=== PATIENT | male | born 1960 | race Caucasian/White ===

== ENCOUNTER 2019-02-01 13:18 | Inpatient (IN) ==
[2019-02-01] MEDS ORDERED: NS 1,000 ML ONE (13:28)
[2019-02-01] MEDS ORDERED: NS 1,000 ML IV ONE ×4 (13:33→20:04)
[2019-02-01] MEDS ORDERED: FENTANYL IV ONE ×2 (13:33→16:09)
[2019-02-01] MEDS ORDERED: ZOFRAN IV ONE (13:51)
[2019-02-01 13:55] LABS: BASO# 0.04 X1000 (0.0-0.2); BASO% 0.3 % (0.0-0.8); EOS# 0.57 X1000 (0.0-0.7); HEMATOCRIT 42.8 % (42.0-52.0); HEMOGLOBIN 14.1 g/dL (14.0-18.0); IMM GRAN% 0.7 % (0.0-0.5); LYMPH# 1.93 X1000 (1.2-3.4); LYMPH% 13.6 % (20.5-51.1); MCHC 32.9 g/dL (33-37); MCV 88.1 FL (81-99); MONO# 1.43 X1000 (0.11-0.59); MONO% 10.1 % (1.7-9.3); NEUT# 10.12 X1000 (1.4-6.5); NEUT% 71.3 % (42.2-75.2); PLT 229 X1000 (130-400); RBC 4.86 XMIL (4.7-6.1); RDW 14.6 % (11.5-14.5); WBC 14.19 X1000 (4.8-10.8)
[2019-02-01 14:19] LABS: INR 0.85; PROTIME 12.1 Seconds (11.0-16.0)
--- NOTE | 2019-02-01 14:22 | EKG Report ---
Test Performed on : 02/01/2019 1:25:23 PM Test Reason : CP Blood Pressure : / mmHG Vent. Rate : 099 BPM Atrial Rate : 099 BPM P-R Int : 140 ms QRS Dur : 134 ms QT Int : 362 ms P-R-T Axes : 029 -42 030 degrees QTc Int : 464 ms Normal sinus rhythm. Left axis deviation Right bundle branch block Abnormal ECG When compared with ECG of 23-JAN-2019 09:08, (Unconfirmed) Vent. rate has increased BY 39 BPM Right bundle branch block is now present Criteria for Inferior infarct are no longer present Unconfirmed Result
--- NOTE | 2019-02-01 14:41 | Diag Imaging Result Doc PS360 ---
EXAM: CHEST-PORTABLE HISTORY: CP TECHNIQUE: Single view of the chest was performed portably. COMPARISON: 01/23/2019 FINDINGS: There are reduced lung volumes. There is pulmonary vascular congestion with peribronchial cuffing and prominent interstitial markings and basilar alveolar infiltrates compatible with cardiogenic edema. There may be trace effusions. No focal consolidation. IMPRESSION: Bilateral infiltrates suggestive of cardiogenic edema . Electronically signed by Lola Smith 02/01/2019 2:38 PM
[2019-02-01 14:42] LABS: ALBUMIN 3.8 g/dL (3.5-5.0); CALCIUM 8.5 mg/dL (8.8-10.2); CREATININE 1.3 mg/dL (0.7-1.2); MAGNESIUM 1.6 mg/dL (1.5-2.7); POTASSIUM 4.1 mmol/L (3.5-5.1); TOTAL BILIRUBIN 2.2 mg/dL (0.20-1.00); TOTAL PROTEIN 6.7 g/dL (6.3-8.3)
[2019-02-01 15:13] LABS: OCCULT BLOOD 1 NEGATIVE (NEGATIVE)
[2019-02-01 15:54] LABS: BILIRUBIN URINE NEGATIVE (NEGATIVE); BLOOD URINE TRACE (NEGATIVE); CLARITY CLEAR (CLEAR); COLOR AMBER; GLUCOSE URINE NEGATIVE (NEGATIVE); KETONE URINE TRACE mg/dL (NEGATIVE); LEUKOCYTES URINE TRACE (NEGATIVE); NITRITE URINE NEGATIVE (NEGATIVE); PROTEIN URINE 1+(30 mg/dL) mg/dL (NEGATIVE); UROBILINOGEN URINE 1 mg/dL
[2019-02-01 15:57] LABS: URINE RBC <10 /HPF (<10)
[2019-02-01 15:58] LABS: URINE BACTERIA 1+ /HFP; URINE CAST EPITHELIAL PRESENT /LPF; URINE CRYSTAL NONE SEEN /HPF; URINE EPITHELIAL CELLS <10 /HPF (<10); URINE SOURCE CLEAN CATCH; URINE YEAST NONE SEEN /HPF
--- NOTE | 2019-02-01 16:33 | Diag Imaging Result Doc PS360 ---
EXAM: CT ANGIOGRM PULMONARY ARTERIES HISTORY: Hypotension s/p cardiac stenting TECHNIQUE: Routine with IV contrast. COMPARISON: 12/25/2014 FINDINGS: There is scattered atherosclerotic calcification within the aorta unchanged from prior. Prominent mediastinal and paraesophageal lymph nodes lymph nodes have decreased from prior study. There are calcified subcarinal change. There is no mediastinal hematoma. No pericardial effusion. No evidence for acute pulmonary embolism. No evidence for aortic aneurysm or dissection. There are bilateral reticular, peripheral infiltrates increased from the prior studies within the upper lobes and lower lobes., particularly the right lower lobe where there is a suggestion of of honeycombing. No effusion or pneumothorax. IMPRESSION: 1.No evidence for acute pulmonary embolism. 2.Increasing bilateral upper and lower peripheral interstitial infiltrates most marked within the right lower lobe where there may be honeycombing. Infectious pneumonitis is considered as is idiopathic pulmonary fibrosis. Correlate clinically. 3.Interval decrease in mediastinal lymphadenopathy. 4. This exam was performed using automated exposure control, adjustment of mA or kV according to patient size, and/or use of iterative reconstruction technique. Electronically signed by Lola Smith 02/01/2019 4:31 PM
[2019-02-01] MEDS ORDERED: ZOSYN 4.5 GM in NS 100 ML IV ONE (16:47)
[2019-02-01] MEDS ORDERED: VANCOMYCIN 1 GM/NS 1 GM/250 ML IVPB IV ONE (16:47)
--- NOTE | 2019-02-01 17:08 | Diag Imaging Result Doc PS360 ---
EXAM: CT ANGIOGRAM ABDOMEN 02/01/2019 HISTORY: uper abd pain, recent NSTEMi TECHNIQUE: This exam was performed using automated exposure control, adjustment of mA or kV according to patient size, and/or use of iterative reconstruction technique. COMMENT: There are coarse interstitial opacities in both lung bases. This is slightly worse than on the previous study of 11/20/2016. There is no evidence of bowel obstruction or abnormal fluid collections. Some of the groundglass opacity which was present previously is no longer present in the right costophrenic sulcus. 3-D MIPS were performed. There is splenomegaly. This has not changed since the previous study. The adrenal glands are not enlarged. There is apparent ostial stenosis of the celiac artery. There are atherosclerotic calcifications in the proximal superior mesenteric artery. There are noncalcified plaques in the infrarenal abdominal aorta. The right renal arteries appear to be patent. There is a small accessory lower pole artery on the right. There are also two left renal arteries. The inferior mesenteric artery is apparently patent. The maximum AP diameter of the infrarenal abdominal aorta is 2.3 cm. There is a fat-containing umbilical hernia. There are atherosclerotic calcifications in both common iliac arteries. There is bilateral spondylolysis at L5. There is vacuum disc phenomenon at L5-S1. IMPRESSION: Atherosclerotic changes as described Electronically signed by Guillermo Myles 02/01/2019 5:06 PM
--- NOTE | 2019-02-01 17:46 | PROVIDER DOCUMENTATION ---
This chart was entered by Nessa Chávez Scribe, acting as scribe for Sina Giles MD. HPI-Cardiac General - General Chief Complaint: Chest Pain Stated Complaint: CHEST PAIN / SWEATING Time Seen by Provider: 02/01/19 13:24 Source: patient, family () Allergies/Adverse Reactions: Patient Allergies Allergy/AdvReac Type Severity Reaction Status Date / Time No Known Allergies Allergy Verified 11/19/16 12:26 Home Medications: Home Medication List Medication Instructions Recorded Confirmed Last Taken Type Leflunomide [Arava] 20 mg PO DAILY 11/19/16 02/01/19 11/18/16 04:00 History RAMIpril [Altace] 10 mg PO DAILY 11/19/16 02/01/19 11/18/16 04:00 History Budesonide/Formoterol Inhaler 2 puff INH RTBID #1 inhaler 11/23/16 02/01/19 Un known Rx [Symbicort 160/4.5 Microgm Inhaler] Albuterol Sulfate Inhaler 2 puff INH Q2H PRN PRN #1 inhaler 10/30/17 02/01/19 Unknown Rx [Ventolin Hfa] Prednisone 1 tab PO TID 01/23/19 02/01/19 Unknown History Aspirin [Aspirin EC] 1 tab PO DAILY 02/01/19 02/01/19 Unknown History Atorvastatin Calcium 40 mg PO HS 02/01/19 02/01/19 Unknown History Metoprolol Tartrate 1 tab PO BID 02/01/19 02/01/19 Unknown History Pantoprazole [Protonix] 1 tab PO DAILY 02/01/19 02/01/19 Unknown History Ticagrelor [Brilinta] 90 mg PO DAILY 02/01/19 02/01/19 Unknown History - History of Present Illness-Cardiac Nature of Presenting Problem: 58 yom presents to ED c/o chest pain, sweatiness, diarrhea and SOB for last 3 days that has gotten worse today. Pt reports he had KS and stent placement [address] Taylor in [place]. Pt has hx of COPD, HTN, KS, CAD. Pt denies abdominal pain, or vomiting. Location: reports: central Quality of Pain: reports: pressure, tightness Severity in ED: severe Onset/Duration: 3 days ago Timing: still present, getting worse Modifying Factors: improves with: nothing Prior Chest Pain/Cardiac Workup: reports: heart attack (stent placed last week in [place]) Associated Symptoms: reports: diaphoresis, shortness of breath, weakness Similar Symptoms Previously?: Yes (KS 1 week ago) Recently Seen Here or By Another Healthcare Provider: Yes (Dr. Taylor) Review of Systems - Adult - REVIEW OF SYSTEMS - ADULT Constitutional: reports: see HPI, chills, fatique Eyes: reports: no symptoms reported Ears, Nose, Mouth & Throat: reports: no symptoms reported Cardiovascular: reports: see HPI, chest pain. denies: syncope Respiratory: reports: see HPI, shortness of breath. denies: cough Gastrointestinal: reports: see HPI, diarrhea, nausea. denies: abdominal pain Genitourinary: reports: no symptoms reported Musculoskeletal: reports: no symptoms reported Integumentary: reports: no symptoms reported Neurological: reports: no symptoms reported Psychiatric: reports: no symptoms reported Endocrine: reports: no symptoms reported Hematologic/Lymphatic: reports: no symptoms reported Allergic/Immunologic: reports: no symptoms reported All Other Systems: Reviewed and Negative Past History - Adult - PAST MEDICAL HISTORY-ADULT Review of Records: reports: Old Records Reviewed, Nursing Assessment Review, Medications Reviewed, Social history reviewed & non-contributory. Major Childhood Illnesses: reports: denies history Cardiovascular: reports: HTN. 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) Respiratory: reports: COPD, lung disease, sleep apnea Gastrointestinal: reports: denies history Obstetrical/Gynecological: reports: denies history Genitourinary: reports: denies history Musculoskeletal: reports: arthritis Neurological: reports: denies history Psychiatric: reports: denies history Endocrine/Immune: reports: denies history Other Conditions: reports: denies history - PRIOR SURGERIES/PROCEDURES Surgical/Procedure History: reports: cholecystectomy - IMMUNIZATION STATUS Childhood Immunizations: See Nurse Assessment Flu Vaccine: See Nurse Assessment - FAMILY HISTORY Family History: reviewed, not pertinent - SOCIAL HISTORY Smoking: cigarettes, greater than 1 pack/day Provider spent 3-5 mins advising pt. on dangers of tobacco.: Discussed manners to quit use, and f/u contacts for add'l counseling. Physical Exam-General - PHYSICAL EXAM-ADULT Initial Vital Signs Reviewed: Yes - CONSTITUTIONAL General Appearance: severe distress, cachetic, lethargic. negative: appears well, combative - HEAD, EARS, NOSE, MOUTH & THROAT HENMT: moist mucous membranes, normal ENT inspection. negative: angioedema - NECK Neck: non-tender, full range of motion, supple, normal inspection. negative: Brudzinski's sign, carotid bruit - RESPIRATORY Respiratory: wheezing (inspiratory and expiratory bilaterally) - GASTROINTESTINAL (ABDOMEN) Abdominal Exam: normal bowel sounds, non tender, soft. negative: rigid, rebound, tenderness - LYMPHATIC Lymphatic: no adenopathy. negative: striations - MUSCULOSKELETAL Extremity: normal inspection. negative: swelling - SKIN Integumentary: diaphoresis. negative: jaundice, laceration(s) - HEART Score HEART Score: History: Moderately Suspicious HEART Score: ECG: Non-Specific Repolarization Disturbance/LBBB/PM HEART Score: Age: 45-65 Years HEART Score: Risk Factors for Atherosclerotic Disease: > or = 3 Risk Factors or History of Atherosclerotic Disease HEART Score: Troponin: 1-3x Normal Limit Total HEART Score:: 6 Progress - PLAN OF CARE/RESULTS Progress/Plan/Lab Results: Vital Signs - 8 hr 02/01/19 13:23 02/01/19 13:28 02/01/19 14:30 Temperature 98 F Pulse Rate 94 H 82 Respiratory Rate 25 H 16 Blood Pressure 98/53 117/64 O2 Sat by Pulse Oximetry 95 97 02/01/19 15:47 02/01/19 16:24 Temperature Pulse Rate 89 97 H Respiratory Rate 16 20 Blood Pressure 131/83 136/82 O2 Sat by Pulse Oximetry 98 97 Laboratory Results - last 24 hr 02/01/19 02/01/19 02/01/19 13:26 13:26 13:26 WBC 14.19 H RBC 4.86 Hgb 14.1 Hct 42.8 MCV 88.1 MCH 29.0 MCHC 32.9 L RDW Std Deviation 14.6 H Plt Count 229 MPV 10.0 Immature Gran % (Auto) 0.7 H Neut % (Auto) 71.3 Lymph % (Auto) 13.6 L Logan % (Auto) 10.1 H Eos % (Auto) 4.0 Baso % (Auto) 0.3 Immature Gran # (Auto) 0.10 H Neut # (Auto) 10.12 H Lymph # (Auto) 1.93 Logan # (Auto) 1.43 H Eos # (Auto) 0.57 Baso # (Auto) 0.04 PT INR PTT (Actin FS) Sodium 133 L Potassium 4.1 Chloride 96 L Carbon Dioxide 22 L Anion Gap 15 BUN 23 H Creatinine 1.3 H Estimated GFR/1.73 m2 57 BUN/Creatinine Ratio 18 Glucose 114 H Calculated Osmolality 271 Calcium 8.5 L Magnesium 1.6 Total Bilirubin 2.20 H AST 38 H ALT 42 Alkaline Phosphatase 138 H Creatine Kinase 112 Troponin T Shn-Q-Hkbkryijfmt Pept 141 Total Protein 6.7 Albumin 3.8 Globulin 3.0 Albumin/Globulin Ratio 1.0 Plasma Lactate Urine Source Urine Color Urine Clarity Urine pH Ur Specific [place] Urine Protein Urine Ketones Urine Blood Urine Nitrite Urine Bilirubin Urine Urobilinogen Urine Microscopic RBC Urine WBC Urine Microscopic WBC Ur Epithelial Cells Urine Crystals Urine Bacteria Urine Casts Urine Yeast Urine Glucose Stool Occult Blood Blood Type Antibody Screen 02/01/19 02/01/19 02/01/19 13:26 13:26 13:50 WBC RBC Hgb Hct MCV MCH MCHC RDW Std Deviation Plt Count MPV Immature Gran % (Auto) Neut % (Auto) Lymph % (Auto) Logan % (Auto) Eos % (Auto) Baso % (Auto) Immature Gran # (Auto) Neut # (Auto) Lymph # (Auto) Logan # (Auto) Eos # (Auto) Baso # (Auto) PT 12.1 INR 0.85 PTT (Actin FS) 30.0 Sodium Potassium Chloride Carbon Dioxide Anion Gap BUN Creatinine Estimated GFR/1.73 m2 BUN/Creatinine Ratio Glucose Calculated Osmolality Calcium Magnesium Total Bilirubin AST ALT Alkaline Phosphatase Creatine Kinase Troponin T 0.035 Duq-L-Prhexleeykr Pept Total Protein Albumin Globulin Albumin/Globulin Ratio Plasma Lactate Urine Source Urine Color Urine Clarity Urine pH Ur Specific [place] Urine Protein Urine Ketones Urine Blood Urine Nitrite Urine Bilirubin Urine Urobilinogen Urine Microscopic RBC Urine WBC Urine Microscopic WBC Ur Epithelial Cells Urine Crystals Urine Bacteria Urine Casts Urine Yeast Urine Glucose Stool Occult Blood NEGATIVE Blood Type Antibody Screen 02/01/19 02/01/19 02/01/19 13:55 13:56 15:40 WBC RBC Hgb Hct MCV MCH MCHC RDW Std Deviation Plt Count MPV Immature Gran % (Auto) Neut % (Auto) Lymph % (Auto) Logan % (Auto) Eos % (Auto) Baso % (Auto) Immature Gran # (Auto) Neut # (Auto) Lymph # (Auto) Logan # (Auto) Eos # (Auto) Baso # (Auto) PT INR PTT (Actin FS) Sodium Potassium Chloride Carbon Dioxide Anion Gap BUN Creatinine Estimated GFR/1.73 m2 BUN/Creatinine Ratio Glucose Calculated Osmolality Calcium Magnesium Total Bilirubin AST ALT Alkaline Phosphatase Creatine Kinase Troponin T Wae-S-Zefmalbjljm Pept Total Protein Albumin Globulin Albumin/Globulin Ratio Plasma Lactate 2.2 Urine Source CLEAN CATCH Urine Color BONNIE Urine Clarity CLEAR Urine pH 5.0 Ur Specific [place] 1.010 Urine Protein 1+(30 mg/dL) A Urine Ketones TRACE Urine Blood TRACE Urine Nitrite NEGATIVE Urine Bilirubin NEGATIVE Urine Urobilinogen 1 Urine Microscopic RBC <10 Urine WBC TRACE A Urine Microscopic WBC 10-20 A Ur Epithelial Cells <10 Urine Crystals NONE SEEN Urine Bacteria 1+ Urine Casts EPITHELIAL PRESENT Urine Yeast NONE SEEN Urine Glucose NEGATIVE Stool Occult Blood Blood Type O POSITIVE Antibody Screen NEGATIVE 02/01/19 16:25 WBC RBC Hgb Hct MCV MCH MCHC RDW Std Deviation Plt Count MPV Immature Gran % (Auto) Neut % (Auto) Lymph % (Auto) Logan % (Auto) Eos % (Auto) Baso % (Auto) Immature Gran # (Auto) Neut # (Auto) Lymph # (Auto) Logan # (Auto) Eos # (Auto) Baso # (Auto) PT INR PTT (Actin FS) Sodium Potassium Chloride Carbon Dioxide Anion Gap BUN Creatinine Estimated GFR/1.73 m2 BUN/Creatinine Ratio Glucose Calculated Osmolality Calcium Magnesium Total Bilirubin AST ALT Alkaline Phosphatase Creatine Kinase Troponin T 0.038 Oly-V-Bqvogdaikbn Pept Total Protein Albumin Globulin Albumin/Globulin Ratio Plasma Lactate Urine Source Urine Color Urine Clarity Urine pH Ur Specific [place] Urine Protein Urine Ketones Urine Blood Urine Nitrite Urine Bilirubin Urine Urobilinogen Urine Microscopic RBC Urine WBC Urine Microscopic WBC Ur Epithelial Cells Urine Crystals Urine Bacteria Urine Casts Urine Yeast Urine Glucose Stool Occult Blood Blood Type Antibody Screen Orders Category Date Time Status Cardiac Monitoring DIRECTED Care 02/01/19 13:31 Active Notify MD of + Sepsis Screen NOW Care 02/01/19 17:05 Active Notify Physician As Ordered Care 02/01/19 17:05 Active Saline Loc NOW Care 02/01/19 13:31 Active NPO Diet 02/01/19 13:31 Active CHEST-PORTABLE [RAD] Stat Exams 02/01/19 13:33 Completed CTA [CT ANGIOGRAM ABDOMEN] [CT] Stat Exams 02/01/19 14:44 Completed CTA [CT ANGIOGRM PULMONARY ARTERIES] [CT] Stat Exams 02/01/19 13:49 Completed BLOOD CULTURE [BLDCUL] Stat Lab 02/01/19 13:45 Ordered CBC WITH ELECTRONIC DIFF [HEME] Stat Lab 02/01/19 13:26 Completed CK PROFILE [SP CHEM] Stat Lab 02/01/19 13:26 Completed COMPREHENSIVE METABOLIC PANEL [CHEM] Stat Lab 02/01/19 13:26 Completed LACTATE, PLASMA [CHEM] Lab 02/01/19 17:35 Received LACTATE, PLASMA [CHEM] Lab 02/01/19 20:15 Uncollected LACTATE, PLASMA [CHEM] Stat Lab 02/01/19 13:56 Completed MAGNESIUM [CHEM] Stat Lab 02/01/19 13:26 Completed OCCULT BLOOD SCREEN STOOL PL Stat Lab 02/01/19 13:50 Completed PRO B-NATRIURETIC PEPTIDE Stat Lab 02/01/19 13:26 Completed PROTIME WITH INR [COAG] Stat Lab 02/01/19 13:26 Completed PTT [COAG] Stat Lab 02/01/19 13:26 Completed TROPONIN T Stat Lab 02/01/19 13:26 Completed TROPONIN T Stat Lab 02/01/19 16:25 Completed TYPE & SCREEN [BBK] Stat Lab 02/01/19 13:[address] W/POSS RFLX CULT [URINALYSIS] Stat Lab 02/01/19 15:40 Completed URINE CULTURE [RM] Routine Lab 02/01/19 15:58 Ordered 0.9% Sodium Chloride Inj [Ns] 1,000 ml Med 02/01/19 13:28 Discontinued .ROUTE As directed 0.9% Sodium Chloride Inj [Ns] 1,000 ml Med 02/01/19 13:33 Discontinued IV 999 mls/hr 0.9% Sodium Chloride Inj [Ns] 1,000 ml Med 02/01/19 13:38 Discontinued IV 999 mls/hr Fentanyl Med 02/01/19 13:33 Discontinued 25 microgm IV NOW ONE Fentanyl Med 02/01/19 16:09 Discontinued 50 microgm IV NOW ONE Ondansetron [Zofran] Med 02/01/19 13:51 Discontinued 4 mg IV NOW ONE Piperacillin/Tazobactam [Zosyn] 4.5 gm Med 02/01/19 16:47 Active 0.9% Sodium Chloride Inj [Ns] 100 ml IV NOW Vancomycin 1 gm/Ns Med 04/08/19 16:47 Active 1 gm in 250 ml IV NOW EKG [EKG] Stat Ther 02/01/19 13:31 Draft EKG [EKG] Stat Ther 02/01/19 16:14 Ordered Result Diagrams: 02/01/19 13:26 02/01/19 13:26 - REASSESSMENT Reassessment #1 Time Reassessed: 14:11 Status: improving Reassessment Comment: was given IV fluids and fentanyl and he is feeling better - EKG 1 Time of EKG reading by physician:: 13:30 EKG Read and Signed by:: Sina Giles EKG Interpretation (*Must complete 3 of following elements*): Abnormal Rate: 99 Rhythm: normal sinus [place]: right QRS: RBB Prior EKG Comparison: changes noted (01/23/19) 2 Time of EKG reading by physician:: 16:27 EKG Read and Signed by:: Sina Giles EKG Interpretation (*Must complete 3 of following elements*): Abnormal Rate: 94 Rhythm: nsr [place]: normal QRS: other (bifascicular bloc) PA Interval: normal ST Wave: non-specific ST changes Prior EKG Comparison: unchanged from prior - XRAY 1 XRAY: Bilateral XRAY Study: Chest Impression: See EMR Report (IMPRESSION: Bilateral infiltrates suggestive of cardiogenic edema . Electronically signed by Lola Smith 02/01/2019 2:38 PM) - CT/MRI 1 CT Study: Angiogram Impression: Abnormal, See EMR Report (EXAM: CT ANGIOGRM PULMONARY ARTERIES HISTORY: Hypotension s/p cardiac stenting TECHNIQUE: Routine with IV contrast. COMPARISON: 12/25/2014 FINDINGS: There is scattered atherosclerotic calcification within the aorta unchanged from prior. Prominent mediastinal and paraesophageal lymph nodes lymph nodes have decreased from prior study. There are calcified subcarinal change. There is no mediastinal hematoma. No pericardial effusion. No evidence for acute pulmonary embolism. No evidence for aortic aneurysm or dissection. There are bilateral reticular, peripheral infiltrates increased from the prior studies within the upper lobes and lower lobes., particularly the right lower lobe where there is a suggestion of of honeycombing. No effusion or pneumothorax. IMPRESSION: 1.No evidence for acute pulmonary embolism. 2.Increasing bilateral upper and lower peripheral interstitial infiltrates most marked within the right lower lobe where there may be honeycombing. Infectious pneumonitis is considered as is idiopathic pulmonary fibrosis. Correlate clinically. 3.Interval decrease in mediastinal lymphadenopathy. 4. This exam was performed using automated exposure control, adjustment of mA or kV according to patient size, and/or use of iterative reconstruction technique. Electronically signed by Lola Smith 02/01/2019 4:31 PM 02/01/19 1631 Interpreting Physician: Lola Smith MD Dictated Date/Time: 02/01/19 1618 cc: Sina Giles MD; Ish Collazo MD) 2 MRI Study: Abdomen Impression: Abnormal, See EMR Report ( EXAM: CT ANGIOGRAM ABDOMEN 02/01/2019 HISTORY: uper abd pain, recent NSTEMi TECHNIQUE: This exam was performed using automated exposure control, adjustment of mA or kV according to patient size, and/or use of iterative reconstruction technique. COMMENT: There are coarse interstitial opacities in both lung bases. This is slightly worse than on the previous study of 11/20/2016. There is no evidence of bowel obstruction or abnormal fluid collections. Some of the groundglass opacity which was present pr eviously is no longer present in the right costophrenic sulcus. 3-D MIPS were performed. There is splenomegaly. This has not changed since the previous study. The adrenal glands are not enlarged. There is apparent ostial stenosis of the celiac artery. There are atherosclerotic calcifications in the proximal superior mesenteric artery. There are noncalcified plaques in the infrarenal abdominal aorta. The right renal arteries appear to be patent. There is a small accessory lower pole artery on the right. There are also two left renal arteries. The inferior mesenteric artery is apparently patent. The maximum AP diameter of the infrarenal abdominal aorta is 2.3 cm. There is a fat-containing umbilical hernia. There are atherosclerotic calcifications in both common iliac arteries. There is bilateral spondylolysis at L5. There is vacuum disc phenomenon at L5- S1. IMPRESSION: Atherosclerotic changes as described Electronically signed by Guillermo Myles 02/01/2019 5:06 PM 02/01/19 1706 Interpreting Physician: Guillermo Myles MD Dictated Date/Time: 02/01/19 1657 cc: Sina Giles MD; Ish Collazo MD) - CONSULTS/PCP/HOSPITALIST Notification #1 *Consult/PCP/Hospitalist*: Huy at [facility] in [place] Time Discussed: 13:38 Consult Disposition: other (faxed EKG to him and he will discuss with collegues and call back) #2 Consult: H[facility] at [facility] in [place] Time Discussed: 13:47 Consult Disposition: other (Huy says EKG is unchanged and to keep pt here) #3 Consult: Verenice paged at 1730 Time Discussed: 17:46 Consult Disposition: Admit (Will admit to ICU, he will put in orders.) Departure - Departure Date of Disposition Decision: 02/01/19 Time of Disposition Decision: 17:30 DIAGNOSIS: Acute hypotension, Tobacco use disorder, Recent non-ST elevation myocardial infarction (NSTEMI) Bilateral pneumonia Qualifiers: Pneumonia type: due to unspecified organism Lung location: unspecified part of lung Qualified Code(s): J18.9 - Pneumonia, unspecified organism Disposition: ADMITTED INPATIENT 09 Certified Medical Emergency: Emergent Condition: Fair Referrals and Follow-Ups: Ish Collazo MD [Primary Care Provider] - - Critical Care Note This patient required my direct & personal management of CC.: Yes Total Time (mins): 45 Critical Care Statement: This patient required my direct personal management to treat or rule out processes, the absence of which, could potentiallly result in sudden, clinically significant life or limb threatening deterioration. Attestation - Physician/ XAVIER Attestation Patient care was provided by Advanced Practice Provider:: No The physician spent face to face time with patient:: Yes Advanced Practice Provider documentation review:: Supervising physician onsite and consulted in the evaluation and care of this patient. The physician did have a face to face encounter with the patient. This chart was documented by the indicated scribe, (Nessa Chávez Scribe) and accurately reflects the services I performed and decisions made by me, Sina Giles MD, as attested by the provider's signature.
[2019-02-01] MEDS ORDERED: ZOFRAN ODT PO PRN (18:17)
[2019-02-01] MEDS ORDERED: MORPHINE IV PRN (18:17)
[2019-02-01] MEDS ORDERED: LEVAQUIN 750 MG/D5W 750 MG/150 ML IVPB IV SCH (18:30)
[2019-02-01] MEDS ORDERED: VANCOMYCIN IV PER PHARMACY MISC SCH (18:30)
[2019-02-01] MEDS: TYLENOL PO PRN (18:40)
[2019-02-01] MEDS: DUONEB (A & A) INH SCH ×2 (18:50→22:49)
[2019-02-01] MEDS ORDERED: VANCOMYCIN 1,500 MG in NS 250 ML IV ONE (19:00)
[2019-02-01] MEDS ORDERED: ZOFRAN IV PRN (19:49)
[2019-02-01] MEDS ORDERED: SOLU-CORTEF IV ONE (19:51)
[2019-02-01] MEDS ORDERED: ZYVOX 600 MG/D5W 600 MG/300 ML IVPB IV SCH (20:00)
[2019-02-01] MEDS: NEO-SYNEPHRINE 50 MG in NS 250 ML IV SCH (20:20)
[2019-02-01 20:36] LABS: UR AMPHETAMINES QUAL NONE DETECTED (NONE DETECT); UR BARBITUATES QUAL NONE DETECTED (NONE DETECT); UR BENZODIAZEPIN QUAL NONE DETECTED (NONE DETECT); UR CANNABINOIDS QUAL NONE DETECTED (NONE DETECT); UR COCAINE QUAL NONE DETECTED (NONE DETECT); UR METHADONE QUAL NONE DETECTED (NONE DETECT); UR METHAMPHETAMINE QUAL NONE DETECTED (NONE DETECT); UR OPIATES QUAL PRESUMPTIVE POSITIVE (NONE DETECT); UR OXYCODONE QUAL NONE DETECTED (NONE DETECT); UR PCP QUAL NONE DETECTED (NONE DETECT); UR PROPOXYPHENE QUAL NONE DETECTED (NONE DETECT); UR TCA QUAL NONE DETECTED (NONE DETECT)
--- NOTE | 2019-02-01 20:46 | HISTORY AND PHYSICAL ---
CHIEF COMPLAINT: Patient came in with just not feeling well. HISTORY OF PRESENT ILLNESS: This is a 58-year-old gentleman with a recent stent. He came in for evaluation today. He was having chest pain and he did not tell me that, but he has also had diarrhea for the last 24 hours, 48 hours, shortness of breath. He had an DC and stent placement about a week ago per Dr. Taylor. He has a history I think of rheumatoid arthritis for which he takes prednisone 30 mg a day and leflunomide as well. In any case, he is on Brilinta and aspirin. When he came in he was hypotensive. Blood pressure was in the low 170s, was reported to me, although not recorded although his triage vitals, I do not see a triage blood pressure though, but it was reported as low as in the 70s. In any case, he was given fluids and then he was admitted for treatment. He had a pulmonary arteriogram which showed no PE and some infectious pneumonitis. Abdominal arteriogram which showed no significant pathology. But in any case, his blood pressure is now stabilized. He does have a temperature of a 100.7. His white count is 14,000 and I am suspicious he has got pneumonia, possible institutional acquired pneumonia. His EKG did not show any ischemic changes. He had a right bundle, but it was not new nor is that technically criteria for ischemia, at least a new right bundle. In any case, his initial troponins have been negative. Dr. Giles called [place] for evaluation for transfer, which they felt that this was not cardiac as he had two sets of cardiac enzymes and his EKG was negative, and that this was possible sepsis. Now, he told me, the patient reports to me though he stopped his prednisone about 3 days ago because he has run out, so this also could be adrenal crisis. The patient admitted for multiple issues. PAST MEDICAL HISTORY: 1. CAD status post PCI, I do not have that data at this point. 2. COPD. 3. Rheumatoid arthritis. 4. Dyslipidemia. 5. Denies diabetes. PAST SURGICAL HISTORY: He has had a cholecystectomy. SOCIAL HISTORY: He smokes a pack a day. He has done that for probably 40 years. He drinks about a case every 2 days, but he stopped drinking he reports about two weeks ago. ALLERGIES: No known drug allergies. MEDICATIONS: He takes Altace 10 daily, Arava 20 daily, aspirin 81 daily, atorvastatin 40 daily, Brilinta 90 daily, metoprolol 25 b.i.d., prednisone 10 t.i.d., Protonix 40 daily, Symbicort 2 b.i.d. and albuterol. REVIEW OF SYSTEMS: Otherwise, negative x a 10-point review of systems. PHYSICAL EXAMINATION: VITAL SIGNS: His current blood pressure I think was 83 systolic, heart rate 99, respiratory rate 16, temp 100.7. 100% on 2 L. GENERAL: A well-developed male in mild distress associated with problems. He is mildly lethargic. HEENT: Eyes are injected. Pupils equal, round, reactive to light. Ears, nose, and throat exam he had moist mucous membranes. Teeth exam is stable. NECK: Supple. CARDIOVASCULAR: Was tachy, but regular. No murmurs, gallops or rubs. PULMONARY: Rales at the bases. No wheezing. GASTROINTESTINAL: GI was soft, nontender, nondistended. Bowel sounds are positive. NEUROLOGIC: Nonfocal. MUSCULOSKELETAL: Strength was 4/5 in all 4 extremities. LABORATORY DATA: Creatinine 1.3. White count 14, hemoglobin and hematocrit 14 and 42, platelets 229,000. D-dimer was elevated. Urine was clear. Heme negative. UDS was not obtained. EKG showed a right bundle which is not new per [facility]'s EKG data. CT scan showed interstitial airspace disease, which could be pneumonia or pulmonary fibrosis. Not a clear lobar consolidation. ASSESSMENT: This is a 58-year-old gentleman who came in with shock, essentially hypotension, persistent hypotension with a complete evaluation in the ER which showed some interstitial air space disease. Concern is shock associated with sepsis. Cardiogenic shock is possible. He does have some interstitial infiltrates, but he has a white count, recent hospitalization and fever and reports cough and is at risk because of chronic immunosuppression for pneumonia. We will try broad-spectrum antibiotics. He has been placed on vancomycin, which I guess we will continue that, and I am going to add cefepime for gram-negative coverage for gram- negative type pneumonia. Problem List: 1. Atypical pneumonia with possible shock. We will continue empiric antibiotics. He has been placed on Levaquin, cefepime and vancomycin. At this point I am just going to leave him on the vancomycin and cefepime. Avoid Levaquin. We have gotten cultures. We will continue supportive care. 2. Shock. We will evaluate his EF with an echo to make sure there is not cardiac shock. We will try to get records from there as well and follow clinically. We will continue fluid resuscitation and monitor closely. His lactate was not consistent with that, but he will need vasopressors, will start Maurilio-Synephrine. 3. Recent non-STEMI with PCI. We will do serial enzymes. We will try to avoid vasopressors if we can, but we need to make sure that he does not have any major issues there. I am going to try to get records from [facility] just to see what is going on. We will continue his aspirin and Brilinta and attempt to get a Cardiology evaluation. 4. Rheumatoid arthritis. Aware of diagnosis. I am concerned about adrenal crisis. We will get a Cortrosyn stim test. I have ordered hydrocortisone and we will follow. DISPOSITION: Pending his clinical status. TIME SPENT: 35 minute critical care time for shock and vasopressors. cc: MD Dr. Brandon Lew MD [facility]
[2019-02-01] MEDS ORDERED: LOPRESSOR PO SCH (21:00)
[2019-02-01] MEDS: LIPITOR PO SCH (21:05)
[2019-02-01] MEDS: MAXIPIME 2 GM in NS 100 ML IV SCH (21:14)
[2019-02-01 21:26] LABS: BILIRUBIN URINE NEGATIVE (NEGATIVE); BLOOD URINE 2+ (NEGATIVE); COLOR AMBER; GLUCOSE URINE NEGATIVE (NEGATIVE); KETONE URINE NEGATIVE (NEGATIVE); LEUKOCYTES URINE TRACE (NEGATIVE); NITRITE URINE POSITIVE (NEGATIVE); PROTEIN URINE 2+(100 mg/dL) mg/dL (NEGATIVE); URINE SOURCE CATH; UROBILINOGEN URINE NORMAL
[2019-02-01 21:27] LABS: CLARITY CLOUDY (CLEAR)
[2019-02-01] MEDS: MORPHINE IV PRN (21:31)
[2019-02-01 21:44] LABS: URINE BACTERIA 2+ /HFP; URINE EPITHELIAL CELLS <10 /HPF (<10); URINE WBC <10 /HPF (<10)
[2019-02-01 22:01] LABS: CK INDEX 0.9 (0.0-2.5); CK-MB 5.8 ng/mL (0.0-5.0)
[2019-02-01] MEDS ORDERED: ZOSYN 3.375 GM in NS 50 ML IV SCH (23:00)
[2019-02-02 01:53] LABS: CK-MB 6.68 ng/mL (0.0-5.0)
[2019-02-02] MEDS: DUONEB (A & A) INH SCH ×2 (03:40→08:00)
[2019-02-02] MEDS ORDERED: SOLU-CORTEF IV SCH (04:00)
[2019-02-02] MEDS: LOVENOX SUBQ SCH (05:48)
[2019-02-02] MEDS: TYLENOL PO PRN ×2 (05:48→10:56)
[2019-02-02] MEDS: MAXIPIME 2 GM in NS 100 ML IV SCH ×2 (07:35→21:05)
[2019-02-02 07:43] LABS: BASO# 0.01 X1000 (0.0-0.2); BASO% 0.1 % (0.0-0.8); EOS# 0.21 X1000 (0.0-0.7); EOS% 1.5 % (0.0-10.0); HEMOGLOBIN 12.9 g/dL (14.0-18.0); IMM GRAN# 0.05 X1000 (0.0-0.04); IMM GRAN% 0.4 % (0.0-0.5); LYMPH# 0.48 X1000 (1.2-3.4); LYMPH% 3.4 % (20.5-51.1); MCH 29.3 PG (27-31); MCHC 33.1 g/dL (33-37); MCV 88.4 FL (81-99); MONO# 0.47 X1000 (0.11-0.59); MONO% 3.4 % (1.7-9.3); MPV 10.4 FL (7.4-10.4); NEUT# 12.75 X1000 (1.4-6.5); NEUT% 91.2 % (42.2-75.2); PLT 176 X1000 (130-400); RBC 4.41 XMIL (4.7-6.1); RDW 14.7 % (11.5-14.5); WBC 13.97 X1000 (4.8-10.8)
--- NOTE | 2019-02-02 07:54 | EKG Report ---
Test Performed on : 02/01/2019 4:25:08 PM Test Reason : repeat for chest pain Blood Pressure : / mmHG Vent. Rate : 094 BPM Atrial Rate : 094 BPM P-R Int : 142 ms QRS Dur : 138 ms QT Int : 378 ms P-R-T Axes : 043 -68 046 degrees QTc Int : 472 ms Normal sinus rhythm. Right bundle branch block Left anterior fascicular block Bifascicular block Abnormal ECG When compared with ECG of 01-FEB-2019 13:25, (Unconfirmed) No significant change was found Unconfirmed Result
[2019-02-02] MEDS: ASPIRIN EC PO SCH (08:27)
[2019-02-02] MEDS ORDERED: BRILINTA PO SCH (09:00)
[2019-02-02] MEDS ORDERED: ARAVA PO SCH (09:00)
[2019-02-02] MEDS: MORPHINE IV PRN (10:12)
[2019-02-02] MEDS: NEO-SYNEPHRINE 50 MG in NS 250 ML IV SCH ×2 (10:17→20:09)
[2019-02-02] MEDS ORDERED: ATIVAN IV PRN ×3 (10:52→14:31)
[2019-02-02] MEDS ORDERED: OFIRMEV 1000 MG/ISOTONIC SOLN 1,000 MG/100 ML BOTTLE IV PRN (10:55)
[2019-02-02] MEDS ORDERED: CORTROSYN IV ONE (10:58)
--- NOTE | 2019-02-02 11:02 | EKG Report ---
Test Performed on : 02/02/2019 09:14:12 AM Test Reason : cp Blood Pressure : / mmHG Vent. Rate : 131 BPM Atrial Rate : 131 BPM P-R Int : 128 ms QRS Dur : 122 ms QT Int : 322 ms P-R-T Axes : 054 -54 038 degrees QTc Int : 475 ms Sinus tachycardia. with occasional premature ventricular complexes. Right bundle branch block Left anterior fascicular block Bifascicular block Cannot rule out Inferior infarct (masked by fascicular block?) , age undetermined Abnormal ECG When compared with ECG of 01-FEB-2019 16:25, (Unconfirmed) premature ventricular complexes. are now present Confirmed by Mars Downs MD ([id number]) on 02/07/2019 11:14:46 AM
[2019-02-02] MEDS: NICODERM PATCH TD SCH (11:10)
[2019-02-02] MEDS ORDERED: HALDOL IV PRN (11:16)
[2019-02-02 11:56] LABS: BANDS 1 % (0-1); LYMPHS 3 % (21-51); MONO 2 % (1-9); SEGS 94 % (42-75)
[2019-02-02] MEDS: SYMBICORT 160/4.5 MICROGM INHALER INH SCH ×2 (12:10→22:07)
[2019-02-02] MEDS ORDERED: ATIVAN IV ONE (13:13)
[2019-02-02] MEDS ORDERED: MOTRIN PO PRN (13:13)
[2019-02-02] MEDS ORDERED: HALDOL IV ONE (13:15)
[2019-02-02] MEDS ORDERED: VANCOMYCIN 2,100 MG in NS 500 ML IV SCH (14:00)
--- NOTE | 2019-02-02 15:01 | CARDIOLOGY CONSULTATION ---
DATE: 02/02/2019 CHIEF COMPLAINT ON PRESENTATION: Was apparently shortness breath, weakness. HISTORY OF PRESENT ILLNESS: Mr. Rick is a 58-year-old gentleman who apparently had a recent circumflex stent over at [facility]. I do not have access to these records acutely. He apparently has been more short of breath recently. During my history he is quite confused and somewhat somnolent. He was able to be awoken with sternal rub and was briefly appropriate with questioning but quickly goes back to sleep. He initially said his primary community health advocate was Dr. Blum but then on questioning again he reported that he recently saw Dr. Taylor and I believe this may have been on his recent inpatient hospitalization over there. He was apparently here and somewhat hypotensive. He has been out of his prednisone recently. On initial presentation he was febrile and has continued to be so. PAST MEDICAL HISTORY: 1. Significant for coronary disease with previous PCI. We are currently awaiting his data. 2. COPD. 3. Rheumatoid arthritis with a longstanding history of steroid usage. 4. Hyperlipidemia. 5. Hypertension. SOCIAL HISTORY: Patient apparently has a tobacco use history of around 1 pack per day. He drinks a case of beer roughly every 2 days but apparently had a recent cessation of this in the last 1 to 2 weeks. FAMILY HISTORY: Is unable to be obtained is review of systems secondary to the patient's somnolence and confusion. PHYSICAL: He had a temperature on presentation of 100.7 and most recently at 12 today it was 101.9. His heart rate is 119 more recently and per telemetry is in sinus tach, his blood pressure is 82/52.General: He is a somnolent, somewhat restless white male. He is in no acute distress. He is not able to answer questions appropriately on a consistent basis. HEENT: Oropharynx is moist. He has poor dentition. His eye examination shows pink conjunctivae, white sclerae. Neck: Shows no obvious thyromegaly or thyroid tenderness. Cardiovascular: He sounds to be in a regular rhythm. He has a tachycardic rate. He has no murmurs. He has no lower extremity edema. Chest: Sounds clear bilaterally. He has no increased work of breathing. He was not cooperative with the examination. It was a difficult exam. Abdomen: Is soft, nontender. He has no obvious organomegaly. Skin: Warm and dry throughout without any rashes. Neurological: He seems to be moving all extremities well. He does not seem to have any lateralizing deficits but he is not cooperative with the examination. PERTINENT DATA: EKG on the at 1325 shows sinus rhythm 99 beats per minute. He has a right bundle branch block and suggestion of a possible old inferior infarct but Q-waves are somewhat narrow. His subsequent EKG on the at 1625 again shows sinus rhythm with a right bundle branch block, no acute findings noted and his final EKG on the at 9:14 shows sinus tach 131 beats per minute, right bundle branch block. No acute ischemic signs or sign of injury. Laboratory data. White count of 13.9, his hematocrit is 39, his platelet count is 176,000. He has a left shift with a small bandemia. His sodium yesterday was 133, potassium 4.1, BUN 23, creatinine 1.3. His T bilirubin was 2.2. His CK 616, MB 5.8. Cardiac enzymes are negative. His UA was reviewed and shows nitrite positive, blood positive, protein positive, trace WBCs, positive opiates screen on his UDS. 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 His chest x-ray showed bilateral infiltrates suggestive of possible edema. His pulmonary arteriogram shows possible infectious pneumonitis versus idiopathic pulmonary fibrosis. ASSESSMENT: Mr. Rick is a 58-year-old gentleman who presented with shortness of breath and has progressed to confusion. He has been hypotensive. PLAN: He had an echocardiogram performed during this hospitalization that demonstrated a normal ejection fraction with no obvious abnormalities. I would recommend continuation of his dual anti- platelet therapy as currently it seems he has had a PCI but we do not have all of his records available. He is on aspirin and I have increased his Brilinta up to b.i.d. He is on high- intensity statin therapy as well. He is somewhat hypotensive so use of his metoprolol and ramipril is being held. His symptoms seem most consistent with possible infection plus or minus adrenal crisis secondary to acute withdrawal the steroids. I discussed this with Dr. Caldera and we restarted hydrocortisone at 50 IV q.8. At this point, I do not have any acute recommendations. cc: Migue Segura MD
[2019-02-02] MEDS: SOLU-CORTEF IV SCH ×2 (15:37→22:51)
[2019-02-02] MEDS: ATIVAN 20 MG in NS 190 ML IV SCH (15:37)
[2019-02-02] MEDS ORDERED: NS 500 ML IV ONE (15:43)
[2019-02-02] MEDS: XOPENEX NEB INH SCH ×2 (16:08→22:08)
--- NOTE | 2019-02-02 16:16 | PROGRESS NOTE ---
DATE: 02/02/2019 SUBJECTIVE: The patient has no major complaints. OBJECTIVE: Blood pressure is 82/52, heart rate 119, respiratory rate 28, temp is 101.9. Cardiovascular: Tachy. Pulmonary: Occasional wheezes. Gastrointestinal: Soft, nontender, nondistended. Bowel sounds are positive. LABORATORY DATA: White count is 13, hemoglobin and hematocrit 12 and 39, platelets 176,000. CPK is 687. Troponins have been negative. PROBLEM LIST: 1. Pneumonia with sepsis and shock. He is on broad-spectrum antibiotics, which includes cefepime and vancomycin. We will continue to follow closely. Sputum culture is pending. 2. Shock. At this point, I think it is a combination of sepsis, mostly and possibly adrenal shock. He has been off of steroids. We have ordered a Cortrosyn stim test which has been completed and we will initiate stress dose steroids and follow. I have discussed the case with Dr. Segura briefly. His echo looks intact, so I do not think this is an acute cardiac issue. 3. Acute encephalopathy, unclear what is causing confusion. He has a strong alcohol history, which I think may be causing his current predicament. He states he did not have any alcohol 2 weeks prior, but I am not sure if that is accurate, and he may be going through some sort of withdrawal. We started Ativan. I will get an ammonia level and a head CT and follow closely. 4. Pneumonia. We will continue empiric antibiotics. Again, he is on vancomycin and Zosyn. He is febrile. Will continue to monitor. TIME SPENT: Critical care time was at least 30 minutes for septic shock requiring resuscitation. We will continue to follow. cc: Duran Caldera MD
[2019-02-02] MEDS ORDERED: POTASSIUM CHLORIDE 20 MEQ, MAGNESIUM SULFATE 2 GM, THIAMINE 100 MG, FOLIC ACID 1 MG, M.... IV SCH ×6 (17:00)
[2019-02-02] MEDS ORDERED: LASIX IV PRN (18:00)
[2019-02-02 20:11] LABS: INFLUENZA A NEGATIVE (NEGATIVE); INFLUENZA B NEGATIVE (NEGATIVE)
[2019-02-02] MEDS: BRILINTA PO SCH (22:48)
[2019-02-02] MEDS: LIPITOR PO SCH (22:49)
[2019-02-03] MEDS: ATIVAN 20 MG in NS 190 ML IV SCH ×2 (00:57→20:31)
[2019-02-03] MEDS: NEO-SYNEPHRINE 50 MG in NS 250 ML IV SCH ×2 (01:41→13:40)
[2019-02-03] MEDS: LOVENOX SUBQ SCH (05:42)
[2019-02-03] MEDS: SOLU-CORTEF IV SCH ×3 (05:42→22:49)
--- NOTE | 2019-02-03 06:07 | Diag Imaging Result Doc PS360 ---
EXAM: CHEST-PORTABLE HISTORY: dyspnea TECHNIQUE: Portable chest single view COMPARISON: 02/01/2019 FINDINGS: Poor inspiratory effort. There are bilateral infiltrates. These are most dense in the mid left lung and right base. The heart is enlarged. Questionable small right pleural effusion. IMPRESSION: Development of dense bilateral infiltrates Electronically signed by Jules Lucas 02/03/2019 6:04 AM
[2019-02-03 07:47] LABS: CALCIUM 6.8 mg/dL (8.8-10.2); CREATININE 3.9 mg/dL (0.7-1.2); MAGNESIUM 2.2 mg/dL (1.5-2.7); PHOSPHORUS 6.1 mg/dL (2.7-4.5); POTASSIUM 4.5 mmol/L (3.5-5.1)
[2019-02-03 07:56] LABS: BASO# 0.01 X1000 (0.0-0.2); BASO% 0.1 % (0.0-0.8); EOS# 0.11 X1000 (0.0-0.7); EOS% 0.9 % (0.0-10.0); HEMATOCRIT 35.7 % (42.0-52.0); HEMOGLOBIN 11.9 g/dL (14.0-18.0); IMM GRAN# 0.09 X1000 (0.0-0.04); IMM GRAN% 0.8 % (0.0-0.5); LYMPH# 0.18 X1000 (1.2-3.4); LYMPH% 1.5 % (20.5-51.1); MCH 29.5 PG (27-31); MCHC 33.3 g/dL (33-37); MCV 88.4 FL (81-99); MONO# 0.59 X1000 (0.11-0.59); MPV 10.5 FL (7.4-10.4); NEUT# 10.78 X1000 (1.4-6.5); NEUT% 91.7 % (42.2-75.2); PLT 171 X1000 (130-400); RBC 4.04 XMIL (4.7-6.1); RDW 14.9 % (11.5-14.5); WBC 11.76 X1000 (4.8-10.8)
[2019-02-03 07:57] LABS: PTT 41.7 Seconds (22.3-41.8)
[2019-02-03 08:02] LABS: INR 1.24; PROTIME 16.2 Seconds (11.0-16.0)
[2019-02-03] MEDS ORDERED: CALCIUM GLUCONATE 1 GM in NS 50 ML IV ONE (09:00)
[2019-02-03 09:06] LABS: BANDS 2 % (0-1); LYMPHS 1 % (21-51); MONO 4 % (1-9); SEGS 93 % (42-75)
[2019-02-03] MEDS: ASPIRIN EC PO SCH (09:19)
[2019-02-03] MEDS: BRILINTA PO SCH ×2 (09:20→22:47)
[2019-02-03] MEDS: XOPENEX NEB INH SCH ×3 (09:27→22:40)
[2019-02-03] MEDS: SYMBICORT 160/4.5 MICROGM INHALER INH SCH ×2 (09:27→22:40)
[2019-02-03] MEDS: NICODERM PATCH TD SCH (09:42)
[2019-02-03 10:26] LABS: BE -9.9 mmoll (-3.0-3.0); BLOOD TYPE ARTERIAL; HCO3-(ACT) 17.1 mmoll (20.0-26.0); METHB 0.4 % (0.0-1.5); O2(CT) 15.7 mL/dL (15.0-23.0); O2HB 94.2 % (95.0-99.0); PCO2(98.6) 29 mmHg (35-45); PO2(98.6) 76 mmHg (60-100); SAMPLE BLOOD; SAO2 95.7 % (95.0-100.0); THB 11.8 g/dL (11.5-17.4); pH(98.6) 7.32 (7.35-7.45)
[2019-02-03 10:29] LABS: ALLEN TEST YES; MODALITY CANNULA
[2019-02-03] MEDS ORDERED: NS 1,000 ML IV SCH (12:00)
--- NOTE | 2019-02-03 12:38 | PROGRESS NOTE ---
DATE: 02/03/2019 SUBJECTIVE: He is still altered. OBJECTIVE: Vital signs: Blood pressure is 93/63, heart rate 64, respiratory rate 20, temperature 97.8 degrees 99% on 2 L. Cardiovascular: Regular rate and rhythm. Pulmonary: Bilateral breath sounds. Clear to auscultation. He has some rales, some wheezing. GI: Soft, nontender, nondistended. Bowel sounds are positive. LABORATORY DATA: White count is down to 11, hemoglobin and hematocrit 11 and 35, platelets 171,000. INR is up to 1.2. pH 7.32, pCO2 29, PaO2 76, bicarb is down to 15. No gap. BUN and creatinine is 47 and 3.8, calcium is 6.8. His cortisol response was consistent with adrenal insufficiency. His random level was 12, but he only had about a 2 bump after cosyntropin, which it did go up a bit but I think he is still adrenally insufficient. PROBLEM LIST: 1. Chest x-ray shows bilateral infiltrates, now more dense than previously. This is pneumonia, bilateral multilobar gram-negative type pneumonia with sepsis and shock. He is on broad spectrum antibiotics. We placed him on cefepime which will now have to renally adjust. I have stopped his vancomycin because he has got renal failure although I do not think that is the mechanism of it, and we will follow as he is at high risk for worsening deterioration. I think I am going to transfer him to the main hospital for pulmonary evaluation. 2. Shock. He is on vasopressors and apparently is doing a little bit better or at least stabilizing. Will continue hydrocortisone at this time until he is off pressors. We can work on weaning and subsequently but he is still on Maurilio-Synephrine. 3. Encephalopathy. I think this is likely related to alcohol withdrawal, could be just delirium associated with sepsis as well. He reports no alcohol for 2 weeks prior to admission, but I am not entirely sure completely positive there, but ammonia level was normal. Head CT has still not been completed. 4. Acute kidney injury. He likely has acute tubular necrosis from hypotension and sepsis. I have pursued renal consult, checking urine electrolytes. We will continue IV fluids and follow. Stopped anything nephrotoxic. He did get ibuprofen yesterday for fever. He got Lasix for positive fluid balance. That has also since been discontinued. We will continue fluids and follow. I am concerned he may have progression of his acute tubular necrosis. 5. Coronary artery disease status post percutaneous coronary intervention. We will continue his aspirin and Brilinta. We really have no choice from that standpoint at this point. Cardiology is following. At this point, there does not appear to be any evidence of myocardial infarction or cardiogenic shock. We will get a pulmonary consult and consider ID consult as well when he gets transferred. 6. Rheumatoid arthritis and history of chronic steroid use. He is usually on 30 mg of prednisone daily, 10 mg t.i.d. I do think he has adrenal crisis and is currently on hydrocortisone. TIME SPENT: 35 minute critical care time. cc: Duran Caldera MD
[2019-02-03] MEDS: MAXIPIME 1 GM in NS 50 ML IV SCH (13:24)
--- NOTE | 2019-02-03 14:36 | Diag Imaging Result Doc PS360 ---
EXAM: CT HEAD W/O CONTRAST HISTORY: encephalopathy TECHNIQUE: Images were obtained from the skull base to vertex without IV contrast as per standard protocol. COMPARISON: None. FINDINGS: There is diffuse cerebral atrophy. There is a 9 mm hypodensity in the left basal ganglia consistent with lacunar infarct. No evidence for hemorrhage. No extra-axial collections. No midline shift. No hydrocephalus. Paranasal sinuses show mild mucosal thickening. Mastoid air cells are clear. There are cerebrovascular calcifications. IMPRESSION: 1.Suspect 9 mm left lacunar infarct of undetermined age. 2.Atrophy and microvascular disease. This exam was performed using automated exposure control, adjustment of mA or kV according to patient size, and/or use of iterative reconstruction technique. Electronically signed by Lola Smith 02/03/2019 2:33 PM
[2019-02-03 14:42] LABS: ALBUMIN 2.7 g/dL (3.5-5.0); DIRECT BILIRUBIN 0.2 mg/dL (0.00-0.20); TOTAL BILIRUBIN 0.5 mg/dL (0.20-1.00); TOTAL PROTEIN 5.2 g/dL (6.3-8.3)
--- NOTE | 2019-02-03 15:12 | NEPHROLOGY CONSULTATION ---
DATE: 02/03/2019 REASON FOR CONSULTATION: Acute kidney injury. HISTORY OF PRESENT ILLNESS: Mr. Rick is a 58-year-old white male with history of coronary disease and recent PCI in [place]. He also has COPD, history of rheumatoid arthritis, and alcoholism. At the time of my exam, he is sedated with an Ativan drip because of incipient DTs. He presented to the hospital with worsening shortness of breath as well as abdominal pain. He underwent CT angiography which showed no pulmonary embolus, but there was apparently evidence of pneumonitis, bilateral upper and lower peripheral interstitial infiltrates. Based on this, he was admitted to the hospital and treated with empiric broad-spectrum antibiotics. He also underwent CT angiography of the abdomen because of his abdominal pain and recent intervention. He had atherosclerotic disease, but no obvious ischemia or occlusion. His creatinine on presentation was 1.3. He was oliguric over the next 2 days, but he was in positive fluid balance such that he is net positive 3 L since admission. Urine output was 900 mL on day 1 and 1300 mL on day 2, but now his urine output is dropping. In that context, his creatinine was 3.9 today. We were asked to assist with his management. PAST MEDICAL HISTORY: As above. CURRENT MEDICATIONS: Include IV Ativan, acetaminophen, aspirin, atorvastatin, haloperidol, hydrocortisone, cefepime, phenylephrine, nicotine, ticagrelor, linezolid, ondansetron. ALLERGIES: None. SOCIAL HISTORY: As above. He is , but his is not present currently. FAMILY HISTORY: Otherwise noncontributory. REVIEW OF SYSTEMS: Otherwise noncontributory. PHYSICAL EXAMINATION: Blood pressure 93/63, heart rate 62, respirations 22, afebrile. Generally, no acute distress. Skin is warm and dry, somewhat plethoric. Pupils are equal and constricted, and gaze is dysconjugate. Conjunctivae are pink. Oropharynx is dry. Neck is supple. Trachea is midline. No jugular venous distention. PMI is difficult to palpate. Regular rate and rhythm with a gallop. Lungs have equal breath sounds, shallow, a few scattered crackles worse on the right. Abdomen is soft, nontender. Bowel sounds present. No organomegaly or masses or bruits. Extremities have 1+ edema. No clubbing or cyanosis. Neurologic exam is obscured by Ativan. IMPRESSION: Acute kidney injury. Most likely, this is secondary to acute tubular necrosis from hypotension and IV contrast. He had adequate imaging, and so I will not order an ultrasound. Urine electrolytes, urine eosinophils, and urine protein are pending. I have reviewed his medications. No changes are required at this time, except that I did stop his IV fluids. cc: Jeff Mcgrath MD [facility]ITALMounika
[2019-02-03] MEDS ORDERED: NS 250 ML ONE (15:25)
[2019-02-03] MEDS: ZYVOX 600 MG/D5W 600 MG/300 ML IVPB IV SCH (15:37)
[2019-02-03 17:23] LABS: URINE SOURCE CATH
[2019-02-03 17:32] LABS: BILIRUBIN URINE NEGATIVE (NEGATIVE); BLOOD URINE 3+ (NEGATIVE); CLARITY SL. CLOUDY (CLEAR); COLOR YELLOW; GLUCOSE URINE NEGATIVE (NEGATIVE); KETONE URINE TRACE mg/dL (NEGATIVE); LEUKOCYTES URINE NEGATIVE (NEGATIVE); NITRITE URINE NEGATIVE (NEGATIVE); PROTEIN URINE 1+(30 mg/dL) mg/dL (NEGATIVE); UROBILINOGEN URINE NORMAL
[2019-02-03 17:46] LABS: UR CREAT RANDOM 129.2 mg/dL (14-26); UR PROT RANDOM 55.3 mg/dL
[2019-02-03] MEDS: HEPARIN SUBQ SCH (18:37)
[2019-02-03 18:40] LABS: URINE BACTERIA 1+ /HFP; URINE EPITHELIAL CELLS <10 /HPF (<10); URINE WBC <10 /HPF (<10); URINE YEAST NONE SEEN /HPF
[2019-02-03 18:41] LABS: URINE CAST GRANULAR PRESENT /LPF; URINE CRYSTAL NONE SEEN /HPF
[2019-02-03] MEDS: LIPITOR PO SCH (22:49)
[2019-02-04] MEDS: MAXIPIME 1 GM in NS 50 ML IV SCH ×2 (01:29→12:21)
[2019-02-04] MEDS: ZYVOX 600 MG/D5W 600 MG/300 ML IVPB IV SCH ×2 (01:30→14:54)
[2019-02-04] MEDS: HEPARIN SUBQ SCH ×4 (03:38→18:38)
[2019-02-04] MEDS: SOLU-CORTEF IV SCH ×3 (05:57→22:36)
[2019-02-04] MEDS: TYLENOL PO PRN ×2 (06:19→15:02)
[2019-02-04] MEDS ORDERED: HALDOL IV PRN (06:34)
[2019-02-04] MEDS ORDERED: ZOFRAN IV PRN (06:44)
[2019-02-04] MEDS ORDERED: ATIVAN 20 MG in NS 190 ML IV SCH (07:00)
[2019-02-04] MEDS ORDERED: NEO-SYNEPHRINE 50 MG in NS 250 ML IV SCH (07:00)
[2019-02-04 07:18] LABS: BASO# 0.01 X1000 (0.0-0.2); BASO% 0.1 % (0.0-0.8); EOS# 0.58 X1000 (0.0-0.7); EOS% 5.5 % (0.0-10.0); HEMATOCRIT 32.8 % (42.0-52.0); IMM GRAN# 0.04 X1000 (0.0-0.04); IMM GRAN% 0.4 % (0.0-0.5); LYMPH# 0.27 X1000 (1.2-3.4); LYMPH% 2.6 % (20.5-51.1); MCH 29.6 PG (27-31); MCHC 33.5 g/dL (33-37); MCV 88.4 FL (81-99); MONO# 0.42 X1000 (0.11-0.59); MPV 10.1 FL (7.4-10.4); NEUT# 9.16 X1000 (1.4-6.5); NEUT% 87.4 % (42.2-75.2); PLT 195 X1000 (130-400); RBC 3.71 XMIL (4.7-6.1); RDW 14.9 % (11.5-14.5); WBC 10.48 X1000 (4.8-10.8)
--- NOTE | 2019-02-04 07:39 | Diag Imaging Result Doc PS360 ---
EXAM: CHEST-PORTABLE 02/04/2019 HISTORY: pneumonia TECHNIQUE: AP portable at 0725 COMMENT: There is increased interstitial markings particularly on the left. This is definitely worse than on the previous study of 02/01/2019. There is a PICC line on the left with its tip in the superior vena cava. IMPRESSION: Worsened pulmonary edema and/or pneumonia. Electronically signed by Guillermo Myles 02/04/2019 7:37 AM
[2019-02-04 08:09] LABS: ALBUMIN 2.7 g/dL (3.5-5.0); CALCIUM 7.3 mg/dL (8.8-10.2); CREATININE 1.9 mg/dL (0.7-1.2); PHOSPHORUS 3.1 mg/dL (2.7-4.5); POTASSIUM 4.3 mmol/L (3.5-5.1); POTASSIUM 4.4 mmol/L (3.5-5.1)
[2019-02-04] MEDS: NICODERM PATCH TD SCH (08:14)
[2019-02-04] MEDS: ASPIRIN EC PO SCH (08:14)
[2019-02-04 08:15] LABS: CALCIUM 6.9 mg/dL (8.8-10.2)
[2019-02-04] MEDS: BRILINTA PO SCH ×2 (08:17→20:10)
[2019-02-04 09:32] LABS: SEGS 89 % (42-75)
[2019-02-04 09:33] LABS: EOS 1 % (1-10); LYMPHS 5 % (21-51); MONO 5 % (1-9)
[2019-02-04] MEDS: XOPENEX NEB INH SCH ×3 (09:42→22:13)
[2019-02-04] MEDS: SYMBICORT 160/4.5 MICROGM INHALER INH SCH ×2 (09:42→22:11)
[2019-02-04] MEDS: OFIRMEV 1000 MG/ISOTONIC SOLN 1,000 MG/100 ML BOTTLE IV PRN ×2 (12:00→22:43)
--- NOTE | 2019-02-04 12:01 | INFECTIOUS DISEASE CONSULT REP ---
DATE: 02/04/2019 CONCLUSION: The patient has bilateral pulmonary infiltrates which I think are most likely due to a pneumonia. There may be a component of pulmonary venous congestion involved as well. The patient also has a diffuse rash, the etiology of which is unknown by me. It is been there for a month, so I doubt it is related to any medications that the patient has received since coming to the hospital here. Patient told me that in the past day he has been having diarrhea. I think it is possible he has Clostridium difficile diarrhea. RECOMMENDATIONS: I agree with treating the patient with Zyvox and cefepime. The cefepime dose at has been modified because the patient has renal failure. I have ordered a procalcitonin level also. Since the patient said he has had diarrhea in the last day, I have also ordered a stool for C difficile. When the patient is feeling better, I am going to request surgery to get a skin biopsy and send it for pathology as well as culture. DISCUSSION: The patient tells me that he, approximately 10 days ago, started having fever and cough. He became more short of breath. He produced a sputum which was yellow in color. LABORATORY STUDIES: [place] [address], hemoglobin 11, platelet count 195,000. Creatinine is 1.9. GFR is 37. Liver function studies are normal. Streptococcal pneumoniae urine antigen was negative. Swab for influenza was negative. Blood and urine cultures thus far negative. Sputum culture grew normal rosy. PAST MEDICAL HISTORY/REVIEW OF SYSTEMS: Integument: Patient has had a red rash for the past month, the etiology of which is uncertain. I plan to get a skin biopsy from the patient when he is feeling better. Eyes and ears: He denies any trouble hearing or seeing. Neck: No stiffness. Respiratory: See present illness. Cardiac: The patient apparently recently had a myocardial infarction. Currently, he is not complaining of chest pain or palpitations. Genitourinary: No dysuria or flank pain. Gastrointestinal: The patient in the past day started having diarrhea. The patient has not been vomiting. Neurologic: Patient does not have seizures, he has not recently lost motor or sensory function. PREVIOUS HOSPITALIZATIONS AND OPERATIONS: Recently the patient was hospitalized at [facility] for a myocardial infarction and coronary artery stent placement. The patient has had a cholecystectomy. He has had admissions for facial and knee trauma. MEDICAL DISEASES: Positive for morbid obesity, COPD, coronary artery disease, myocardial infarction, rheumatoid arthritis and hyperlipidemia. INFECTIOUS DISEASE HISTORY: Positive for pneumonia and UTI. FAMILY HISTORY: Positive for diabetes mellitus, hypertension, myocardial infarction, and cancer. SOCIAL HISTORY: [place] He has a dog as a pet. 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 He smokes cigarettes and drinks alcoholic beverages. He denies drug abuse. ALLERGIES: The patient's chart lists no known drug allergies. HOME MEDICATIONS: 1. Albuterol inhaler. 2. Aspirin. 3. Atorvastatin. 4. Arava. 5. Symbicort. 6. Metoprolol. 7. Pantoprazole. 8. Prednisone. 9. Altace. Brilinta. PHYSICAL EXAMINATION: Vital Signs: Temperature is 101 degrees, pulse 103, respirations 24, blood pressure 132/72. Patient weighs 270 pounds. General: This is a morbidly obese, middle-aged male. He seems to be short of breath even at rest. Head/eyes/ears/nose/throat: He can hear my spoken words and see near objects. He does not have any white coating on his tongue. Sinuses are not tender. Neck: No pain with movement. Thorax: Patient has an increased AP diameter of the chest. Lungs: Patient has bilateral wheezing. Abdomen: Soft and not tender. Integumentary: Patient has the patient has a diffuse erythematous blotchy type of rash Neurologic: The patient is awake. He can move his extremities. There is no tremor. His sensation was intact to touch. His memory as regarding his medical history was decreased. Thank you for the consult. cc: Wallace Betancourt MD
[2019-02-04] MEDS ORDERED: SODIUM CHLORIDE 0.9% INJ SCH (12:30)
--- NOTE | 2019-02-04 13:52 | CONSULTATION ---
DATE OF CONSULTATION: 02/04/2019 Mr. Rick is 58 years old and he has a history reported to me of feeling short of breath with chest pain. He felt a little bit weak all over. Vision was a little bit blurred and he saw some spots in his vision. There was never any focal loss of visual field, blindness, or diplopia. He did not notice weakness on one side of his body more than the other. He did not lose consciousness. There was no memory gap. He presented and was found to have low blood pressure and fever. He has been afebrile today. Heart rate has ranged 60s to 110s. Systolic blood pressure has ranged 80s to 150s. Echocardiogram showed no source of embolus. Noncontrast CT showed a possible old lacunar area in the left hemisphere. I do not find a prior scan for comparison. Lab included WBC 14,000, down to 10,000 today. He has anemia. Calcium was 6.8 yesterday. BUN has climbed into the 40s. Past history is reported to include ischemic heart disease, coronary stenting, hypertension, dyslipidemia, COPD. He smokes cigarettes. He reports using ethanol regularly, usually 12 beers a day. He thinks he stopped that a week or week and a half prior to admission. reports he drinks several beers daily when off work and then stops drinking beer a day or so before return to work. She reports no history of DTs. Medicines include aspirin and Brilinta, a statin, blood pressure medicines. His urine drug screen was positive for opiates, but I do not see an opiate on his home medicine list. On exam now, Mr. Rick is awake, alert, attentive. He is oriented. Speech is not dysarthric. Language function is intact on bedside testing. I did not test his cognitive function thoroughly. Head and neck are unremarkable. There is no meningismus. Visual hickman are full tested grossly by confrontational finger counting. Extraocular movements are full. Pupils react to bright light. Facial motility is symmetric. Facial sensation is intact. Gag is intact. Tongue is midline. Strength is symmetric in the arms and legs. He has good power throughout. He did well on [id number] testing bilaterally. He reports diminished pinprick appreciation in a stocking pattern bilaterally. Proprioception is good at the great toe MTP joint bilaterally. Reflexes are 1+ at the wrists and absent at the ankles bilaterally. I did not test his gait. IMPRESSION: No definite neurologic diagnosis. The CT finding is noted and may be old and unrelated to his current presentation. He has risk factors for cerebrovascular ischemic problems. 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 There could be a component of alcohol withdrawal to whatever mental status changes were noted earlier, but he seems to be doing well mentally now. The urine drug screen report is noted and other substance use could also be contributing. Blood pressure is better now, but earlier hypotension could also have contributed to any altered mentation. I do not have any urgent suggestion from a neurologic standpoint. 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 When he is settled medically, we need to recommend aggressive management of his cerebrovascular risk factors. Thanks for asking neurology to see Mr. Rick. cc: MD EITAN Castillo III
[2019-02-04] MEDS: PROTONIX IV SCH (15:02)
[2019-02-04] MEDS: ATIVAN IV PRN ×2 (15:10→21:48)
--- NOTE | 2019-02-04 16:30 | PROGRESS NOTE ---
DATE: 02/04/2019 INTERVAL HISTORY: Patient's mental status much improved. Now awake, alert, and following commands well. Off of pressors with reasonable blood pressure. Still requiring a fair amount of oxygen. Still with tremor but tremor is more of a coarse pill-rolling tremor than a fine tremor that I would associated with alcohol withdrawal. No other acute events overnight. No new complaints. Patient had one low-grade fever overnight to 100.3 but then in the early afternoon had another significant fever of 102.8. REVIEW OF SYSTEMS: Twelve point review of systems negative except as per interval history. LABS: WBC 10.4, hemoglobin 11.0, hematocrit 32.8, platelets 195,000. Sodium 131, potassium 4.3, BUN 44, creatinine 1.9, glucose 125. Vital signs: T-max 102.8, pulse 109, respiratory rate 23, blood pressure 138/77, O2 saturation 97% on 3 L nasal cannula. PHYSICAL EXAMINATION: General: No acute distress. Vital signs: As above. HEENT: Normocephalic, atraumatic. Moist mucous membranes. No cervical adenopathy. No jaundice. Cardiovascular: Minimally tachycardic but regular. No murmurs noted. Pulmonary: Few scattered rales and moderate expiratory wheeze but good air entry. No increased work of breathing. Abdomen: Soft, nontender, nondistended. Bowel sounds positive. Extremities: Peripheral pulses intact. No clubbing or cyanosis. Neurologic: Cranial nerves grossly intact. No focal deficits identified. Low-frequency pill-rolling type tremor noted. Psychiatric: Normal mood and affect. Awake, alert, and oriented x3, although he does display some mild confusion intermittently. Skin: No new rashes or lesions identified. ASSESSMENT AND PLAN: 1. Acute hypoxic respiratory failure, pneumonia, septic shock. Patient on broad-spectrum antibiotics with cefepime and Zyvox. ID following and assisting with management. Required pressors initially, but off since last night. Still requiring a fair amount of oxygen, although this is somewhat improved. Continue supportive care and antibiotics as above. 2. Acute hypoxic respiratory failure, multifactorial with pneumonia and likely COPD. Patient with wheezing on exam. Continue nebs, Symbicort. If wheezing worsens then we will consider adding IV steroids. 3. Metabolic encephalopathy. Likely delirium is related to acute infection and sepsis. May have had some aspect of alcohol withdrawal, although patient and family reported no alcohol consumption for approximately 2 weeks prior to admission. Much improved now. Continue to monitor. 4. Acute kidney injury, likely acute tubular necrosis from hypotension and sepsis. Nephrology following. Creatinine significantly improved today. Continue to monitor. 5. Lacunar stroke. Patient with CT showing subacute to chronic lacunar infarct. Does not appear to be acute. No focal deficits identified. Already on dual antiplatelet therapy and high- intensity statin. May need MRI at some point, but no need for further workup until other medical issues are stabilized. 6. Coronary artery disease with recent stent. Continue aspirin and Brilinta. Cardiology following. 7. Rheumatoid arthritis and chronic steroid use. Continue hydrocortisone as it is unclear if possible adrenal insufficiency may have been contributing to his shock.
--- NOTE | 2019-02-04 19:36 | NEPHROLOGY PROGRESS NOTE ---
DATE: 02/04/2019 SUBJECTIVE: He is awake and alert. He is somewhat somnolent but able to answer questions. Moaning continuously. Staff states that he recently had a dose of Ativan, and his mental status has been lower since then. OBJECTIVE: Vital Signs: Blood pressure 138/77, heart rate 109, respirations 33, T-max 102.8 degrees. General: No acute distress. Skin: Warm and dry. Conjunctivae are pink. Neck: Veins are distended. Trachea is midline. Heart: Regular and tachycardic. Lungs: Tachypneic with few scattered rales. Abdomen: Soft, nontender. Bowel sounds present. Extremities: 1+ edema. No clubbing or cyanosis. IMPRESSION: 1. Acute kidney injury. BUN and creatinine are improved today, and urine output is improved. He still has a moderate mixed metabolic acidosis. He is able to take p.o. fluids so we will continue oral hydration today and observe his response over the next 24 hours. cc: Jeff Mcgrath MD
[2019-02-04] MEDS: LIPITOR PO SCH (20:10)
--- NOTE | 2019-02-04 23:00 | CONSULTATION ---
DATE OF CONSULTATION: 02/04/2019 REQUESTING PROVIDER: Jose C Caldera MD. REASON FOR CONSULTATION: Respiratory failure, pneumonia, shock. HISTORY OF PRESENT ILLNESS: This is a 58-year-old male who has medical history of coronary artery disease, COPD, rheumatoid arthritis, hypertension, and hyperlipidemia. He had a recent circumflex stent at [facility]. He presented to the [place] ER on 02/01/2019 with chest pain, sweatiness, diarrhea, and shortness of breath for 3 days. Initial workup in the ER revealed atypical pneumonia with possible shock, sepsis, and altered mental status. He has been admitted to the ICU for further evaluation and management. At the time of my examination, the patient is lying in bed with mild respiratory distress. He reports left lower quadrant abdominal pain. He is diaphoretic, with mild tremor noted. He said he had diarrhea since last time when he was in [facility]. The nurse and the PARTY HOST help him get to the bedside commode. Green, dark, loose stool is noted on the patient's gown and bed. He reports shortness of breath, chest pain, fever, nausea, general weakness, and chronic arthritic knee pain. He has no cough, wheezing or unintentional weight change. PAST MEDICAL HISTORY: 1. Coronary artery disease with previous PCI. 2. COPD. 3. Rheumatoid arthritis, on steroids for a long time. 4. Hyperlipidemia. 5. Hypertension. 6. Cholecystectomy. SOCIAL HISTORY: The patient smokes 1-1/2 packs a day for about 40 years. He drinks every 2 days. He reports no history of illicit drug use. FAMILY HISTORY: Positive for coronary artery disease, heart attack, and cancer. ALLERGIES: No known drug allergies. REVIEW OF SYSTEMS: A 10-point review of systems was conducted, and the pertinent is listed within the HPI. Otherwise noncontributory. PHYSICAL EXAMINATION: Vital Signs: Temperature 100.3, blood pressure 150/68, pulse 101, respiratory rate 29, oxygen saturation 97% on nasal cannula at 2 L. General: Morbidly obese, in mild respiratory distress. Appears diaphoretic and anxious, with mild extremity tremor noted. HEENT: Atraumatic. Trachea midline. Mucosa pink and moist. Respiratory: Tachypnea. Symmetrical excursion. Auscultation revealed early inspiratory crackles bilaterally. Cardiovascular: Regular rate and rhythm. Gastrointestinal: Bowel sounds normoactive in all 4 quadrants. Soft, distended. Tenderness on left lower quadrant. Extremities: No pedal edema. No cyanosis. No clubbing. Dorsalis pedis 1+ bilaterally. Neurologic: Alert and oriented x3. Generalized weakness. Speech fluent. Follows commands. LABORATORY DATA: White blood cells 10.48, hemoglobin 11.0, hematocrit 32.8, platelet 195,000. Sodium 132, potassium 4.4, chloride 102, carbon dioxide 15, BUN 44, creatinine 1.9, glucose 123. IMAGING DATA: Chest x-ray revealed worsening pulmonary edema and/or pneumonia. ASSESSMENT: This is a 58-year-old male with a medical history of coronary artery disease, chronic obstructive pulmonary disease, rheumatoid arthritis, hyperlipidemia, and hypertension. He has been admitted to the ICU since 02/01/2019 with atypical pneumonia, septic shock, and acute encephalopathy. 1. Acute hypoxemic respiratory failure. 2. Septic shock. 3. Pneumonia. 4. Delirium tremens. PLAN: 1. Continue supplemental oxygen. 2. Start BiPAP at bedtime and as needed. 3. Continue antibiotics, steroids, and bronchodilators. 4. Follow up with ABG, CBC, BMP, and chest x-ray. 5. Follow up with blood culture. 6. Continue GI and DVT prophylaxis. 7. Further recommendation pending hospital course. Thank you for the courtesy of this consult. Dictated by EMMANUELLE Quintanilla for Edinson Berg MD cc: EMMANUELLE Quintanilla MD [facility]
[2019-02-05] MEDS: MAXIPIME 1 GM in NS 50 ML IV SCH (01:03)
[2019-02-05] MEDS: ATIVAN IV PRN (01:04)
[2019-02-05] MEDS: ZYVOX 600 MG/D5W 600 MG/300 ML IVPB IV SCH ×2 (02:24→16:26)
[2019-02-05] MEDS: HEPARIN SUBQ SCH ×3 (02:33→21:38)
[2019-02-05 05:33] LABS: BASO# 0.02 X1000 (0.0-0.2); BASO% 0.2 % (0.0-0.8); EOS# 0.56 X1000 (0.0-0.7); EOS% 6.4 % (0.0-10.0); HEMATOCRIT 31.3 % (42.0-52.0); HEMOGLOBIN 10.4 g/dL (14.0-18.0); IMM GRAN# 0.06 X1000 (0.0-0.04); IMM GRAN% 0.7 % (0.0-0.5); LYMPH# 0.34 X1000 (1.2-3.4); LYMPH% 3.9 % (20.5-51.1); MCH 29.3 PG (27-31); MCHC 33.2 g/dL (33-37); MCV 88.2 FL (81-99); MONO% 4.6 % (1.7-9.3); MPV 9.7 FL (7.4-10.4); NEUT# 7.34 X1000 (1.4-6.5); NEUT% 84.2 % (42.2-75.2); PLT 192 X1000 (130-400); RBC 3.55 XMIL (4.7-6.1); RDW 14.6 % (11.5-14.5); WBC 8.72 X1000 (4.8-10.8)
[2019-02-05] MEDS: OFIRMEV 1000 MG/ISOTONIC SOLN 1,000 MG/100 ML BOTTLE IV PRN (05:55)
[2019-02-05] MEDS: SOLU-CORTEF IV SCH ×3 (06:01→21:37)
[2019-02-05 06:03] LABS: AGAP 9; ALBUMIN 2.4 g/dL (3.5-5.0); BUN 28 mg/dL (8-22); CALCIUM 7.8 mg/dL (8.8-10.2); CHLORIDE 104 mmol/L (98-107); COSMO 272; CREATININE 1.2 mg/dL (0.7-1.2); ESTIMATED GFR > 60; GLUCOSE 101 mg/dL (70-104); PHOSPHORUS 2.8 mg/dL (2.7-4.5); POTASSIUM 4.1 mmol/L (3.5-5.1); SODIUM 133 mmol/L (136-145); TCO2 20 mmol/L (25-35)
[2019-02-05] MEDS: BRILINTA PO SCH ×2 (08:42→21:37)
[2019-02-05] MEDS: NICODERM PATCH TD SCH (08:42)
[2019-02-05] MEDS: ASPIRIN EC PO SCH (08:42)
[2019-02-05] MEDS ORDERED: DUONEB (A & A) INH PRN (09:13)
--- NOTE | 2019-02-05 09:15 | PROGRESS NOTE ---
DATE: 02/05/2019 Mr. Rick is more calm today, less tremulous, continues alert and attentive. Voice is strong and speech is not dysarthric. Language function is intact. Limb power is symmetric. Neck is supple without meningismus. I discussed the imaging finding of old left subcortical lacune. He reports no history of clinical stroke and no episode of focal neurologic problem. I do not have any new suggestion from neurology standpoint today. Thanks for asking us to see Mr. Rick. cc: MD EITAN Castillo III
[2019-02-05] MEDS ORDERED: CATHFLO IV ONE (09:16)
[2019-02-05] MEDS ORDERED: STERILE WATER INJ. INJ ONE (09:16)
[2019-02-05] MEDS: XOPENEX NEB INH SCH ×3 (09:25→21:30)
[2019-02-05] MEDS: SYMBICORT 160/4.5 MICROGM INHALER INH SCH (09:26)
[2019-02-05 09:28] LABS: ALLEN TEST YES; BLOOD TYPE ARTERIAL; HCO3-(ACT) 22.6 mmoll (20.0-26.0); METHB 0.9 % (0.0-1.5); MODALITY CANNULA; O2(CT) 13.8 mL/dL (15.0-23.0); O2HB 95.3 % (95.0-99.0); PCO2(98.6) 27 mmHg (35-45); PO2(98.6) 76 mmHg (60-100); SAMPLE BLOOD; SAO2 96.8 % (95.0-100.0); THB 10.2 g/dL (11.5-17.4); pH(98.6) 7.47 (7.35-7.45)
--- NOTE | 2019-02-05 10:04 | Diag Imaging Result Doc PS360 ---
EXAM: CHEST-1 VIEW 02/05/2019 HISTORY: SOB TECHNIQUE: AP portable at 0817 COMMENT: There are reticulonodular opacities throughout both lungs. This is slightly more diffuse in appearance than on 02/04/2019. Still there is somewhat worse opacity in the left upper lobe than elsewhere. There is a PICC line on the left with its tip in the superior vena cava. IMPRESSION: Pulmonary edema and/or pneumonia. Electronically signed by Guillermo Myles 02/05/2019 10:02 AM
[2019-02-05] MEDS: SOLU-MEDROL IV SCH ×2 (12:44→23:22)
[2019-02-05] MEDS: PROTONIX IV SCH (12:44)
[2019-02-05] MEDS ORDERED: BENADRYL IV SCH (14:00)
--- NOTE | 2019-02-05 16:16 | INFECTIOUS DISEASE PROGRESS NO ---
DATE: 02/05/2019 HISTORY OF PRESENT ILLNESS: The patient has bilateral pulmonary infiltrates which I think most likely are due to pneumonia, although there could be a component of pulmonary venous congestion. As regarding the patient's rash, I have discussed with the patient his and it seems that initially the patient had a rash in both axillae and in both groin areas, and since the patient has come in the hospital he has developed a diffuse erythematous rash. Since the diffuse erythematous rash only developed after the patient was in the hospital, I think that it is a better chance that the rash is secondary to one of the medications. I am treating the patient with Zyvox and cefepime, and I think cefepime would be the most likely organism of the 2 antibiotics to cause a rash. MEDICATIONS: The patient currently is getting Zyvox and cefepime, but as mentioned above I think the diffuse rash would be more likely to be secondary to cefepime than Zyvox. Because of that I am going to discontinue cefepime and put the patient on aztreonam. I have already ordered a procalcitonin level so that we can determine if the patient has a bacterial pneumonia or not. PHYSICAL EXAMINATION: Vital Signs: Temperature is 98.1 degrees, pulse 97, respirations 24, blood pressure 163/78. General: This is a ill-appearing middle-aged male. He is in no acute distress however. Head/eyes/ears/nose/throat: He can hear my spoken words and see near objects. Neck: No pain when he turns his head. Lungs: Clear to auscultation. Cardiovascular: Heart rate is regular. Abdomen: Soft and nontender. INTEGUMENT: The patient has a diffuse erythematous rash involving the thorax, arms and legs. He does not seem to have much of a rash left in both axillae and groin areas. LABORATORIES AND RADIOLOGY: Chest x-ray shows reticular nodular opacities bilaterally. Urine Legionella antigen is negative. CBC shows a white count of 8720, hemoglobin 10.4, and platelet count 192,000. Blood gases show a pH of 7.47, a PO2 of 76, and a pCO2 of 27. Creatinine is 1.2. GFR is greater than 60. Blood cultures are pending. Stool for Clostridium difficile antigen and toxin are negative. ASSESSMENT AND PLAN: The patient appears to have pneumonia, although there could be a component of pulmonary venous congestion as well. He also appears to have a diffuse rash secondary to a drug allergy, which in this case I think would be cefepime since the diffuse since the diffuse rash only started when the patient came in the hospital and was started on cefepime. I think Zyvox which is the other antibiotic the patient is on would be much less likely to cause a rash. My plan is to stop cefepime and place the patient on aztreonam 2 g IV every 8 hours. We will continue with Zyvox. COMORBIDITIES: The patient has COPD and rheumatoid arthritis for which he uses immunosuppressive medication. cc: Wallace Betancourt MD MTDD
[2019-02-05] MEDS: AZACTAM 2 GM in NS 100 ML IV SCH ×2 (16:26→23:22)
[2019-02-05] MEDS: BENADRYL IV SCH ×2 (16:27→21:38)
[2019-02-05] MEDS: TYLENOL PO PRN ×2 (16:27→23:22)
--- NOTE | 2019-02-05 17:30 | NEPHROLOGY PROGRESS NOTE ---
DATE: 02/05/2019 SUBJECTIVE: He is doing better overall. Awake and alert. OBJECTIVE: Vital Signs: Blood pressure 163/78, heart rate 97, respirations 24, afebrile. General: No acute distress. Skin: Warm and dry. Conjunctivae are pink. Neck: Neck veins are not distended. Heart: Regular, tachycardic. Lungs: Equal with increased respiratory rate and work of breathing. Abdomen: Benign. Extremities: Trace edema. No clubbing or cyanosis. IMPRESSION: 1. Acute kidney injury. Resolved. 2. Acidosis improved. I will sign off. If I can be of further assistance, please do not hesitate to call. cc: Jeff Mcgrath MD
--- NOTE | 2019-02-05 18:18 | PROGRESS NOTE ---
DATE: 02/05/2019 INTERVAL HISTORY: The patient's encephalopathy remains improved. He transferred to . This morning he developed diffuse hives some superficial peeling, but no blistering. Suspect drug rash related to cefepime. Still requiring some oxygen, but improving slowly. Still some intermittent tachycardia but has been regular and mild. No other acute events overnight. No other new complaints. REVIEW OF SYSTEMS: Twelve-point review of systems negative except as per interval history. LABORATORY DATA: WBC 8.7, hemoglobin 10.4, hematocrit 31.3, platelets 192,000. ABG with pH 7.47, pCO2 is 27, pO2 is 76, O2 saturation 96.8% on 4 L by nasal cannula. Sodium 133, potassium 4.1, bicarbonate 20, BUN 28, creatinine 1.2, calcium 7.8, albumin 2.4. Procalcitonin 21. DIAGNOSTIC DATA: Chest x-ray with pulmonary edema and/or pneumonia. OBJECTIVE: General: No acute distress. Vital signs as above. HEENT: Normocephalic, atraumatic. Moist mucous membranes. No cervical adenopathy. Cardiovascular: Slightly tachycardic but regular. No murmurs noted. Pulmonary: Continued scattered rales and moderate expiratory wheeze but good air entry. No increased work of breathing. Abdomen soft, nontender, nondistended. Bowel sounds positive. Extremities: Peripheral pulses intact. No clubbing or cyanosis. Neurologic: Cranial nerves grossly intact. No focal deficits identified. Tremor stable. Psychiatric: Normal mood and affect. Awake, alert and oriented x3. Skin: Diffuse pink flat rash across arms, chest and abdomen, less on the legs. Some superficial peeling on the arms, but no blistering. ASSESSMENT AND PLAN: 1. Acute hypoxic respiratory failure, pneumonia, septic shock. Patient on broad-spectrum antibiotics with cefepime and Zyvox. Drug rash today, so cefepime being changed to aztreonam. Infectious Disease following and assisting with management. Required pressors initially, but off for almost 48 hours. Still requiring a fair amount of oxygen, although this has improved from admission. Procalcitonin 21, which strongly supports pneumonia rather than pneumonia instead of or in addition to volume overload. BNP also not significantly elevated, again supporting pneumonia over volume overload. Continue supportive care and antibiotics as above. 2. Chronic obstructive pulmonary disease with possible exacerbation. No hypercapnia, but has had wheezing which is not significantly improved over the last couple of days. We will add some additional steroids. Continue DuoNeb and monitor. May be contributing to respiratory status above. 3. Rash most consistent with hives. Suspect drug rash. The most likely culprit is cefepime, so this is being changed to aztreonam. Monitor. 4. Metabolic encephalopathy, likely delirium related to acute infection, sepsis. May have had some aspect of alcohol withdrawal, but likely outside the range for that. Much improved now. Continue to monitor. Discontinue Ativan drip. 5. Acute kidney injury, likely ATN for hypotension and sepsis. Nephrology following. Creatinine markedly improved, likely approaching baseline at this point. Monitor. 6. Lacunar stroke. Patient with CT showing subacute chronic lacunar infarct. Does not appear to be acute. No focal deficits identified. Already on dual antiplatelet therapy and high- intensity statin. May need MRI at some point but no need for further workup at this time. 7. Coronary artery disease with recent stent. Continue aspirin and Brilinta. Cardiology following. 8. Rheumatoid arthritis and chronic steroid use. Continue hydrocortisone, as it is unclear if possible adrenal insufficiency may have been contributing to shock. Remains stable. We will likely begin weaning stress-dose hydrocortisone tomorrow. 9. Hyponatremia, mild, asymptomatic. Monitor. 10. Metabolic acidosis, likely related to kidney failure and improving. Monitor.
[2019-02-05] MEDS: LIPITOR PO SCH (21:37)
[2019-02-06] MEDS: ZYVOX 600 MG/D5W 600 MG/300 ML IVPB IV SCH ×2 (02:48→13:44)
[2019-02-06] MEDS: HEPARIN SUBQ SCH ×4 (02:48→20:27)
[2019-02-06] MEDS: SYMBICORT 160/4.5 MICROGM INHALER INH SCH ×2 (02:58→20:14)
[2019-02-06 03:56] LABS: ALLEN TEST YES; BE -0.2 mmoll (-3.0-3.0); BLOOD TYPE ARTERIAL; HCO3-(ACT) 24.8 mmoll (20.0-26.0); METHB 0.5 % (0.0-1.5); O2(CT) 13.4 mL/dL (15.0-23.0); PCO2(98.6) 36 mmHg (35-45); PO2(98.6) 89 mmHg (60-100); SAMPLE BLOOD; SAO2 97.6 % (95.0-100.0); THB 9.8 g/dL (11.5-17.4); pH(98.6) 7.43 (7.35-7.45)
[2019-02-06 03:57] LABS: MODALITY CANNULA
[2019-02-06] MEDS: BENADRYL IV SCH ×4 (05:23→23:44)
[2019-02-06] MEDS: SOLU-CORTEF IV SCH ×2 (05:23→13:44)
[2019-02-06 05:36] LABS: HEMATOCRIT 29.4 % (42.0-52.0); HEMOGLOBIN 9.5 g/dL (14.0-18.0); MCH 29.6 PG (27-31); MCHC 32.3 g/dL (33-37); MCV 91.6 FL (81-99); MPV 9.5 FL (7.4-10.4); RBC 3.21 XMIL (4.7-6.1); RDW 14.3 % (11.5-14.5); WBC 7.42 X1000 (4.8-10.8)
[2019-02-06 06:09] LABS: AGAP 9; ALBUMIN 2.8 g/dL (3.5-5.0); BUN 23 mg/dL (8-22); CALCIUM 7.8 mg/dL (8.8-10.2); CHLORIDE 108 mmol/L (98-107); COSMO 284; CREATININE 0.8 mg/dL (0.7-1.2); ESTIMATED GFR > 60; GLUCOSE 156 mg/dL (70-104); PHOSPHORUS 2.8 mg/dL (2.7-4.5); POTASSIUM 4.3 mmol/L (3.5-5.1); SODIUM 139 mmol/L (136-145); TCO2 22 mmol/L (25-35)
--- NOTE | 2019-02-06 07:07 | Diag Imaging Result Doc PS360 ---
EXAM: CHEST-1 VIEW 02/06/2019 HISTORY: SOB TECHNIQUE: AP portable at 0612 COMMENT: There is generally worsened alveolar opacity bilaterally consistent with ARDS. There is a PICC line on the left with its tip in the superior vena cava. Heart size remains enlarged. IMPRESSION: Worsening pulmonary edema/ARDS. Electronically signed by Guillermo Myles 02/06/2019 7:05 AM
[2019-02-06] MEDS: TYLENOL PO PRN ×2 (08:21→20:33)
[2019-02-06] MEDS: ASPIRIN EC PO SCH (08:21)
[2019-02-06] MEDS: AZACTAM 2 GM in NS 100 ML IV SCH ×3 (08:21→23:45)
[2019-02-06] MEDS: NICODERM PATCH TD SCH (08:21)
[2019-02-06] MEDS: BRILINTA PO SCH ×2 (08:22→20:27)
[2019-02-06] MEDS ORDERED: LASIX IV ONE (08:23)
[2019-02-06] MEDS: XOPENEX NEB INH SCH ×3 (09:25→20:15)
[2019-02-06] MEDS: SOLU-MEDROL IV SCH ×2 (11:56→23:45)
[2019-02-06] MEDS: PROTONIX IV SCH (11:56)
--- NOTE | 2019-02-06 15:26 | PROGRESS NOTE ---
DATE: 02/06/2019 INTERVAL HISTORY: Rash/hives, much improved. Still requiring a fair amount of oxygen. No other acute events overnight. No new complaints. REVIEW OF SYSTEMS: Twelve point review of systems negative, except as per interval history. LABS: WBC 7.4, hemoglobin 9.5, hematocrit 29.4, platelets 205. ABG with pH 7.43, PCO2 36, PO2 89, O2 saturation 97 on 4 L by nasal cannula. Sodium 139, potassium 4.3, bicarbonate 22. BUN 23, creatinine 0.8, glucose 156, calcium 7.8, albumin 2.8, BNP 1367. IMAGING: Chest x-ray: Slightly worsened pulmonary edema versus ARDS. VITALS: T-max 99.4 degrees, pulse 94, respirations 20, blood pressure 183/86. O2 saturation 92 percent on 4 L by nasal cannula. PHYSICAL EXAMINATION: General: No acute distress. Vitals: As above. HEENT: Normocephalic, atraumatic. Moist mucous membranes. Neck: No cervical adenopathy. Cardiovascular: Regular rate and rhythm. No murmurs noted. Pulmonary: Continued diffuse rhonchi, but wheezing somewhat improved. Good air entry. Abdomen: Soft, nontender, nondistended. Bowel sounds positive. Extremities: Peripheral pulses intact. No clubbing or cyanosis. Neurologic: Cranial nerves grossly intact. No focal deficits identified. Tremor stable. Psychiatric: Normal mood and affect. Awake, alert, oriented x3. Skin: Diffuse hives, largely resolved. ASSESSMENT AND PLAN: 1. Acute hypoxic respiratory failure, pneumonia, septic shock, possible acute respiratory distress syndrome. Patient on broad-spectrum antibiotics with aztreonam and Zyvox. Had drug rash thought to be related to cefepime yesterday, so this was changed to aztreonam. Required pressors initially, but off for greater than 48 hours at this point. Still with increased oxygen requirements, although this has improved from admission. Procalcitonin elevated. Initial BNP negative. Repeat BNP somewhat elevated, but discussed results of echocardiogram with staff, and it was essentially normal. This was performed at [place] and the report is not crossing over for some reason. All of this suggests pneumonia rather than volume overload. Although patient appears clinically somewhat improved, his chest x-ray has been slowly worsening with concern for acute respiratory distress syndrome. We will give a dose of Lasix, and continue antibiotics and monitor. 2. Chronic obstructive pulmonary disease with possible exacerbation. No hypercapnia, but has had some wheezing. Steroids increased yesterday and appears to be improving today. Continue steroids, nebulizers, and monitor. 3. Adrenal insufficiency. Patient with long-term chronic steroid use, and adrenal insufficiency was thought to possibly be contributing to his shock on admission. He has been on stress dose steroids. Blood pressure now markedly improved, so will began decreasing mineral corticoid. 4. Drug rash, improving since changing cefepime to aztreonam. Monitor. 5. Metabolic encephalopathy, likely delirium related to acute infection and sepsis. May have had some aspect of alcohol withdrawal, but likely that is out of the range for that as patient and family both reported no alcohol for at least 4 days prior to admission. Monitor. 6. Acute kidney injury, likely acute tubular necrosis, essentially resolved at this point. Nephrology was following, but now signed off. Monitor. 7. Stroke. Patient with CT showing likely subacute to chronic lacunar infarct. Does not appear to be acute. No focal deficits identified. Already on dual antiplatelet therapy and high- intensity statin. May need MRI at some point, but no need for additional workup at this time. 8. Coronary artery disease with recent stent. Continue aspirin and Brilinta. Cardiology following. 9. Rheumatoid arthritis on chronic steroid use. We will begin decreasing stress dose hydrocortisone. Stable at this time. 10. Hyponatremia, mild, asymptomatic, essentially resolved at this point. 11. Metabolic acidosis, likely related to kidney dysfunction. It appears to be essentially resolved at this point.
[2019-02-06] MEDS: LIPITOR PO SCH (20:27)
[2019-02-07] MEDS ORDERED: CALMOSEPTINE OINTMENT TOP PRN (01:36)
[2019-02-07] MEDS: BENADRYL IV SCH ×2 (04:09→09:56)
[2019-02-07] MEDS: HEPARIN SUBQ SCH ×2 (04:10→15:14)
[2019-02-07] MEDS: ZYVOX 600 MG/D5W 600 MG/300 ML IVPB IV SCH ×2 (04:10→13:39)
[2019-02-07 04:55] LABS: ALLEN TEST YES; BE 1.5 mmoll (-3.0-3.0); BLOOD TYPE ARTERIAL; HCO3-(ACT) 25.9 mmoll (20.0-26.0); METHB 0.9 % (0.0-1.5); O2(CT) 18.9 mL/dL (15.0-23.0); O2HB 92.3 % (95.0-99.0); PCO2(98.6) 34 mmHg (35-45); PO2(98.6) 67 mmHg (60-100); SAMPLE BLOOD; SAO2 93.9 % (95.0-100.0); THB 14.6 g/dL (11.5-17.4); pH(98.6) 7.47 (7.35-7.45)
[2019-02-07 04:56] LABS: MODALITY CANNULA
[2019-02-07 05:30] LABS: HEMATOCRIT 30.2 % (42.0-52.0); HEMOGLOBIN 9.8 g/dL (14.0-18.0); MCH 29.3 PG (27-31); MCHC 32.5 g/dL (33-37); MCV 90.1 FL (81-99); MPV 9.1 FL (7.4-10.4); RBC 3.35 XMIL (4.7-6.1); WBC 8.56 X1000 (4.8-10.8)
[2019-02-07 05:46] LABS: AGAP 13; BUN 25 mg/dL (8-22); CALCIUM 8.6 mg/dL (8.8-10.2); CHLORIDE 105 mmol/L (98-107); COSMO 290; CREATININE 0.8 mg/dL (0.7-1.2); ESTIMATED GFR > 60; GLUCOSE 152 mg/dL (70-104); PHOSPHORUS 2.4 mg/dL (2.7-4.5); SODIUM 142 mmol/L (136-145); TCO2 24 mmol/L (25-35)
[2019-02-07] MEDS: SYMBICORT 160/4.5 MICROGM INHALER INH SCH ×2 (07:23→20:11)
[2019-02-07] MEDS: XOPENEX NEB INH SCH ×4 (07:23→20:12)
--- NOTE | 2019-02-07 07:28 | Diag Imaging Result Doc PS360 ---
EXAM: CHEST-1 VIEW 02/07/2019 HISTORY: SOB TECHNIQUE: AP portable at 0536 COMMENT: There is a PICC line on the left with its tip in the superior vena cava. There is interstitial and alveolar pulmonary edema. This has worsened slightly particularly on the right since the previous study of 02/06/2019. It is definitely worse than on 02/05/2019. IMPRESSION: ARDS. Electronically signed by Guillermo Myles 02/07/2019 7:26 AM
[2019-02-07] MEDS: ASPIRIN EC PO SCH (08:11)
[2019-02-07] MEDS: NICODERM PATCH TD SCH (08:11)
[2019-02-07] MEDS: BRILINTA PO SCH ×2 (08:11→20:15)
[2019-02-07] MEDS: TYLENOL PO PRN ×2 (08:11→20:15)
[2019-02-07] MEDS: CORTEF PO SCH (08:11)
[2019-02-07] MEDS: AZACTAM 2 GM in NS 100 ML IV SCH ×2 (08:11→15:22)
[2019-02-07] MEDS ORDERED: LASIX IV ONE (09:13)
[2019-02-07] MEDS: PROTONIX IV SCH (13:40)
[2019-02-07] MEDS: SOLU-MEDROL IV SCH (13:40)
[2019-02-07] MEDS: LIPITOR PO SCH (20:15)
[2019-02-08] MEDS: AZACTAM 2 GM in NS 100 ML IV SCH ×3 (01:08→17:14)
[2019-02-08] MEDS: ZYVOX 600 MG/D5W 600 MG/300 ML IVPB IV SCH ×2 (01:08→13:37)
[2019-02-08] MEDS: SOLU-MEDROL IV SCH ×3 (01:08→20:21)
[2019-02-08 05:14] LABS: ALLEN TEST YES; BE 3.9 mmoll (-3.0-3.0); BLOOD TYPE ARTERIAL; HCO3-(ACT) 27.9 mmoll (20.0-26.0); METHB 0.7 % (0.0-1.5); O2(CT) 14.6 mL/dL (15.0-23.0); O2HB 95.7 % (95.0-99.0); PCO2(98.6) 42 mmHg (35-45); PO2(98.6) 89 mmHg (60-100); SAMPLE BLOOD; SAO2 97.1 % (95.0-100.0); THB 10.8 g/dL (11.5-17.4); pH(98.6) 7.44 (7.35-7.45)
[2019-02-08 05:15] LABS: MODALITY CANNULA
[2019-02-08 05:25] LABS: HEMATOCRIT 31.1 % (42.0-52.0); MCH 29.2 PG (27-31); MCHC 32.2 g/dL (33-37); MCV 90.7 FL (81-99); MPV 8.9 FL (7.4-10.4); RBC 3.43 XMIL (4.7-6.1); RDW 13.8 % (11.5-14.5); WBC 6.79 X1000 (4.8-10.8)
[2019-02-08 05:50] LABS: AGAP 11; BUN 25 mg/dL (8-22); CALCIUM 8.2 mg/dL (8.8-10.2); CHLORIDE 104 mmol/L (98-107); COSMO 289; CREATININE 0.8 mg/dL (0.7-1.2); ESTIMATED GFR > 60; GLUCOSE 162 mg/dL (70-104); PHOSPHORUS 2.5 mg/dL (2.7-4.5); POTASSIUM 4.2 mmol/L (3.5-5.1); SODIUM 141 mmol/L (136-145); TCO2 26 mmol/L (25-35)
[2019-02-08] MEDS: SYMBICORT 160/4.5 MICROGM INHALER INH SCH ×3 (06:10→19:28)
--- NOTE | 2019-02-08 07:06 | Diag Imaging Result Doc PS360 ---
EXAM: CHEST-1 VIEW HISTORY: SOB TECHNIQUE: Portable chest single view COMPARISON: 02/07/2019 FINDINGS: The lungs are well expanded. Heart is mildly enlarged. There are bilateral diffuse infiltrates/pulmonary edema. These are slightly less dense on the current study. No pleural effusions identified. No change in the left-sided PICC line. IMPRESSION: Slight interval improvement. Electronically signed by Jules Lucas 02/08/2019 7:04 AM
[2019-02-08] MEDS: XOPENEX NEB INH SCH (07:41)
[2019-02-08] MEDS: BRILINTA PO SCH ×2 (08:22→20:20)
[2019-02-08] MEDS: NICODERM PATCH TD SCH (08:22)
[2019-02-08] MEDS: CORTEF PO SCH (08:22)
[2019-02-08] MEDS: ASPIRIN EC PO SCH (08:22)
--- NOTE | 2019-02-08 09:16 | PROGRESS NOTE ---
DATE: 02/08/2019 SUBJECTIVE: The patient reports still having dyspnea with minimal exertion. He reported after he use the bedside commode and goes back to his bed, he is still short of breath and that sensation lasts for at least 5 minutes. The rash he reports is much improved. He is requiring 4 L of oxygen by nasal cannula. OBJECTIVE: Vitals: Temperature 97.2 degrees, heart rate 70 respiratory rate 20, blood pressure 153/76. O2 saturation 99% on 4 L nasal cannula. General: This is a chronically ill appearing 58-year-old male lying in bed in no acute distress. HEENT: Head normocephalic and atraumatic. Neck: No JVD noted. No carotid bruit noted. No lymphadenopathy. No thyromegaly. Cardiovascular: S1 and S2 heard. No murmurs. No gallops or rub. Regular rate and rhythm. Respiratory: Rhonchi is noted in both pulmonary bases. There is still minimal wheezing noted in both pulmonary bases as well. The patient is not using any accessory muscles or having work of breathing. Abdomen: Soft, nontender to palpation. Bowel sounds present. No organomegaly. Extremities: No clubbing, cyanosis, or edema. Peripheral pulses present in both legs. Neurological: The patient is alert and oriented x3. Moves all 4 extremities. LABORATORY DATA: White cell count 6.79, hemoglobin 10.0, hematocrit 31.1 and platelets 277,000. ABG shows pH 7.44 with pCO2 42, PO2 of 89 with normal BMP. ASSESSMENT AND PLAN: 1. Acute hypoxemic respiratory failure secondary to pneumonia. Patient is on aztreonam and Zyvox. White cell count is back to normal. He is requiring still 4 L of oxygen by nasal cannula. We will continue with the same management. The x-ray from today shows slight interval improvement. We will continue with the same medications. 2. COPD with possible exacerbation. Patient is receiving DuoNeb's in this case every 2 hours p.r.n. I think we can do every 4 hours as scheduled and see if that helps. 3. Adrenal insufficiency. Patient has been started on Solu-Medrol 60 mg IV q.12 hours on top of his usual Medrol 20 mg. I think considering this patient has been on 2 steroids, I prefer to decrease the doses of Solu-Medrol to 40 mg IV q.12 hours. We will continue with same management. 4. Drug rash improved. 5. Metabolic encephalopathy resolved. 6. Acute kidney injury resolved. 7. Coronary artery disease with recent stenting. Patient is on Brilinta and aspirin. We will continue with same medication. 8. Rheumatoid arthritis with chronic steroid use. Aware. 9. Physical deconditioning. The patient prefers to go to rehab because he is feeling very weak. We will consult physical therapy, occupational therapy, and social work nurse evaluation. cc: Mihir Cox MD MTDD
--- NOTE | 2019-02-08 09:19 | INFECTIOUS DISEASE PROGRESS NO ---
DATE: 02/08/2019 PRESENT ILLNESS: The patient has a bilateral pneumonia. He developed a severe allergic reaction to cefepime, manifested by hives. MEDICATIONS: The patient has been on Zyvox now for 4 days and aztreonam which was substituted for the cefepime for 3 days. The patient also is receiving steroids. PHYSICAL EXAMINATION: Vital Signs: Temperature is 98.1 degrees, pulse 78, respirations 18, blood pressure 167/94. General: This is a somewhat ill-appearing, middle-aged male. He is in no acute distress. Head, eyes, ears, nose, and throat: He can hear my spoken words and see near objects. He does not have any white patches on his tongue. Lungs: Clear to auscultation. Cardiovascular: Heart rate is regular. Abdomen: Soft and nontender. Neurologic: The patient is awake. He can move his extremities. There is no tremor. Integument: The erythema that was fairly diffuse over the patient's whole body is clearing well. LAB AND X-RAY: CBC shows a white count of 6790, hemoglobin 10, platelet count 277,000. Arterial blood gases show a pH of 7.44, pO2 of 89, and a pCO2 of 42. Creatinine is 0.8. GFR is greater than 60. Procalcitonin is 21, which means that it is very likely he has pneumonia. Blood cultures are sterile. Stool for Clostridium difficile toxins and antigen are positive. Sputum culture grew normal rosy. Urine cultures negative. Chest x-ray shows improvement in the patient's bilateral infiltrates. ASSESSMENT AND PLAN: The patient has pneumonia and he is allergic to cefepime. My plan is to continue with Zyvox and aztreonam. COMORBIDITIES: Include the following: He has COPD and he has rheumatoid arthritis for which he receives treatment with immunosuppressive medication. cc: Wallace Betancourt MD
[2019-02-08] MEDS: DUONEB (A & A) INH SCH ×4 (11:18→22:50)
[2019-02-08] MEDS: PROTONIX IV SCH (13:37)
[2019-02-08] MEDS: TYLENOL PO PRN (14:07)
[2019-02-08] MEDS: LIPITOR PO SCH (20:21)
[2019-02-09] MEDS: AZACTAM 2 GM in NS 100 ML IV SCH ×3 (00:58→17:29)
[2019-02-09] MEDS: ZYVOX 600 MG/D5W 600 MG/300 ML IVPB IV SCH (01:00)
[2019-02-09] MEDS: DUONEB (A & A) INH SCH ×6 (03:30→22:05)
[2019-02-09 05:53] LABS: BASO# 0.01 X1000 (0.0-0.2); BASO% 0.2 % (0.0-0.8); EOS# 0.08 X1000 (0.0-0.7); EOS% 1.3 % (0.0-10.0); HEMATOCRIT 31.1 % (42.0-52.0); HEMOGLOBIN 9.8 g/dL (14.0-18.0); IMM GRAN# 0.24 X1000 (0.0-0.04); IMM GRAN% 3.8 % (0.0-0.5); LYMPH# 0.79 X1000 (1.2-3.4); LYMPH% 12.6 % (20.5-51.1); MCH 28.9 PG (27-31); MCHC 31.5 g/dL (33-37); MCV 91.7 FL (81-99); MONO% 6.4 % (1.7-9.3); MPV 8.9 FL (7.4-10.4); NEUT# 4.76 X1000 (1.4-6.5); NEUT% 75.7 % (42.2-75.2); PLT 320 X1000 (130-400); RBC 3.39 XMIL (4.7-6.1); RDW 13.8 % (11.5-14.5); WBC 6.28 X1000 (4.8-10.8)
[2019-02-09 06:22] LABS: AGAP 9; BUN 22 mg/dL (8-22); CALCIUM 8.2 mg/dL (8.8-10.2); CHLORIDE 106 mmol/L (98-107); COSMO 286; CREATININE 0.6 mg/dL (0.7-1.2); ESTIMATED GFR > 60; GLUCOSE 123 mg/dL (70-104); SODIUM 141 mmol/L (136-145); TCO2 26 mmol/L (25-35)
[2019-02-09] MEDS: SYMBICORT 160/4.5 MICROGM INHALER INH SCH ×2 (07:13→19:20)
--- NOTE | 2019-02-09 07:30 | INFECTIOUS DISEASE PROGRESS NO ---
DATE: 02/09/2019 PRESENT ILLNESS: The patient has bilateral pneumonia associated with pulmonary venous congestion. He had a severe allergic reaction to cefepime manifested by hives. MEDICATIONS: The patient is on day 5 now for Zyvox. The patient has been on aztreonam and, before that, cefepime for also 5 days total. PHYSICAL EXAMINATION: Vital Signs: Temperature is 98.5 degrees, pulse 77, respirations 18, blood pressure 150/73. General: This is an ill-appearing, middle-aged male. He is in no acute distress. He told me that his exercise tolerance is getting better. Head, Eyes, Ears, Nose, and Throat: He can hear my spoken words and see near objects. He does not have any white coating of his tongue. Lungs: Clear to auscultation. Cardiovascular: Heart rate is regular. Abdomen: Soft and nontender. Neurologic: The patient is alert. He can ambulate and his exercise tolerance is improving. Integument: The patient's erythematous rash which was caused by a drug allergy to cefepime is almost completely faded. LAB AND X-RAY: Chest x-ray shows improvement in the bilateral infiltrates. The creatinine is 0.6. GFR is greater than 60. CBC shows a white count of 6280, hemoglobin 9.8, and platelet count 320,000. ASSESSMENT AND PLAN: The patient has bilateral pneumonia. My plan is to continue Zyvox and aztreonam. I have changed Zyvox from being given intravenously to being taken orally. COMORBIDITIES: On this patient include the following: COPD, rheumatoid arthritis for which the patient receives treatment with immunosuppressive medication. cc: Wallace Betancourt MD
--- NOTE | 2019-02-09 07:36 | Diag Imaging Result Doc PS360 ---
CHEST-1 VIEW - 02/09/2019 INDICATION: SOB COMPARISON: 02/08/2019 FINDINGS: Stable left PICC line. Stable cardiomegaly and pulmonary vascular congestion. Stable diffuse bilateral interstitial infiltrates/edema. No significant pleural effusion. IMPRESSION: No change from prior. Electronically signed by Niles Sheth 02/09/2019 7:34 AM
[2019-02-09] MEDS: NICODERM PATCH TD SCH (08:40)
--- NOTE | 2019-02-09 08:40 | PROGRESS NOTE ---
DATE: 02/09/2019 SUBJECTIVE: Patient reports that dyspnea with minimal exertion is getting much better. Also, he is requiring less oxygen supplementation. OBJECTIVE: Vital Signs: Temperature 97.5 degrees, heart rate 76, respiratory rate 18, blood pressure 136/66, O2 saturation 99% on 2 L nasal cannula. General Examination: This is a chronically ill-appearing, 58-year-old, male, lying in bed, in no acute distress. HEENT: Head is normocephalic and atraumatic. Mucous membranes moist. Neck: No JVD noted. No carotid bruits. No lymphadenopathy. No thyromegaly. Cardiovascular Examination: S1 and S2 heard. No murmurs, gallops, or rubs. Regular rate and rhythm. Respiratory Examination: Rhonchi is noted in both pulmonary bases. Minimal wheezing noted in both pulmonary bases as well. Patient is not using any accessory muscles or having work of breathing. Abdomen: Soft. Nontender to palpation. Bowel sounds present. No organomegaly. Extremities: No clubbing, cyanosis, or edema. Peripheral pulses present in both legs. Neurological Examination: The patient is alert and oriented x3. Moves 4 extremities. Laboratory Data: White cell count 6.28, hemoglobin 9.8, hematocrit 31.1, platelets 320,000. BMP unremarkable. ASSESSMENT AND PLAN: 1. Acute hypoxemic respiratory failure secondary to pneumonia. The patient continues to be on Zyvox and aztreonam. White cell count is normal. Patient required less and less oxygen supplementation. I think this patient is getting better. X-ray from yesterday shows slight interval improvement. At this point, we will continue with the same management. Dr. Betancourt from infectious disease is directing antibiotics. 2. Chronic obstructive pulmonary disease exacerbation secondary to pneumonia. As we mentioned above, the patient is receiving DuoNeb every 4 hours scheduled. 3. Adrenal insufficiency. Patient has been started on Solu-Medrol intravenous and also on Cortef by mouth 20 mg. I think at this point, we can stop intravenous Solu-Medrol and continue with Cortef. 4. Metabolic encephalopathy, resolved. 5. Acute kidney injury, resolved. 6. Coronary artery disease with recent stenting. The patient continues to be on Brilinta and aspirin. 7. Rheumatoid arthritis with chronic steroid use. Aware. 8. Physical deconditioning. As we mentioned before, patient prefers to go to a rehab facility. Physical therapy working with this patient. group social worker has been consulted. 9. Disposition. I think this patient is much more stable. She can be sent to a regular floor today. cc: Mihir Cox MD
[2019-02-09] MEDS: BRILINTA PO SCH ×2 (08:41→22:26)
[2019-02-09] MEDS: CORTEF PO SCH (08:41)
[2019-02-09] MEDS: ASPIRIN EC PO SCH (08:41)
[2019-02-09] MEDS ORDERED: BENADRYL IV ONE (11:22)
[2019-02-09] MEDS: PROTONIX IV SCH (11:49)
[2019-02-09] MEDS: SOLU-MEDROL IV SCH ×2 (11:49→22:24)
[2019-02-09] MEDS: ZYVOX PO SCH ×2 (12:36→22:25)
--- NOTE | 2019-02-09 13:44 | PROGRESS NOTE ---
DATE: 02/09/2019 Mr. Rick has recovered mentally. His encephalopathy seems completely resolved. He is awake, alert, attentive, appropriate now. Speech is not dysarthric. Language function is intact on brief bedside testing. Remote memory is good. He is completely oriented to all parameters. He was able to discuss recent news with accurate details. I do not have anything to add from Neurology standpoint now. I will sign off and be glad to see Mr. Rick again if things change. Thanks for asking us to see him. cc: Adrienne Albert III, MD
--- NOTE | 2019-02-09 15:34 | ECHO REPORT ---
ECHOCARDIOGRAPHIC MEASUREMENTS: 1. Interventricular septum 1.4 2. Left ventricular posterior wall 1.2. 3. Diastolic diameter 4.4 4. Left atrium 2.4. 5. Aorta 3.7. SUMMARY: 1. Technically suboptimal study. 2. Aortic valve leaflets were trileaflet, opening normally. Pulmonic valve was normal. Mitral valve was normal. Tricuspid valve was normal. 3. There was mild mitral regurgitation. 4. Peak velocity across the aortic valve less than 2 m/sec. There is no aortic stenosis or regurgitation. 5. Tachycardia was noted heart rate of 111 beats per minute. Normal left ventricular cavity size. Estimated ejection fraction of 60%. 6. There is mild tricuspid regurgitation. Peak velocity across the tricuspid valve was 2.3 m/sec. 7. Anterior echo-free space history of pericardial fat pad was noted. 8. There is no pericardial effusion or obvious intracardiac mass or thrombus seen. cc: MD Duran Denton MD
[2019-02-09] MEDS ORDERED: ZYVOX PO SCH (18:00)
[2019-02-09] MEDS: LIPITOR PO SCH (22:25)
[2019-02-09] MEDS: TYLENOL PO PRN (22:29)
[2019-02-10] MEDS: SOLU-MEDROL IV SCH ×2 (00:01→11:40)
[2019-02-10] MEDS: AZACTAM 2 GM in NS 100 ML IV SCH ×2 (01:09→09:04)
[2019-02-10] MEDS: TYLENOL PO PRN (01:57)
[2019-02-10] MEDS: DUONEB (A & A) INH SCH ×3 (03:05→10:48)
[2019-02-10 06:49] LABS: AGAP 8; BASO# 0.01 X1000 (0.0-0.2); BASO% 0.1 % (0.0-0.8); BUN 21 mg/dL (8-22); CALCIUM 8.3 mg/dL (8.8-10.2); CHLORIDE 102 mmol/L (98-107); COSMO 282; CREATININE 0.6 mg/dL (0.7-1.2); EOS# 0.04 X1000 (0.0-0.7); EOS% 0.6 % (0.0-10.0); ESTIMATED GFR > 60; GLUCOSE 153 mg/dL (70-104); HEMOGLOBIN 10.6 g/dL (14.0-18.0); IMM GRAN% 4.4 % (0.0-0.5); LYMPH# 0.47 X1000 (1.2-3.4); LYMPH% 6.9 % (20.5-51.1); MCHC 31.2 g/dL (33-37); MCV 93.2 FL (81-99); MONO# 0.23 X1000 (0.11-0.59); MONO% 3.4 % (1.7-9.3); MPV 8.7 FL (7.4-10.4); NEUT% 84.6 % (42.2-75.2); PLT 348 X1000 (130-400); POTASSIUM 4.7 mmol/L (3.5-5.1); RBC 3.65 XMIL (4.7-6.1); RDW 14.2 % (11.5-14.5); SODIUM 138 mmol/L (136-145); TCO2 28 mmol/L (25-35); WBC 6.85 X1000 (4.8-10.8)
--- NOTE | 2019-02-10 07:20 | Diag Imaging Result Doc PS360 ---
EXAM: CHEST-1 VIEW 02/10/2019 HISTORY: SOB TECHNIQUE: AP portable at 0608 COMMENT: There is a PICC line on the left with its tip in the superior vena cava. There is reticulonodular interstitial opacity throughout both lungs. This is improved slightly since the previous study of 02/09/2019. There is cardiomegaly. IMPRESSION: Slightly improved pulmonary edema. Electronically signed by Guillermo Myles 02/10/2019 7:18 AM
[2019-02-10] MEDS: SYMBICORT 160/4.5 MICROGM INHALER INH SCH (07:31)
[2019-02-10] MEDS: NICODERM PATCH TD SCH (09:02)
[2019-02-10] MEDS: BRILINTA PO SCH (09:02)
[2019-02-10] MEDS: ZYVOX PO SCH (09:02)
[2019-02-10] MEDS: ASPIRIN EC PO SCH (09:02)
[2019-02-10 11:36] VITALS: BP 155/73
--- NOTE | 2019-02-10 15:34 | INFECTIOUS DISEASE PROGRESS NO ---
DATE: 02/10/2019 PRESENT ILLNESS: Patient has bilateral pneumonia, and also there is a component of pulmonary venous congestion. He had was on cefepime, but he developed urticaria while he was on it. MEDICATIONS: This is the 6th day of treatment with Zyvox, and the patient was on cefepime, but now is on aztreonam. PHYSICAL EXAMINATION: Vital Signs: Temperature is 97.5 degrees, pulse 100 respirations 20, blood pressure is 155/73. General: This is somewhat of an ill-appearing middle-aged male. He actually looks better now that the rash has almost completely cleared that was all over him. Head, Eyes, Ears, Nose, and Throat: He can hear my spoken words and see near objects. He does not have any white patches on his tongue. Lungs: Clear to auscultation. Cardiovascular: Heart rate is regular. Abdomen: Soft and nontender. Integument: The patient's rash has almost completely cleared. Neurologic: The patient is alert. He is able to ambulate. He does not have a tremor. DIAGNOSTIC STUDIES: Chest x-ray shows improvement in both-sided infiltrates. CBC shows a white count of 6850, hemoglobin 10.6, and platelet count 348,000. Creatinine is 0.6, GFR is greater than 60. ASSESSMENT AND PLAN: The patient has bilateral pneumonia. There may be a component of pulmonary venous congestion as well. My plan is to switch the patient from his current antibiotics, and he will be sent home today on Levaquin 750 mg p.o. daily. Both Dr. Fernández and I agree with discharging the patient on oral antibiotic, and in this situation, it is going to be Levaquin 750 mg daily. I am giving the patient an appointment to come to the office in 1 week. I told him if he gets any worse, to call us right away. COMORBIDITIES: Include the followin. Chronic obstructive pulmonary disease. 2. Rheumatoid arthritis for which the patient receives treatment with immunosuppressive medication. cc: Wallace Betancourt MD
[2019-02-10] MEDS: PROTONIX IV SCH (15:47)
--- NOTE | 2019-02-10 17:40 | DISCHARGE SUMMARY ---
ADMISSION DATE: 02/01/2019 DISCHARGE DATE: 02/10/2019 ADMISSION DIAGNOSES: 1. Atypical pneumonia with shock. 2. Recent qyz-DV-[id number] myocardial infarction with percutaneous coronary intervention. 3. Rheumatoid arthritis. DISCHARGE DIAGNOSES: 1. Bilateral pneumonia. 2. Acute hypoxemic respiratory failure. 3. Chronic obstructive pulmonary disease exacerbation. 4. Adrenal insufficiency. 5. Metabolic encephalopathy, resolved. 6. Acute kidney injury, resolved. 7. Coronary artery disease with recent stenting. 8. Rheumatoid arthritis. 9. Physical deconditioning. CONSULTATIONS: 1. Dr. Berg with Pulmonary Critical Care. 2. Dr. Segura with Cardiology. 3. Dr. Mcgrath with Nephrology. 4. Dr. Betancourt with Infectious Disease. DIAGNOSTIC PROCEDURES AND FINDINGS: 1. Chest x-ray, 02/01/2019: Bilateral infiltrates suggestive of cardiogenic edema. 2. Pulmonary arteriogram, 02/01/2019: No evidence for acute PE. Increasing bilateral upper and lower peripheral interstitial infiltrates most marked within the right lower lobe where there may be honeycombing. Infectious pneumonitis is considered as is idiopathic pulmonary fibrosis. Correlate clinically. Interval decrease in mediastinal lymphadenopathy. 3. Abdomen arteriogram, 02/01/2019: Atherosclerotic changes. 4. Echocardiogram, 02/02/2019: EF 60%. Trivial valvular disease. No acute abnormalities. 5. Head CT, 02/02/2019: Suspect 9 mm left lacunar infarct of undetermined age, atrophy, or microvascular disease. 6. Chest x-ray, 02/03/2019: Development of dense bilateral infiltrates. 7. Final chest x-ray, 02/10/2019: Slight improvement pulmonary edema. HOSPITAL COURSE: Mr. Rick is a 58-year-old male who had recent coronary stent who came in with 24 hours of diarrhea, shortness of breath. He had an [place] and stent placed about a week prior to admission and he takes high dose of prednisone for rheumatoid arthritis. He is on dual- antiplatelet therapy. When he came in, he was hypotensive, and in the ER a CTA was done which showed questionable infectious pneumonitis. He did have a low-grade fever with leukocytosis, so he was admitted for sepsis with shock. Initial troponins were negative. It is also important to note that he stopped his prednisone around 3 days prior to admission,as he was slowly starting to run out of the prednisone and he did not want to completely stop it. Hydrocortisone was ordered immediately on arrival. He was admitted. Cardiology was consulted and an echocardiogram was done which did not show any obvious abnormalities. Dual-antiplatelet therapy was recommended to be continued by our health workers. However, his antihypertensives were held secondary to shock state. Over the next 3 days, his urine output started to drop, and his creatinine reached as high as 3.9, and Nephrology was asked to evaluate. They felt this was ATN secondary to hypotension and IV contrast. His IV fluids were stopped for a time. We also asked Dr. Betancourt with Infectious Disease to evaluate for his infiltrates, and he felt this was secondary to pneumonia, and antibiotics were continued. He did have a reaction to the cefepime, so aztreonam was started instead. We also consulted Dr. Berg for respiratory failure, placed the patient on BiPAP, and he agreed with management and follow daily. For his encephalopathy and abnormal head CT, we did consult Dr. Albert who felt that this acute encephalopathy was secondary to his hypotension and shock state. His neurologic status did improve significantly over time. So, essentially, with IV fluids, antibiotics, and oxygen administration as well as aggressive pulmonary toilet, the patient's symptoms slowly improved. All of the cultures that were drawn have been negative, and that includes C. diff toxin and antigen. He has 2 sets of blood cultures, 2 sets of urine cultures with no growth. His creatinine has improved to a normal level at 0.6. His vital signs are stable and he is now stable for discharge home with Home Health. DISCHARGE MEDICATIONS: 1. Ramipril 10 mg daily. 2. Arava 20 mg daily. 3. Symbicort 160/4.5 inhaled b.i.d. 4. Ventolin HFA two puffs inhaled q.2 h. as needed. 5. Prednisone 10 mg p.o. t.i.d. 6. Metoprolol tartrate 25 mg p.o. b.i.d. 7. Protonix 40 mg daily. 8. Brilinta 90 mg daily. 9. Aspirin 81 mg daily. 10. Atorvastatin 40 mg at bedtime. 11. Nicotine patch 21 mg transdermal patch daily. 12. Levaquin 750 mg p.o. daily. 13. Albuterol/ipratropium 3 mL q.4 h. as needed. DISCHARGE DIET: Heart healthy. DISCHARGE ACTIVITY: Resume activity as tolerated. DISCHARGE LABORATORY DATA: WBC 6.85, hemoglobin 10.6, hematocrit 34, platelet count 348. Sodium 138, potassium 4.7, chloride 102, CO2 of 28, anion gap 8, BUN 21, creatinine 0.6, glucose 153, calcium 8.3. DISPOSITION AND OTHER DISCHARGE INSTRUCTIONS: The patient is discharged home with Home Health. He is to follow up with Dr. Albert, Dr. Betancourt, Dr. Berg, Colton Yanez, and his PCP as directed. He is to continue all medications as directed, and return to the ER or call 911 for any worsening complaints or concerns. All questions were answered. DISCHARGE TIME: Greater than 35 minutes. Dictated by EMMANUELLE Elizabeth for Mihir Cox MD cc: EMMANUELLE Elizabeth MD Mamoun I. Najjar, MD Peter Johnson, MD Reginald D. Gladish, MD Leroy F. Harris, MD David Francis, MD
[2019-02-11] MEDS ORDERED: PROTONIX PO SCH (07:00)
== END 2019-02-10 17:09 | disposition home health service (06) | DRG 871 ==
LOC: P.ED 13:18 → SUATTDRO 13:19 → P.ICU 13:19 → ICU 02-04 06:29 → 3S 02-05 11:03 → 4N 02-09 13:57
PROVIDERS: ATTEND Internal Medicine
CPT/HCPCS: 36415; 36569; 70450; 71010; 71045; 71275; 74175; 80048; 80053; 80069; 80076; 80104; 80202; 80301; 80305; 81001; 82140; 82270; 82533; 82550; 82553; 82565; 82570; 82805; 83605; 83735; 83880; 84100; 84145; 84156; 84300; 84443; 84484; 84540; 85025; 85027; 85610; 85730; 86850; 86900; 86901; 87040; 87070; 87088; 87205; 87275; 87276; 87324; 87449; 87804; 87899; 93005; 93010; 93306; 94640; 94760; 94761; 96361; 96365; 96368; 96375; 96376; 97116; 97162; 97165; 97530; 97535; 99285; A9270; C8929; C9113; G0431; G0434; G0477; J0131; J0610; J0692; J0834; J1200; J1630; J1644; J1650; J1720; J1940; J2020; J2060; J2270; J2370; J2405; J2543; J2930; J2997; J3010; J3370; J3411; J3475; J3480; J7030; J7040; J7050; Q9957; Q9967; S0073; S0164

== ENCOUNTER 2019-10-07 23:07 | Inpatient (IN) ==
[2019-10-08] MEDS ORDERED: DUONEB (A & A) INH ONE (01:17)
[2019-10-08] MEDS ORDERED: SOLU-MEDROL IV ONE ×2 (01:19→10:57)
[2019-10-08] MEDS ORDERED: LASIX IV ONE (01:20)
[2019-10-08] MEDS ORDERED: MORPHINE IV ONE (01:20)
[2019-10-08] MEDS ORDERED: ZOFRAN IV ONE (01:20)
[2019-10-08 01:55] LABS: ALLEN TEST YES; BE -3.8 mmoll (-3.0-3.0); BLOOD TYPE ARTERIAL; HCO3-(ACT) 21.9 mmoll (20.0-26.0); O2(CT) 10.5 mL/dL (15.0-23.0); O2HB 92.8 % (95.0-99.0); PCO2(98.6) 32 mmHg (35-45); PO2(98.6) 68 mmHg (60-100); SAMPLE BLOOD; SAO2 93.5 % (95.0-100.0); pH(98.6) 7.41 (7.35-7.45)
[2019-10-08 01:57] LABS: MODALITY CANNULA
[2019-10-08 02:01] LABS: BASO# 0.01 X1000 (0.0-0.2); BASO% 0.1 % (0.0-0.8); EOS# 0.15 X1000 (0.0-0.7); HEMOGLOBIN 7.4 g/dL (14.0-18.0); IMM GRAN# 0.13 X1000 (0.0-0.04); IMM GRAN% 0.8 % (0.0-0.5); LYMPH# 0.66 X1000 (1.2-3.4); LYMPH% 4.3 % (20.5-51.1); MCH 20.6 PG (27-31); MCHC 29.6 g/dL (33-37); MCV 69.6 FL (81-99); MONO# 0.74 X1000 (0.11-0.59); MONO% 4.8 % (1.7-9.3); NEUT# 13.66 X1000 (1.4-6.5); PLT 338 X1000 (130-400); RBC 3.59 XMIL (4.7-6.1); RDW 17.9 % (11.5-14.5); WBC 15.35 X1000 (4.8-10.8)
[2019-10-08 02:34] LABS: ALB/GLOB RATIO 1.4; CALCIUM 7.8 mg/dL (8.8-10.2); POTASSIUM 4.6 mmol/L (3.5-5.1); TOTAL BILIRUBIN 0.86 mg/dL (0.20-1.00); TOTAL PROTEIN 5.2 g/dL (6.3-8.3)
[2019-10-08 02:51] LABS: CK INDEX 2.8 (0.0-2.5); CK-MB 12.45 ng/mL (0.0-5.0)
--- NOTE | 2019-10-08 02:57 | PROVIDER DOCUMENTATION ---
HPI-Respiratory General - General Chief Complaint: Shortness of Breath Stated Complaint: wheezing, back pain, sob Time Seen by Provider: 10/08/19 01:06 Source: patient Allergies/Adverse Reactions: Patient Allergies Allergy/AdvReac Type Severity Reaction Status Date / Time cefepime AdvReac HIVES Verified 10/07/19 23:24 Home Medications: Home Medication List Medication Instructions Recorded Confirmed Last Taken Type Leflunomide [Arava] 20 mg PO DAILY 11/19/16 10/07/19 11/18/16 04:00 History Atorvastatin Calcium 40 mg PO HS 02/01/19 10/07/19 Unknown History Albuterol 2.5MG/Ipratrop 0.5MG 3 ml INH Q4H PRN PRN #30 neb 02/10/19 10/07/19 Unknown Rx [Duoneb (A & A)] Terbinafine [Lamisil] 250 mg PO DAILY 06/08/19 10/07/19 Unknown History Dronedarone HCl [Multaq] 400 mg PO BID 07/23/19 10/07/19 Unknown History Albuterol Sulfate Inhaler 2 puff INH Q4H PRN PRN 08/16/19 10/07/19 Unknown History [Ventolin Hfa] Albuterol Sulfate [Ventolin Hfa] 2 puff INH Q2H PRN PRN 08/16/19 10/07/19 Unknown History Budesonide/Formoterol Fumarate 2 puff INH BID PRN 08/16/19 10/07/19 Unknown History [Symbicort 160-4.5 Mcg Inhaler] Prednisone 1 tab PO TID 08/16/19 10/07/19 Unknown History Ramipril [Altace] 10 mg PO DAILY 08/16/19 10/07/19 Unknown History Apixaban [Eliquis] 1 tab PO BID 10/06/19 10/07/19 Unknown History Hydrocodone/APAP 7.5 mg/325 mg 1 ea PO Q6H PRN PRN #14 tab 10/06/19 10/07/19 Unknown Rx [[place]-7.5] Metoprolol Tartrate 1 tab PO BID 10/06/19 10/07/19 Unknown History Pantoprazole [Protonix] 1 tab PO DAILY 10/06/19 10/07/19 Unknown History Sulfamethoxazole/Trimethoprim 1 ea PO BID #14 tab 10/06/19 10/07/19 Unknown Rx [Bactrim Ds Tablet] Ticagrelor [Brilinta] 1 tab PO BID 10/06/19 10/07/19 Unknown History - History of Present Illness-Resp Nature of Presenting Problem: <Entered By Robina Betancourt - 10/08/19 01:28 > Pt is a 59 yom who presents to the ED w/ a CC of SOB. Pt states that he has intermittent SOB for the past yr but symptoms worsen today. Pt denies any nausea, fever, or chest pain. Pt reports COPD and CHF. Pt reports a hx of heart attack. Pt reports that he was seen in ED yesterday for Left forearm abscesses. Pt states that the abscesses were lanced. Review of Systems - Adult - REVIEW OF SYSTEMS - ADULT Constitutional: reports: no symptoms reported Eyes: reports: no symptoms reported Ears, Nose, Mouth & Throat: reports: no symptoms reported Cardiovascular: reports: no symptoms reported Respiratory: reports: see HPI Gastrointestinal: reports: no symptoms reported Genitourinary: reports: no symptoms reported Musculoskeletal: reports: back pain Integumentary: reports: no symptoms reported Neurological: reports: no symptoms reported Psychiatric: reports: no symptoms reported Endocrine: reports: no symptoms reported Hematologic/Lymphatic: reports: no symptoms reported Allergic/Immunologic: reports: no symptoms reported All Other Systems: Reviewed and Negative Past History - Adult - PAST MEDICAL HISTORY-ADULT Review of Records: reports: Nursing Assessment Review, Medications Reviewed, Social history reviewed & non-contributory. Major Childhood Illnesses: reports: denies history Cardiovascular: reports: HTN. 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) Respiratory: reports: COPD, lung disease, sleep apnea Gastrointestinal: reports: denies history Genitourinary: reports: denies history Musculoskeletal: reports: arthritis Neurological: reports: denies history Psychiatric: reports: denies history Endocrine/Immune: reports: denies history Other Conditions: reports: denies history - PRIOR SURGERIES/PROCEDURES Surgical/Procedure History: reports: cholecystectomy - IMMUNIZATION STATUS Childhood Immunizations: See Nurse Assessment Flu Vaccine: See Nurse Assessment - FAMILY HISTORY Family History: reviewed, not pertinent - SOCIAL HISTORY Smoking: quit greater than 1 year Substance Use: none/never Alcohol Use Frequency: never Physical Exam-General - PHYSICAL EXAM-ADULT Initial Vital Signs Reviewed: Yes - CONSTITUTIONAL General Appearance: alert, mild distress - EYES Eyes: PERRL/EOMI - HEAD, EARS, NOSE, MOUTH & THROAT HENMT: normocephalic/atraumatic, moist mucous membranes - RESPIRATORY Respiratory: chest non-tender, respiratory distress, decreased breath sounds, rales, wheezing - CARDIOVASCULAR Cardiovascular: regular rate, rhythm, no edema - GASTROINTESTINAL (ABDOMEN) Abdominal Exam: non tender, soft - MUSCULOSKELETAL Back Exam: other (tenderness, lower back) - SKIN Integumentary: normal color, other (dry blood noted over left arm wound dressing) - NEUROLOGIC Neurologic: no motor/sensory deficits - PSYCHIATRIC Psych/Mental Status: oriented x 3 Progress - PLAN OF CARE/RESULTS Progress/Plan/Lab Results: Vital Signs - 8 hr 10/07/19 23:17 10/07/19 23:18 10/07/19 23:19 Temperature Pulse Rate 73 79 73 Respiratory Rate 24 24 Blood Pressure 97/56 O2 Sat by Pulse Oximetry 95 92 L 10/07/19 23:20 10/07/19 23:21 10/07/19 23:31 Temperature 98.5 F Pulse Rate 74 71 70 Respiratory Rate 23 21 20 Blood Pressure 112/54 112/54 O2 Sat by Pulse Oximetry 95 95 94 L 10/07/19 23:46 10/08/19 00:01 10/08/19 00:16 Temperature Pulse Rate 69 83 72 Respiratory Rate 15 23 Blood Pressure O2 Sat by Pulse Oximetry 95 90 L 10/08/19 00:31 10/08/19 00:45 10/08/19 00:46 Temperature Pulse Rate 63 70 66 Respiratory Rate 16 31 H 25 H Blood Pressure O2 Sat by Pulse Oximetry 98 93 L 10/08/19 01:01 10/08/19 01:16 10/08/19 01:31 Temperature Pulse Rate 63 Respiratory Rate 21 12 Blood Pressure O2 Sat by Pulse Oximetry 98 96 10/08/19 01:46 10/08/19 01:52 10/08/19 02:01 Temperature Pulse Rate 73 75 72 Respiratory Rate 18 12 Blood Pressure 103/53 O2 Sat by Pulse Oximetry 100 98 10/08/19 02:03 10/08/19 02:09 Temperature Pulse Rate 71 75 Respiratory Rate 15 23 Blood Pressure O2 Sat by Pulse Oximetry Laboratory Results - last 24 hr 12/13/19 12/13/19 12/13/19 01:41 01:41 01:41 WBC 15.35 H RBC 3.59 L Hgb 7.4 L Hct 25.0 L MCV 69.6 L MCH 20.6 L MCHC 29.6 L RDW Std Deviation 17.9 H Plt Count 338 MPV 9.0 Immature Gran % (Auto) 0.8 H Neut % (Auto) 89.0 H Lymph % (Auto) 4.3 L [place] % (Auto) 4.8 Eos % (Auto) 1.0 Baso % (Auto) 0.1 Immature Gran # (Auto) 0.13 H Neut # (Auto) 13.66 H Lymph # (Auto) 0.66 L [place] # (Auto) 0.74 H Eos # (Auto) 0.15 Baso # (Auto) 0.01 Specimen Type Sample Site pH pCO2 pO2 HCO3 Base Excess Oxyhemoglobin ABG O2 Sat (Calculated) ABG O2 Saturation ABG Carboxyhemoglobin ABG Methemoglobin Bill Test A-a O2 Difference Total Hemoglobin Lactate Liter Flow Blood Gas Modality FiO2 % Sodium 123 L Potassium 4.6 Chloride 86 L Carbon Dioxide 20 L Anion Gap 17 BUN 31 H D Creatinine 3.0 H Estimated GFR/1.73 m2 22 BUN/Creatinine Ratio 10 Glucose 116 H Calculated Osmolality 255 Calcium 7.8 L Total Bilirubin 0.86 AST 36 H ALT 27 Alkaline Phosphatase 133 H Creatine Kinase 451 H Creatine Kinase Index 2.8 H CK-MB (CK-2) 12.45 H Troponin T < 0.010 Wsm-A-Ckngwmeuznb Pept Total Protein 5.2 L Albumin 3.0 L Globulin 2.2 Albumin/Globulin Ratio 1.4 10/08/19 10/08/19 01:41 01:46 WBC RBC Hgb Hct MCV MCH MCHC RDW Std Deviation Plt Count MPV Immature Gran % (Auto) Neut % (Auto) Lymph % (Auto) [place] % (Auto) Eos % (Auto) Baso % (Auto) Immature Gran # (Auto) Neut # (Auto) Lymph # (Auto) [place] # (Auto) Eos # (Auto) Baso # (Auto) Specimen Type ARTERIAL Sample Site R RADIAL pH 7.41 pCO2 32 L pO2 68 HCO3 21.9 Base Excess -3.8 L Oxyhemoglobin 92.8 L ABG O2 Sat (Calculated) 10.5 L ABG O2 Saturation 93.5 L ABG Carboxyhemoglobin 0.80 ABG Methemoglobin 0.0 Bill Test YES A-a O2 Difference 149.0 Total Hemoglobin 8.0 L Lactate 2.50 H Liter Flow 4.0 Blood Gas Modality CANNULA FiO2 % 36.0 Sodium Potassium Chloride Carbon Dioxide Anion Gap BUN Creatinine Estimated GFR/1.73 m2 BUN/Creatinine Ratio Glucose Calculated Osmolality Calcium Total Bilirubin AST ALT Alkaline Phosphatase Creatine Kinase Creatine Kinase Index CK-MB (CK-2) Troponin T Thv-A-Kapoxlksptj Pept 446 H Total Protein Albumin Globulin Albumin/Globulin Ratio Orders Category Date Time Status Nursing- Obtain EKG ONCE Care 10/08/19 00:47 Active Saline Loc NOW Care 10/08/19 01:17 Active CHEST-1 VIEW [RAD] Stat Exams 10/08/19 01:17 Taken ABG [RESP] Routine Lab 10/08/19 01:46 Completed BNP [PRO B-NATRIURETIC PEPTIDE] Stat Lab 10/08/19 01:41 Completed CBC WITH DIFF [HEME] Stat Lab 10/08/19 01:41 Completed CK PROFILE [SP CHEM] Stat Lab 10/08/19 01:41 Completed COMPREHENSIVE METABOLIC PANEL [CHEM] Stat Lab 10/08/19 01:41 Completed TROPONIN T Stat Lab 10/08/19 01:41 Completed WOUND CULTURE INC GRAM STAIN [RM] Stat Lab 10/08/19 02:55 Uncollected Albuterol 2.5MG/Ipratrop 0.5MG [Duoneb (A & A)] Med 10/08/19 01:17 Disc ontinued 3 ml INH NOW ONE Furosemide [Lasix] Med 10/08/19 01:20 Discontinued 40 mg IV NOW ONE Methylprednisolone Sod Succ [Solu-Medrol] Med 10/08/19 01:19 Discontinued 125 mg IV NOW ONE Morphine Med 10/08/19 01:20 Discontinued 4 mg IV NOW ONE Ns 1000 ml IV Bolus X1 Med 10/08/19 03:08 Ordered 0.9% Sodium Chloride Inj [Ns] 1,000 ml IV 999 mls/hr Ondansetron [Zofran] Med 10/08/19 01:20 Discontinued 4 mg IV NOW ONE Aerosol Treatments Routine Oth 10/08/19 01:19 Completed Aerosol Treatments Stat Oth 10/08/19 01:19 Completed Pulse Oximetry Stat Oth 10/08/19 01:17 Active Result Diagrams: 10/08/19 01:41 12/13/19 01:41 - CONSULTS/PCP/HOSPITALIST Notification #1 *Consult/PCP/Hospitalist*: Dr. Chavez Time Discussed: 03:10 Consult Disposition: Admit (accepts admission) Departure - Departure Date of Disposition Decision: 10/08/19 Time of Disposition Decision: 03:09 DIAGNOSIS: COPD exacerbation, Hyponatremia, Renal insufficiency Disposition: ADMITTED INPATIENT 09 Certified Medical Emergency: Emergent Condition: Fair Referrals and Follow-Ups: Josiah Underwood MD [Primary Care Provider] - - Critical Care Note This patient required my direct & personal management of CC.: No Attestation - Physician/ XAVIER Attestation Patient care was provided by Advanced Practice Provider:: No The physician spent face to face time with patient:: Yes Advanced Practice Provider documentation review:: Supervising physician onsite and consulted in the evaluation and care of this patient. The physician did have a face to face encounter with the patient.
[2019-10-08] MEDS ORDERED: NS 1,000 ML IV ONE (03:08)
--- NOTE | 2019-10-08 06:17 | Diag Imaging Result Doc PS360 ---
EXAM: CHEST-1 VIEW HISTORY: sob TECHNIQUE: Single view COMPARISON: 02/17/2019 FINDINGS: The lungs are well expanded. The heart is enlarged. There are increased interstitial markings throughout both lungs. No consolidation. No pleural effusions identified. IMPRESSION: Cardiomegaly with recurrent pulmonary edema or fibrosis Electronically signed by Jules Lucas 10/08/2019 6:14 AM
[2019-10-08 06:58] LABS: URINE SOURCE CLEAN CATCH
[2019-10-08 07:06] LABS: BILIRUBIN URINE NEGATIVE (NEGATIVE); BLOOD URINE NEGATIVE (NEGATIVE); COLOR STRAW; GLUCOSE URINE NEGATIVE (NEGATIVE); KETONE URINE NEGATIVE (NEGATIVE); LEUKOCYTES URINE NEGATIVE (NEGATIVE); NITRITE URINE NEGATIVE (NEGATIVE); PROTEIN URINE NEGATIVE (NEGATIVE); SP GRAVITY URINE 1.006; TURBIDITY URINE CLEAR (CLEAR); UROBILINOGEN URINE NORMAL (NORMAL)
[2019-10-08 07:07] LABS: UR EPITHELIAL CELLS <10 /HPF (<10); URINE BACTERIA NEGATIVE /HPF; URINE RBC <10 /HPF (<10); URINE WBC <10 /HPF (<10)
--- NOTE | 2019-10-08 07:14 | EKG Report ---
Test Performed on : 10/08/2019 00:45:05 AM Test Reason : SOB Blood Pressure : / mmHG Vent. Rate : 062 BPM Atrial Rate : 062 BPM P-R Int : 174 ms QRS Dur : 100 ms QT Int : 436 ms P-R-T Axes : 099 -33 024 degrees QTc Int : 442 ms Normal sinus rhythm. Left axis deviation Incomplete right bundle branch block Nonspecific ST abnormality Abnormal ECG When compared with ECG of 18-JUN-2019 11:11, Sinus rhythm. has replaced Atrial fibrillation. Vent. rate has decreased BY 49 BPM Incomplete right bundle branch block has replaced Right bundle branch block Unconfirmed Result
[2019-10-08 07:41] LABS: INR 1.53; PROTIME 18.7 Seconds (11.0-16.0)
[2019-10-08 07:42] LABS: PTT 40.5 Seconds (22.3-41.8)
[2019-10-08 07:59] LABS: CK-MB 11.47 ng/mL (0.0-5.0)
[2019-10-08] MEDS ORDERED: AZACTAM 2 GM in NS 100 ML IV ONE (09:42)
--- NOTE | 2019-10-08 09:49 | Diag Imaging Result Doc PS360 ---
EXAM: CT THORAX W/O CONTRAST 10/08/2019 HISTORY: ? edema vs fibrosis TECHNIQUE: This exam was performed using automated exposure control, adjustment of mA or kV according to patient size, and/or use of iterative reconstruction technique. COMMENT: The blood pool CT density is less than 32 Hounsfield units which may be indicative of anemia. There are granulomatous calcifications in the subcarina and left hilum. There are extensive coronary calcifications. There are no abnormal fluid collections. The regional skeleton is intact. There is some apparent honeycombing in the right lower lobe and to a lesser extent in the left lower lobe and both upper lobes. This is worse than on the previous study of 11/20/2016. The groundglass opacities which were present at that time are no longer present. IMPRESSION: 1. Anemia. 2. Pulmonary fibrosis with a UIP pattern. Electronically signed by Guillermo Myles 10/08/2019 9:47 AM
[2019-10-08 10:19] LABS: IRON SATURATION 4 %; TIBC 298 ug/dL; TOTAL IRON 13 ug/dL (53-167); UNBOUND IRON 285 ug/dL (112-346)
[2019-10-08] MEDS: ZYVOX 600 MG/D5W 600 MG/300 ML IVPB IV SCH ×2 (10:23→20:58)
[2019-10-08 10:25] LABS: AGAP 21; BUN 31 mg/dL (8-22); CALCIUM 8.3 mg/dL (8.8-10.2); CHLORIDE 93 mmol/L (98-107); COSMO 278; CREATININE 2.5 mg/dL (0.7-1.2); GLUCOSE 192 mg/dL (70-104); POTASSIUM 4.5 mmol/L (3.5-5.1); SODIUM 133 mmol/L (136-145); TCO2 19 mmol/L (25-35)
[2019-10-08] MEDS ORDERED: DUONEB (A & A) INH PRN (10:55)
[2019-10-08] MEDS ORDERED: 1/2 NS 1,000 ML IV SCH (11:00)
[2019-10-08] MEDS: DUONEB (A & A) INH SCH ×4 (11:59→23:14)
[2019-10-08 15:52] LABS: CALCIUM 8.3 mg/dL (8.8-10.2); CREATININE 1.8 mg/dL (0.7-1.2); POTASSIUM 4.1 mmol/L (3.5-5.1)
[2019-10-08] MEDS: NORCO-7.5 PO PRN ×2 (15:53→22:17)
[2019-10-08] MEDS ORDERED: NS 1,000 ML IV SCH (16:30)
--- NOTE | 2019-10-08 18:02 | Diag Imaging Result Doc PS360 ---
EXAM: US RENAL 2 (RETROPER) COMPLETE 10/08/2019 HISTORY: decreased renal function TECHNIQUE: Renal ultrasound COMMENT: The kidneys are without evidence of hydronephrosis or mass. The right kidney is 12 x 6.6 x 5.9 cm the left is 14.1 x 6.5 x 5.5 cm. The bladder is not distended and has a volume of approximately 57 mL. IMPRESSION: No evidence of obstructive uropathy. Electronically signed by Guillermo Myles 10/08/2019 6:00 PM
[2019-10-08 20:21] LABS: CALCIUM 8.2 mg/dL (8.8-10.2); CREATININE 1.8 mg/dL (0.7-1.2); POTASSIUM 3.8 mmol/L (3.5-5.1)
[2019-10-08] MEDS: LOPRESSOR PO SCH (20:57)
[2019-10-08] MEDS: MULTAQ PO SCH (20:57)
[2019-10-08] MEDS: SOLU-MEDROL IV SCH (20:57)
[2019-10-08] MEDS: AZACTAM 1 GM in NS 50 ML IV SCH (20:58)
[2019-10-08] MEDS: HUMALOG SUBQ SCH (20:59)
[2019-10-08] MEDS ORDERED: HUMALOG SUBQ SCH (21:00)
--- NOTE | 2019-10-08 21:07 | GENERAL SURGERY CONSULTATION ---
DATE: 10/08/2019 REFERRING PHYSICIAN: Dr. Ahumada. SURGEON CONSULTED: Angelo Williamson. REASON FOR CONSULTATION: Left forearm abscess. HISTORY OF PRESENT ILLNESS: This is a 59-year-old male who fell 4 months ago and hurt his forearm. He reports swelling, bruising and hematoma that has been very tender ever since. He then began having worsening swelling 2 weeks ago of his forearm, it is very tender to palpation. His back doctor saw him and recommended he go to the emergency room to get it taken care of. He did this 2 days ago and underwent a CT scan of the arm which showed a complex peripherally enhancing fluid collection in the forearm measuring 3 x 5 x 7 cm in the subcutaneous tissues and may extend into the adjacent muscles. There is no air within the fluid collection. There is also subcutaneous edema and inflammation. He underwent incision and drainage in the ER with reports of copious amount of purulent drainage. Since then he felt the pressure in his arm had improved and he was having less pain. He was sent home with packing in place with instructions to follow up in the ER today to replace the packing. However, he came to the ER today primarily because of a new onset of chest pain and shortness of breath. He said he felt like he was having a heart attack. Apparently workup in the ER was negative for acute coronary disease but his arm remains swollen, red, and fluctuant and I was asked to assess his arm. He was found to have a white blood cell count 15,000 but was hemodynamically stable. PAST MEDICAL HISTORY: Coronary artery disease status post stents, history of heart attack, COPD, asthma, he is on oxygen 2 L at home, hypertension, morbid obesity. PAST SURGICAL HISTORY: Cholecystectomy. ALLERGIES: Cefepime. HOME MEDICATIONS: Leflunomide, atorvastatin, AA nebs, Lamisil, Multaq, Ventolin inhaler, Symbicort inhaler, prednisone, ramipril, Eliquis, hydrocodone, metoprolol, Protonix, Bactrim, Brilinta. FAMILY HISTORY: Reviewed and noncontributory. SOCIAL HISTORY: He quit smoking over a year ago. He denies alcohol or other illicit drug use. REVIEW OF SYSTEMS: Ten systems reviewed and negative except as noted above. PHYSICAL EXAMINATION: Vital Signs: Temperature 98.2, pulse 82, respirations 18, blood pressure 109/57, O2 saturation 95%. General: Chronically ill-appearing male who looks his stated age. HEENT: Normocephalic, atraumatic. Extraocular muscles intact. Pupils equal, round, reactive to light. Sclerae anicteric. Neck: Supple. No thyromegaly. CV: Regular rate and rhythm. Respiratory: Coarse bilateral breath sounds with wheezing. GI: Obese, soft, nontender, nondistended. No organomegaly. No hernias. Extremities: No clubbing or cyanosis. His left forearm, however, is swollen with some mild redness. There is some fluctuance along the ulnar aspect. It does appear to be draining out of his incision site. I do not detect any crepitus. It does track with a Q-Tip approximately 3 to 4 cm in a couple directions. Musculoskeletal: Moves all extremities equally and well. Skin: Warm and dry. No rash. LABORATORY: White blood cell count 15,000, hemoglobin 7.4, hematocrit 25. Sodium 133, potassium 4.5, chloride 93, CO2 19, BUN 31, creatinine 2.5, glucose 192, CK-MB 11.47, CK 386, troponin normal. IMAGING: As described above in HPI. ASSESSMENT AND PLAN: A 59-year-old male with chronic pulmonary disease and coronary artery disease with what now appears to be a infected hematoma of his left forearm. He is status post incision and drainage with some relief. His primary complaint today was chest pain and shortness of breath. At this point, I think the arm is draining and has improved. We will continue antibiotics and observation. He may require further drainage in the operating room which we will determine over the next day or 2 during this hospitalization. In light of that, I will hold his blood thinners. cc: Angelo Williamson MD
[2019-10-08 22:44] LABS: CALCIUM 8.3 mg/dL (8.8-10.2); CREATININE 1.6 mg/dL (0.7-1.2); POTASSIUM 3.9 mmol/L (3.5-5.1)
--- NOTE | 2019-10-08 22:54 | HISTORY AND PHYSICAL ---
CHIEF COMPLAINT: Shortness of breath, wheezing, left arm infection. HISTORY OF PRESENT ILLNESS: This is a 59-year-old gentleman with a prior history of COPD, on home O2, hypertension, rheumatoid arthritis, BPH. He presents to the emergency room complaining of shortness of breath that has increased over the last 24 hours, as well as left forearm pain. The patient does have a history of COPD. He is on home O2 at 2 L. He states that he has chronic shortness of breath, although over the last 24 to 36 hours, it has become progressively worse. He reached 90-degree orthopnea and felt he needed to come in for evaluation. He denied any chest pain or palpitations. Mr. Rick was in the emergency room on October 06, for a left arm abscess which measured 3 x 5 x [address] scan, with the read being a multilobulated, peripherally enhancing complex fluid collection in the forearm in the subcutaneous tissues and extends into the muscles. He underwent an I D. The wound was packed and he was discharged home on Bactrim. At this time, he did have a white count of 11.9, creatinine was 0.8. On return to the ER today, he had a sodium of 123, with a creatinine of 3. He received a liter of IV fluids, followed by 40 mg of Lasix while in the emergency room. PAST MEDICAL HISTORY: 1. COPD, on home O2. 2. Atrial fibrillation, on chronic anticoagulation with Eliquis. 3. Adrenal insufficiency. 4. Coronary artery disease with stenting. 5. Rheumatoid arthritis. 6. Hypertension. PAST SURGICAL HISTORY: Cholecystectomy. SOCIAL HISTORY: He smokes a pack a day. He has for about 40 years. He stopped drinking alcohol in January. Prior to that, he drank a case of beer about every 2 to 3 days. He denies any illicit drug use. He is and lives with his . ALLERGIES: Cefepime which causes hives. HOME MEDICATIONS: A list will be obtained by the nursing staff and once verified, we will review and restart as is appropriate. FAMILY HISTORY: Positive for hypertension. His father had TB and colon cancer. REVIEW OF SYSTEMS: Discussed with the patient with pertinent positives stated in the HPI. He denied any syncope or dizziness, chest pain, palpitations, a productive cough, any fevers or chills, night sweats, any nausea, vomiting, diarrhea, constipation, black or bloody vomitus or stools, any hematuria, dysuria, frequency, urgency. PHYSICAL EXAMINATION: GENERAL: This is a 59-year-old gentleman who is lying on the stretcher in the emergency room in no distress. VITAL SIGNS: Blood pressure is 118/58, with heart rate of 69, respirations are 20, temperature is 98.5 degrees with O2 saturations 94 to 95 percent on 2 L nasal cannula. EYES: Pupils equal, round, react to light. EOMs are intact. Sclerae anicteric. HEENT: Head is normocephalic, atraumatic. Mucous membranes are moist. NECK: Supple with trachea midline. CARDIOVASCULAR: Regular rate and rhythm. S1 and S2 are appreciated. Calves are nontender bilaterally with peripheral pulses palpable x4 extremities. PULMONARY: Breath sounds are decreased throughout with expiratory wheezes noted. Chest rise and fall symmetric to respiration. Chest wall is nontender to palpation. GASTROINTESTINAL: Abdomen is soft, nontender, nondistended. Bowel sounds in all 4 quadrants. NEUROLOGIC: He is alert and oriented x3. SKIN: Warm and dry, with an area to his outer left forearm with approximately a 1-inch opening status post an I D on the . It does drain dark red bloody drainage along with purulent drainage. Fluctuance can be felt to the plantar aspect of his arm that is probably about a 4-inch long area. LABORATORY AND DIAGNOSTIC DATA: WBC is 15.3, with hemoglobin 7.4, hematocrit 25, and platelets 338,000. Sodium is 123, potassium 4.6, BUN 31, creatinine 3, with a glucose of 116. Cardiac profile, blood cultures, and wound culture are pending. Chest x-ray revealed cardiomegaly with recurrent pulmonary edema or fibrosis. ASSESSMENT AND PLAN: 1. Chronic obstructive pulmonary disease, acute exacerbation. continue with supplemental oxygen, DuoNeb q.4 hours with q.2 hours p.r.n., with steroids. 2. Abscess of left forearm. Culture has been obtained. antibiotic coverage of Zyvox and Azactam renal dosed, and further antibiotics will be culture driven. Surgery consult. 3. Leukocytosis secondary to #2. Antibiotics as stated above. 4. Acute kidney injury. Likely secondary to dehydration, Vancomycin and Bactrim. trend labs, hold any renal toxic medications,and renal dose medications as appropriate. 5. Hyponatremia. recheck labs now stat and q.4 hours, and treat appropriately. 6. History of hypertension. We will trend vital signs and restart medications as appropriate. 7. Pulmonary edema versus pulmonary fibrosis per chest x-ray. obtain a CT scan of the chest for definitive answer and treat accordingly. 8. Anemia. The patient's hemoglobin and hematocrit has declined somewhat. Looking back since January, he was 9.8, on October 06 8.4, and today 7.4. The patient states that during this time, he was started on Brilinta and started on Eliquis in May. We will be holding these pending possible surgery. check iron studies and hemoccult. 9. History of atrial fibrillation. continue his Multaq and hold anticoagulation as 10. History of coronary artery disease, status post percutaneous coronary intervention. It looks like this was back in January 2019, for which he was placed on Brilinta. 11. Adrenal insufficiency. stress dose of steroids. 12. The patient was evaluated and plan was discussed with Dr. Ahumada. Further treatments pending hospital course. 13. Dr. Angelo Williamson and Dr. Mcgrath will be consulted. Dictated by EMMANUELLE Buck for Gustavo Ahumada MD cc: EMMANUELLE Buck Agree with the above. the following is my own face to face assessment. patient came in with chest pain dyspnea and concern for sepsis. likely mild copd exacerbation but little to no wheezing by the time I saw him. left arm which had I and D in the ED a couple days ago. heavily indurated on exam, draining seropurulent material, likely the source of his white count. will give some steroids for both copd exacerbation and for stress dose for his chronic adrenal insufficiency. surgery on board and going to watch what he does on IV antibiotics but strong possibility that he will need surgery for the large abscess in his left forearm. chest CT shows interstitial pulmonary fibrosis but no evidence of pneumonia. LLOYDD
--- NOTE | 2019-10-08 23:22 | NEPHROLOGY CONSULTATION ---
DATE: 10/08/2019 REASON FOR CONSULTATION: Acute kidney injury. HISTORY OF PRESENT ILLNESS: Mr. Rick is a 59-year-old white male with history of obesity, COPD, hyperlipidemia, hypertension. He had trauma to his left arm several weeks to months ago and had a worsening region of swelling, tenderness and fluctuance on the lateral aspect of the left arm. No chills, fever, sweats, night sweats. Appetite was normal. Symptoms worsening in severity prompted him to come to the emergency room on the . He underwent a CT with contrast and was diagnosed with an abscess. This was treated with incision and drainage and packing in the emergency room, and he was treated with Bactrim DS b.i.d. Creatinine at that time was 0.8. He was instructed to come back to the emergency room two days later to have his packing changed. In the meantime, he began having difficulty with shortness of breath as well. His evaluation in the emergency room today found his blood pressure 97/56 with heart rate of 73. He underwent CT of the chest without contrast, which disclosed evidence of pulmonary fibrosis and anemia. Laboratory data found creatinine 3.0. He was not hyperkalemic. Serum bicarbonate was 20. He has been treated with IV fluids 1 L, but his urine output has been greater than his intake. In this context, his urine output has been excellent over 2.5 L, and his creatinine has improved from 3 to 2.5. He is not aware of any kidney disease previously and again renal function was normal. PAST MEDICAL HISTORY: As above. HOME MEDICATIONS: Include leflunomide, atorvastatin, albuterol, ipratropium, terbinafine, Multaq, Symbicort, ramipril, prednisone, apixaban, metoprolol, pantoprazole, ticagrelor, Bactrim, hydrocodone. ALLERGIES: Cefepime. SOCIAL HISTORY: Former smoker. None currently. FAMILY HISTORY: Otherwise noncontributory. REVIEW OF SYSTEMS: Otherwise noncontributory. PHYSICAL EXAMINATION: Vital Signs: Blood pressure 118/58, heart rate 94, respirations 22, afebrile. General: Obese, white male lying on his left side, no acute distress. Skin: Warm and dry. Left forearm is dressed, and there is coagulated blood on the dorsum of the hand and wrist. Pupils are equal. Conjunctivae are pink. Oropharynx is clear moist. Neck: Supple. Trachea is midline. Neck vein not distended. Heart: Regular. Heart: PMI not palpable. Lungs: Equal. Abdomen: Obese, soft, nontender. No organomegaly. Extremities: No significant edema. No clubbing or cyanosis. Neurologic exam: Nonfocal. IMPRESSION: Acute kidney injury. Most likely, acute tubular necrosis secondary to contrast. Creatinine is improving, and he has excellent urine output. His problem was complicated by hyponatremia, but this is improved with IV fluids as well. We will perform renal ultrasound for completeness. I agree with stopping his Bactrim and holding his STEVEN inhibitor. Repeat labs in the morning. cc: Jeff Mcgrath MD
[2019-10-09] MEDS: AZACTAM 1 GM in NS 50 ML IV SCH ×2 (01:46→11:20)
[2019-10-09] MEDS: DUONEB (A & A) INH SCH ×6 (03:49→23:32)
[2019-10-09] MEDS: HUMALOG SUBQ SCH ×4 (06:33→23:02)
[2019-10-09] MEDS: NORCO-7.5 PO PRN ×3 (06:37→20:14)
[2019-10-09 07:19] LABS: EOS# 0.01 X1000 (0.0-0.7); EOS% 0.1 % (0.0-10.0); HEMOGLOBIN 6.3 g/dL (14.0-18.0); IMM GRAN# 0.09 X1000 (0.0-0.04); IMM GRAN% 0.6 % (0.0-0.5); LYMPH# 0.21 X1000 (1.2-3.4); LYMPH% 1.3 % (20.5-51.1); MCH 20.6 PG (27-31); MCHC 28.6 g/dL (33-37); MCV 71.9 FL (81-99); MONO% 5.1 % (1.7-9.3); MPV 9.3 FL (7.4-10.4); NEUT# 14.69 X1000 (1.4-6.5); NEUT% 92.9 % (42.2-75.2); PLT 356 X1000 (130-400); RBC 3.06 XMIL (4.7-6.1); RDW 18.1 % (11.5-14.5)
[2019-10-09 07:32] LABS: ALBUMIN 3.2 g/dL (3.5-5.0); CALCIUM 8.2 mg/dL (8.8-10.2); CREATININE 1.3 mg/dL (0.7-1.2); PHOSPHORUS 2.1 mg/dL (2.7-4.5)
[2019-10-09 07:58] LABS: HEMOGLOBIN A1C 5.3 % (4.8-6.0)
[2019-10-09 08:19] LABS: SEGS 96 % (42-75)
[2019-10-09] MEDS: MULTAQ PO SCH ×2 (09:17→20:14)
[2019-10-09] MEDS: SOLU-MEDROL IV SCH (09:17)
[2019-10-09] MEDS: LOPRESSOR PO SCH ×2 (09:17→20:14)
[2019-10-09] MEDS: ZYVOX 600 MG/D5W 600 MG/300 ML IVPB IV SCH ×2 (09:22→23:00)
[2019-10-09] MEDS ORDERED: LANTUS INSULIN SUBQ ONE (15:38)
[2019-10-10] MEDS: DUONEB (A & A) INH SCH ×6 (03:10→23:30)
--- NOTE | 2019-10-10 03:43 | PROGRESS NOTE ---
DATE: 10/09/2019 SUBJECTIVE: Today Mr. Rick refers to be doing well. He said his shortness of breath has completely resolved. Denies any new complaints. OBJECTIVE: Vital signs: Blood pressure is 124/53, pulse of 85, respirations 20, temperature 98.2 degrees. General: Mr. Rick 59-year-old gentleman, morbidly obese. He is in bed, no distress. HEENT: Mucosa is pink and moist. Anicteric. Acyanotic. Neck: Supple but short. Chest: Good air entry bilaterally. There was no crepitations. No rhonchi. Cardiovascular: Regular rate and rhythm. Gastrointestinal: Soft, distended but nontender. Bowel sounds present. Extremities: No pedal edema. DIRECTOR TECHNICAL: Patient is awake, alert, and oriented. LABORATORY DATA: WBC is 15.80, hemoglobin is 6.3, platelet count of 256,000. Chemistry is also reviewed, sodium is 134, potassium 4.0, chloride 95, bicarb is 22, creatinine is down to 1.3. Glucose is also slightly elevated. ASSESSMENT: 1. Acute on chronic hypoxemic respiratory failure on presentation. Improved. 2. History of chronic obstructive pulmonary disease on home oxygen, in mild exacerbation on admission. 3. History of atrial fibrillation, on chronic Eliquis anticoagulation. 4. History of coronary artery disease status post stent to the LAD. 5. Left arm abscess with skin with surrounding cellulitis. Culture is growing methicillin- resistant Staphylococcus aureus. We will continue with the Zyvox. I have discontinued the aztreonam. 6. Pulmonary fibrosis with usual interstitial pneumonitis pattern on CT scan noted, probably related to the history of rheumatoid arthritis. 7. Uncontrolled hyperglycemia, most likely due to the steroids. We will control with insulin regimen. Patient is diabetic, but his A1c is 5.3. 8. Morbidly obese with a history of obstructive sleep apnea. Noted. cc: Aron Marquez MD
--- NOTE | 2019-10-10 03:47 | GENERAL SURGERY PROGRESS NOTE ---
DATE: 10/09/2019 SUBJECTIVE: The patient says his arm feels good, it is not hurting like it was and he is breathing better. OBJECTIVE: Vital signs: He is afebrile. Vital signs are stable. General: He is awake, alert, oriented, oriented x3. No acute distress. Extremities: The left arm is examined. There is some bloody drainage. No clyde pus. It is indurated, swollen, red and tender, but not fluctuant. LABORATORY: White cell count 15.8, hemoglobin 6.3, hematocrit 22. ASSESSMENT/PLAN: A 59-year-old male with left forearm infected hematoma, status post incision and drainage. He is anemic. We will transfuse 1 unit of blood. His COPD appears to be improved. I did repack the wound today. cc: Angelo Williamson MD
[2019-10-10] MEDS: HUMALOG SUBQ SCH ×4 (06:52→22:47)
[2019-10-10 07:13] LABS: BASO# 0.01 X1000 (0.0-0.2); BASO% 0.1 % (0.0-0.8); EOS# 0.03 X1000 (0.0-0.7); EOS% 0.2 % (0.0-10.0); HEMATOCRIT 24.7 % (42.0-52.0); IMM GRAN# 0.09 X1000 (0.0-0.04); IMM GRAN% 0.7 % (0.0-0.5); LYMPH# 0.56 X1000 (1.2-3.4); LYMPH% 4.1 % (20.5-51.1); MCH 21.1 PG (27-31); MCHC 28.3 g/dL (33-37); MCV 74.4 FL (81-99); MONO% 6.6 % (1.7-9.3); MPV 9.3 FL (7.4-10.4); NEUT# 11.95 X1000 (1.4-6.5); NEUT% 88.3 % (42.2-75.2); PLT 356 X1000 (130-400); RBC 3.32 XMIL (4.7-6.1); RDW 18.7 % (11.5-14.5); WBC 13.54 X1000 (4.8-10.8)
[2019-10-10 07:54] LABS: AGAP 14; BUN 17 mg/dL (8-22); CALCIUM 8.6 mg/dL (8.8-10.2); CHLORIDE 100 mmol/L (98-107); COSMO 279; ESTIMATED GFR > 60; GLUCOSE 134 mg/dL (70-104); PHOSPHORUS 2.3 mg/dL (2.7-4.5); POTASSIUM 4.9 mmol/L (3.5-5.1); SODIUM 138 mmol/L (136-145); TCO2 24 mmol/L (25-35)
[2019-10-10] MEDS: LANTUS INSULIN SUBQ SCH (08:25)
[2019-10-10] MEDS: LOPRESSOR PO SCH ×2 (08:26→22:40)
[2019-10-10] MEDS: PREDNISONE PO SCH (08:26)
[2019-10-10] MEDS: NORCO-7.5 PO PRN ×2 (08:26→22:54)
[2019-10-10] MEDS: MULTAQ PO SCH ×2 (08:26→22:54)
[2019-10-10] MEDS: ZYVOX 600 MG/D5W 600 MG/300 ML IVPB IV SCH ×2 (10:45→22:39)
--- NOTE | 2019-10-10 16:00 | GENERAL SURGERY PROGRESS NOTE ---
DATE: 10/10/2019 SUBJECTIVE: The patient is feeling okay. He denies chest pain or shortness of breath. His says his arm is not bothering him too much. OBJECTIVE: He is afebrile. Vital signs are stable.General: He is awake, alert, oriented x3. No acute distress. Extremities: The left arm was examined. There remains some swelling and mild induration but no fluctuance. I removed the packing. I do not see any clyde pus, just bloody drainage. I did repack it. LABORATORY: White cell count 13.5, hemoglobin 7, hematocrit 24.7. ASSESSMENT AND PLAN: A 59-year-old male with left forearm infected hematoma status post incision and drainage. It appears to be slowly improving. We will continue the antibiotics. I will re- examine the arm tomorrow. I do not plan on repacking it any more. He is on Zyvox for Methicillin resistant staphylococcus aureus. I think if his arm is doing okay tomorrow, I would be okay with discharge home and follow up with us as an outpatient. cc: Angelo Williamson MD
[2019-10-10] MEDS ORDERED: VENOFER 300 MG in NS 150 ML IV ONE (16:33)
--- NOTE | 2019-10-10 18:54 | PROGRESS NOTE ---
DATE: 10/10/2019 SUBJECTIVE: This morning Mr. Rick refers to be doing fairly okay. Denies any new complaints. He has been already been seen by surgery. The wound has been repacked. OBJECTIVE: Vital signs: Blood pressure is 132/64, pulse of 72, respirations 18, temperature 97.9 degrees. General: Mr. Rick is a 59-year-old gentleman. He is in bed morbidly obese. He is not in any distress. HEENT: Mucosa is pink and moist. Anicteric. Acyanotic. Neck: Supple. Chest: Good air entry bilaterally. There was no crepitations, no rhonchi. Cardiovascular: Regular rate and rhythm. No murmurs, no rubs, no gallops. GI: Abdomen is soft, nontender. Bowel sounds present. Extremities: No pedal edema. DOUBLE BOTTOM DRIVER: Patient is awake, alert, and oriented. The patient has sterile dressing on the left upper extremity. ASSESSMENT: 1. Acute on chronic hypoxemic respiratory failure on presentation. Improved. 2. History of chronic obstructive pulmonary disease on home O2 oxygen. 3. Atrial fibrillation, currently rate controlled. Patient is on Eliquis for anticoagulation. 4. History of coronary artery disease status post stent to the left anterior descending. He is currently asymptomatic. 5. Left arm abscess with skin surrounding cellulitis. Culture grown methicillin-resistant Staphylococcus aureus. The patient is currently on Zyvox. 6. History of pulmonary fibrosis with usual interstitial pneumonitis pattern on CT scan. 7. History of rheumatoid arthritis. 8. Morbid obesity. 9. History of obstructive sleep apnea. 10. Microcytic anemia. The patient is status post 1 packed red blood cells transfusion. Hemoglobin and hematocrit went up to 7 this morning. 11. Iron deficiency. We will give the patient a Venofer infusion today and recheck on his hemoglobin and hematocrit tomorrow morning. cc: Aron Marquez MD
[2019-10-11] MEDS: DUONEB (A & A) INH SCH ×6 (03:30→23:08)
[2019-10-11] MEDS: HUMALOG SUBQ SCH ×4 (06:26→22:23)
[2019-10-11 07:06] LABS: AGAP 10; ALBUMIN 3.1 g/dL (3.5-5.0); BUN 15 mg/dL (8-22); CALCIUM 8.3 mg/dL (8.8-10.2); CHLORIDE 103 mmol/L (98-107); COSMO 280; ESTIMATED GFR > 60; GLUCOSE 87 mg/dL (70-104); PHOSPHORUS 2.6 mg/dL (2.7-4.5); POTASSIUM 4.5 mmol/L (3.5-5.1); SODIUM 140 mmol/L (136-145); TCO2 27 mmol/L (25-35)
[2019-10-11] MEDS ORDERED: SODIUM CHLORIDE 0.9% INJ SCH (09:30)
[2019-10-11] MEDS ORDERED: GOLYTELY PO ONE (09:46)
[2019-10-11] MEDS: MULTAQ PO SCH ×2 (10:20→20:40)
[2019-10-11] MEDS: LANTUS INSULIN SUBQ SCH (10:20)
[2019-10-11] MEDS: PREDNISONE PO SCH (10:21)
[2019-10-11] MEDS: LOPRESSOR PO SCH ×2 (10:21→20:40)
[2019-10-11] MEDS: PROTONIX IV SCH (10:21)
[2019-10-11] MEDS: ZYVOX 600 MG/D5W 600 MG/300 ML IVPB IV SCH ×2 (10:21→20:46)
--- NOTE | 2019-10-11 11:56 | GASTROENTEROLOGY CONSULTATION ---
DATE: 10/11/2019 REASON FOR CONSULT: Iron-deficiency anemia and positive fecal occult blood test. HISTORY OF PRESENT ILLNESS: Mr. Rick is a 59-year-old male with a history of COPD, asthma, heart disease, rheumatoid arthritis, ruptured disk, and BPH. He was admitted on 10/07/2019 with a complaint of shortness of breath and a left forearm pain that has developed into an abscess. The patient has a history of COPD, and he is on 2 L of oxygen at home. GI has been consulted for his iron-deficiency anemia and a positive fecal occult blood test. His H & on admission was 7.4 and 25.0 and yesterday it was 7.0 and 24.7, so far he has received 1 unit of blood. The patient has denied any nausea or vomiting, but complains of abdominal soreness, and he did mention that he has been noticing some black, tarry stools. The patient mentioned that he had fell 6 months back, and he has an abscess on his left forearm. The patient says that for the past 1 month onward, he has been eating normally, but has noticed that he has too much of gas and has constipations, and he goes once in 2-3 days. He mentioned having one on Friday and one today. The patient is afraid because his dad and brother both had colon cancer and he really wants to be treated. The patient has mentioned that he has never had a colonoscopy or an EGD done before. Patient was recently in the ER on 10/06 for his left arm abscess, an I& D was done, he was discharged home with Bactrim. The patient has mentioned that he has never had PAST MEDICAL HISTORY: COPD, asthma, heart disease, rheumatoid arthritis, ruptured disk, hypertension, atrial fibrillation on Eliquis, adrenal insufficiency, coronary artery disease with stents. ALLERGIES: The patient is allergic to cefepime. PAST SURGICAL HISTORY: Cholecystectomy. SOCIAL HISTORY: The patient is and has 1 kid. He mentioned that he quit smoking in December, quit drinking alcohol in December. He denies any illicit drugs use. He used to work, but he is currently on disability. FAMILY HISTORY: Both Dad and brother had colon cancer. Mother had sleep apnea. HOME MEDICATIONS: Arava 20 mg daily, atorvastatin 40 mg at bedtime, albuterol 3 mL inhaler as needed, Lamisil 250 mg daily, Multaq 400 mg twice a day, budesonide 2 puffs inhaler twice a day as needed, Altace 10 mg daily, albuterol sulfate 18 grams 2 puffs every 2 hours as needed, albuterol sulfate 2 puffs inhaled every 4 hours as needed, prednisone 10 mg 1 tablet 3 times a day, metoprolol tartrate 25 mg 1 tablet twice a day, Eliquis 5 mg 1 tablet twice a day, Protonix 40 mg 1 tablet daily, Brilinta 90 mg 1 tablet twice a day, sulfamethoxazole trimethoprim 1 tablet twice a day, hydrocodone/acetaminophen 7.5/325 mg 1 tablet every 6 hours as needed. REVIEW OF SYSTEMS: As per HPI. Otherwise, 12-point review of systems is negative. PHYSICAL EXAMINATION: Vital Signs: Temperature 99.3 degrees, pulse 62, respirations 18, blood pressure 120/91, oxygen saturation 94%. He is on 2 L nasal cannula. His weight is 299 pounds, BMI is 40.7 kg/m2. General: He is alert and oriented x3, answering questions appropriately. The patient is morbidly obese and in no acute distress. HEENT: Pale conjunctivae. No icterus. PERRL. Neck: Supple. Lungs: Clear to auscultation in the anterior hickman. Cardiovascular: Regular rate and rhythm. Abdomen: Soft, obese, generalized tenderness. Hypoactive bowel sounds heard in all 4 quadrants. Extremities: No clubbing, no cyanosis, no edema. Pedal pulses 2+ present bilaterally. Neurologic: He is alert and oriented x3. Nonfocal. Cranial nerves II through XII grossly intact. LABORATORY DATA: WBCs of 13.54, RBC 3.32, hemoglobin 7.0, hematocrit 24.7, platelet count is 356,000. Sodium 140, potassium 4.5, chloride 103, carbon dioxide is 27, anion gap 10, BUN 15, creatinine 1.0, glucose 87, calcium 8.3, and phosphorus 2.6. IMAGING: Chest X-ray o 10/08/ showed cardiomegaly with recurrent pulmonary edema or fibrosis. Chest CT on 10/08 showed anemia, pulmonary fibrosis with a UIP pattern. Renal U/s on 10/08 showed no obstructive uropathy. IMPRESSION AND PLAN: Microcytic anemia Family history of colon cancer in father at age 60 years and brother at age 50's. Positive fecal occult blood test Atrial fibrillation CAD s/p stent placement Diabetes type II Left arm abscess COPD Morbid obesity PLAN: Mr. Rick is a59 year old male with the history of A-fib, COPD and CAD, GI has been consulted fo his anemia and positive FOBT. We plan to do an EGD and Colonoscopy tomorrow to find out the cause of his anemia. The patient is currently on antibiotic Zyvox, for his abscess on his arm. He is receiving GI prophylaxis Protonix 40 mg for his gastrointestinal bleed. We have discussed the risks, benefits, and alternatives of the procedure to the patient. The patient acknowledges understanding of the plan of care. Further plan of care will be based on the EGD and colonoscopy findings. This plan was discussed with Dr. Hendrickson. Thank you for your consult. Please call us for any further questions or concerns. Dictated by EMMANUELLE Sexton for Brandan Hendrickson MD cc: Brandan Hendrickson MD I have seen and examined the patient myself and I agree with the above plan of care. I have discussed the above with the patient and all questions were answered. Please call us with any further questions. MTDD
[2019-10-11] MEDS ORDERED: ROBITUSSIN-DM PO PRN (16:35)
[2019-10-11] MEDS: NORCO-7.5 PO PRN (17:30)
--- NOTE | 2019-10-11 18:03 | PROGRESS NOTE ---
DATE: 10/11/2019 SUBJECTIVE: Today Mr. Rick refers to be doing well. He said he does have a mild cough. OBJECTIVE: Vital signs: Blood pressure 152/73, pulse of 75, respirations 16, temperature 98.9 degrees. General: Mr. Rick is a 59-year-old male, morbidly obese. He is in bed, no distress. HEENT: Mucosa is pink and moist. Anicteric. Acyanotic. Neck: Supple. Chest: Air entry is bilaterally reduced, distant. Wheezing in expiration. Cardiovascular: Regular rate and rhythm. GI: Abdomen is soft. It is distended but nontender. Bowel sounds present. Extremities: No pedal edema. The left upper extremity is in a sterile dressing. The patient's I's and O's, urine output was 3,800. He is currently negative balance of over 10,000. LABORATORY: Chemistry is reviewed, completely within normal range. Patient's creatinine has normalized, 1.0. IMAGING: No recent imaging studies. ASSESSMENT: 1. Acute on chronic hypoxemic respiratory failure on presentation, improved. 2. History of chronic obstructive pulmonary disease. On home 2 oxygen. 3. Atrial fibrillation. Currently rate controlled. 4. History of coronary artery disease, status post stent to the LAD. The patient is currently asymptomatic. 5. Left arm abscess with skin cellulitis. Culture positive for MRSA. Patient is on Zyvox. 6. Pulmonary fibrosis with usual interstitial pneumonitis pattern on a CAT scan. The patient is on breathing treatment, antimicrobials, and steroids. 7. History rheumatoid arthritis. 8. Morbid obesity with body mass index of 40.7, associated with obstructive sleep apnea. 9. Microcytic anemia secondary to iron deficiency with positive fecal occult blood test, concerning for gastrointestinal bleed. The patient has been evaluated by GI and there is a plan for bidirectional endoscopies tomorrow. 10. Iron deficiency anemia. Patient is status post 1 PRBC transfusion and Venofer. We will check on his hemoglobin and hematocrit for tomorrow morning. PLAN: So in general, Mr. Rick is a 59-year-old male who presented because of some wheezing and shortness of breath, which we attributed to COPD exacerbation. He is also has a left arm infection which was opened in the ER. The culture has come back positive for MRSA and he is on adequate antimicrobial coverage. Mr. Rick was also found to be in acute kidney failure which has resolved during the hospital course. We think this was due to Bactrim and his ARBs which have been discontinued since he is in the hospital. He was evaluated by Nephrology at the time. Currently, he is having evidence of GI bleed and he is waiting to have a bidirectional endoscopy tomorrow. Mr. Rick is still on antibiotics and treatment for his COPD/pulmonary fibrosis exacerbation. His disposition is going to depend on the rest of his hospital course. cc: Aron Marquez MD MTDD
--- NOTE | 2019-10-12 02:30 | GENERAL SURGERY PROGRESS NOTE ---
DATE: 10/11/2019 SUBJECTIVE: The patient is doing okay. He says his arm is feeling better. OBJECTIVE: Vital Signs: He is afebrile. Vital signs are stable. General: He is awake, alert, oriented x3. No acute distress. Extremities: The left arm shows improved swelling and erythema. I removed the packing. There is no clyde purulent drainage or fluctuance. LABORATORY DATA: None today. ASSESSMENT AND PLAN: A 59-year-old male with left forearm infected hematoma status post incision and drainage. I would recommend cleaning the wound with Betadine and covering with gauze daily, and continuing his Zyvox until the induration has resolved, probably for about 1 more week would suffice. cc: Angelo Williamson MD
[2019-10-12] MEDS: DUONEB (A & A) INH SCH ×4 (03:12→16:18)
[2019-10-12] MEDS: HUMALOG SUBQ SCH ×3 (06:56→16:04)
[2019-10-12 07:12] LABS: HEMATOCRIT 27.7 % (42.0-52.0); MCH 21.8 PG (27-31); MCHC 28.9 g/dL (33-37); MCV 75.5 FL (81-99); MPV 8.6 FL (7.4-10.4); RBC 3.67 XMIL (4.7-6.1); RDW 19.3 % (11.5-14.5); WBC 8.33 X1000 (4.8-10.8)
[2019-10-12 07:49] LABS: AGAP 13; ALBUMIN 3.2 g/dL (3.5-5.0); BUN 10 mg/dL (8-22); CALCIUM 8.6 mg/dL (8.8-10.2); CHLORIDE 100 mmol/L (98-107); COSMO 277; CREATININE 0.9 mg/dL (0.7-1.2); ESTIMATED GFR > 60; GLUCOSE 81 mg/dL (70-104); PHOSPHORUS 3.5 mg/dL (2.7-4.5); POTASSIUM 3.9 mmol/L (3.5-5.1); SODIUM 140 mmol/L (136-145); TCO2 27 mmol/L (25-35)
[2019-10-12] MEDS: PROTONIX IV SCH ×2 (08:02→10:02)
[2019-10-12] MEDS: ZYVOX 600 MG/D5W 600 MG/300 ML IVPB IV SCH ×2 (08:02→10:02)
[2019-10-12] MEDS: LOPRESSOR PO SCH (08:02)
[2019-10-12] MEDS: MULTAQ PO SCH (08:02)
[2019-10-12] MEDS: PREDNISONE PO SCH (08:02)
[2019-10-12] MEDS: LANTUS INSULIN SUBQ SCH (08:12)
[2019-10-12] MEDS: NORCO-7.5 PO PRN ×2 (08:13→16:04)
[2019-10-12] MEDS ORDERED: DIPRIVAN 1% ONE ×2 (10:52→11:17)
[2019-10-12] MEDS ORDERED: XYLOCAINE-MPF 2% ONE (10:54)
[2019-10-12] MEDS ORDERED: VERSED ONE (10:54)
--- NOTE | 2019-10-12 11:38 | ENDOSCOPY OPERATIVE NOTE ---
[facility] ENDOSCOPY OPERATIVE NOTE , EGD PROCEDURE REPORT EXAM DATE: 10/12/2019 PATIENT NAME: Britton Rick MR#: [id number] BIRTHDATE: 1960 ATTENDING: Mars Velásquez MD STATUS: inpatient CURTAIN CLEANER: INDICATIONS: The patient is a 59 yr old male here for an EGD due to iron deficiency anemia and melen a. PROCEDURE PERFORMED: EGD w/ biopsy, EGD with cautery MEDICATIONS: Per Anesthesia ESTIMATED BLOOD LOSS: None CONSENT: The patient understands the risks and benefits of the procedure and understands that these r isks include, but are not limited to: sedation, allergic reaction, infection, perforation and/or bleeding. Alternative means of evaluation and treatment include, among others: physical exam, x-rays, and/or surgical intervention. The patient elects to proceed with this endoscopic procedure. DESCRIPTION OF PROCEDURE: During pre-op preparation period all mechanical and medical equipment was c hecked for proper function. Hand hygiene and appropriate measures for infection prevention was taken. After the risks, benefits and alternatives of the procedure were thoroughly explained, Informed consent was verified, confirmed and timeout was successfully executed by the treatment team. The patient was anesthetized with topical anesthesia and the endoscope was introduced through the mouth and advanced to the second portion of the duodenum. Retroflexion wa s performed in the stomach and revealed no abnormalities. The gastroscope was then slowly withdrawn and removed. The p atient's toleration of the procedure was excellent. ESOPHAGUS: Reflux esophagitis was found in the lower third of the esophagus. Esophagitis was LA Clas s A: One or more mucosal breaks < 5 mm in maximal length. STOMACH: A small non-bleeding angioectasia was found in the gastric body. Cautery was applied to the site(s). The mucosa of the stomach appeared normal. A biopsy was performed using cold forceps. DUODENUM: The duodenum was normal. A biopsy was performed using cold forceps. ADVERSE EVENTS: There were no complications. IMPRESSIONS: 1. Reflux esophagitis in the lower third of the esophagus 2. Non-bleeding angioectasia in the gastric body; cautery was applied to the site. This could repre sent source of anemia. 3. The mucosa of the stomach appeared normal; biopsy was performed 4. The duodenum was normal; biopsy was performed RECOMMENDATIONS: 1. Await biopsy results 2. Start with pantoprazole 40mg PO once daily 3. Continue to colonoscopy procedure REPEAT EXAM: Mars Velásquez MD eSigned: Mars Velásquez MD 10/12/2019 11:38 AM CC: CPT CODES: 88472 Upper gastrointestinal endoscopy including esophagus, stomach, and either the du odenum and/or jejunum as appropriate; with biopsy, single or multiple ICD CODES: 280.9 Iron deficiency anemia,unspecified 578.1 Blood in stool 530.11 Reflux esophagitis 532.82 Angiodysplasia of stomach and duodenum (without mention of hemorrhage) The ICD and CPT codes recommended by this software are interpretations from the data that the [facility] staff has captured with the software. The verification of the translation of this report to the ICD and CPT co kevin and modifiers is the sole responsibility of the health care institution and practicing physician where this report was generated. [employer] will not be held responsible for the validity of the ICD and CPT codes i ncluded on this report. AMA assumes no liability for data contained or not contained herein. CPT is a registered tra demark of the [employer]. PATIENT NAME: Britton Rick MR#: [id number]
--- NOTE | 2019-10-12 11:44 | ENDOSCOPY OPERATIVE NOTE ---
[facility] ENDOSCOPY OPERATIVE NOTE , COLONOSCOPY PROCEDURE REPORT EXAM DATE: 10/12/2019 PATIENT NAME: Britton Rick MR #: [id number] BIRTHDATE: 1960 ENDOSCOPIST: Mars Velásquez MD STATUS: inpatient CHILD PROTECTIVE INVESTIGATOR: INDICATIONS: The patient is a 59 yr old male here for a colonoscopy due to iron deficiency anemia an d melena. PROCEDURE PERFORMED: Colonoscopy, diagnostic MEDICATIONS: Per Anesthesia PREP TYPE: GoLytely
--- NOTE | 2019-10-12 14:13 | PROGRESS NOTE ---
DATE: 10/12/2019 SUBJECTIVE: Mr. Rick was admitted on 10/07/2019. Patient of Dr. Collazo. Presented with shortness of breath, wheezing, left arm infection. A 59-year-old gentleman with history of COPD at home, he is on home oxygen, hypertension, rheumatoid arthritis, benign prostatic hypertrophy. He presented to the emergency room complaining of shortness of breath, increased over the last 24 hours, as well as left forearm pain. The patient does have a history of COPD, and he is on home oxygen. States he has chronic shortness of breath, although over the last 24 to 36 hours, became progressively worse, and he reached a place of 90-degree orthopnea. Looking at his old records, he was in the emergency room on 10/06/2019 with left arm abscess, measured 3 to 5 x [address] scan, and read as multilobulated peripheral enhancing complex fluid collection in the forearm, subcutaneous tissue extends to the muscles. Underwent I and D, and it was packed, and discharged to home with Bactrim. PAST MEDICAL HISTORY: 1. COPD, on home O2. 2. Atrial fibrillation, on chronic anticoagulation with Eliquis. 3. Adrenal insufficiency. 4. Coronary artery disease with stenting. 5. Rheumatoid arthritis. 6. Hypertension. Admitted with COPD exacerbation and abscess of left forearm. He reports that he is feeling better and doing better. PHYSICAL EXAMINATION: Vital Signs: Temperature 98.7 degrees, pulse 77, respirations 22, blood pressure 126/59. HEENT: Pupils are equal and round. CVP less than 6 cm. Lungs: Clear in all lung hickman. Cardiovascular: Regular rhythm and rate without murmur or S3. Abdomen: Soft. Skin: Warm and dry. ASSESSMENT AND PLAN: 1. Left forearm infected hematoma, status post incision and drainage. Continue to clean the wound. Topical care, clean with Betadine, cover with gauze daily. Continue Zyvox until the induration is resolved, probably for 1 more week. 2. He is planning on getting a colonoscopy for iron-deficiency anemia and melena. Esophagogastroduodenoscopy with biopsy and esophagogastroduodenoscopy with cautery was performed already. Nonbleeding angiectasia of the gastric body. Cautery was applied to that site. Reflux esophagitis in the lower third of the esophagus. Mucosa of the stomach appeared normal. Duodenum was normal, so we are going to get a colonoscopy today. 3. History of atrial fibrillation. Rate is controlled. 4. History of coronary artery disease, status post stent to left anterior descending. 5. Pulmonary fibrosis with interstitial pneumonitis pattern on CT scan. His gas exchange and air exchange seem to be doing well. 6. History of rheumatoid arthritis. 7. Morbid obesity. 8. Iron-deficiency anemia and microcytic anemia as mentioned above. He is status post 1 unit of packed red blood cells and he got some Venofer. His hematocrit and hemoglobin are stable, hematocrit is 27, hemoglobin is 8. His MCV was 75. Electrolytes reviewed. Blood sugars have been well controlled, 156, 82, 81, and 134. REVIEW OF ORDERS: I do not see any change. He is getting ferrous sulfate 325 mg b.i.d., metoprolol 25 mg b.i.d., Protonix 40 mg p.o. every a.m., linezolid 600 mg IV every 12 hours. cc: Bill Carmona MD
[2019-10-12 15:50] VITALS: BP 172/78
--- NOTE | 2019-10-12 18:19 | DISCHARGE SUMMARY ---
ADMISSION DATE: 10/07/2019 DISCHARGE DATE: 10/12/2019 HISTORY: Patient of Dr. Ish Collazo. Came in with shortness of breath, wheezing, left arm infection. He is a 59-year-old gentleman with prior history of COPD on home O2, hypertension, rheumatoid arthritis, benign prostatic hypertrophy, who presented to the emergency room complaining of shortness of breath that increased over the last 24 hours, as well as left forearm pain. He presented on 10/07/2019. The patient does have a history of COPD. He is on home O2 at 2 L. States he has chronic shortness of breath although the last 24-36 hours he got progressively worse. He had reached 90 degree orthopnea and felt he had to come for evaluation. Denied any chest pain or palpitations. Mr. Rick was in the emergency room in October 06 of this year for left arm abscess which measured 3 x 5 x [address] scan and it was read as multilobulated peripheral enhancing complex fluid collection in the forearm subcutaneous tissue extended in the muscles. He underwent I and D and was packed and discharged [place]rim[place] [id number]. Creatinine 0.8, returned to the emergency room with sodium 123 and creatinine of 3. Received a L of IV fluids followed by 40 mg of Lasix while in the emergency room. PAST MEDICAL HISTORY: 1. COPD on home O2. 2. Atrial fibrillation, on chronic anticoagulation with Eliquis. 3. Adrenal insufficiency. 4. Coronary artery disease with stenting. 5. Rheumatoid arthritis. 6. Hypertension. PAST SURGICAL HISTORY: Cholecystectomy. ADMISSION DIAGNOSES: 1. Chronic obstructive pulmonary disease acute exacerbation, continued on O2, DuoNeb and some steroids. 2. Abscess of the left arm. Culture had been obtained. Antibiotic coverage of Zyvox and Azactam. Renal dosed and cultures were obtained. 3. Leukocytosis secondary to #2. 4. Acute kidney injury, likely secondary to dehydration, vancomycin and Bactrim so held those medications. Renal function improved. 5. Hyponatremia which improved as well with some volume. 6. History of hypertension. Continue to watch his blood pressure. Continue his blood pressure medications. 7. Pulmonary edema, pulmonary venous hypertension versus pulmonary fibrosis. CT scan was planned. 8. Anemia with hemoglobin and hematocrit declined in January. Hemoglobin was 9.8. In September was 8.4 and on admission was 7.4, and he was started on Brilinta and started on Eliquis in May so held those medications and followed his hematocrit and hemoglobin. 9. History of atrial fibrillation. Continued his Multaq and held his anticoagulation. Rate was controlled. 10. History of coronary artery disease status post percutaneous coronary intervention. Looks like this is back in January 2019. He was placed on Brilinta at that time. 11. Adrenal insufficiency. He was put on stress doses of steroids. 12. The patient's nutrition and p.o. intake seems to be doing fairly well. HOSPITAL COURSE: Renal ultrasound was done on 10/08. No evidence of obstructive uropathy. General surgery evaluated on 10/08. Blackwell he had chronic pulmonary disease, coronary artery disease and what now appears to be infected hematoma left forearm. He is status post incision and drainage with some relief. His primary complaint when he came in was chest pain and shortness of breath. The arm was draining and seemed to be improving. Continued antibiotics and observation. May require further drainage in the operating room. GI was asked to see him and Dr. Hendrickson evaluated. History of atrial fibrillation, COPD, coronary artery disease and because of the anemia and positive Hemoccult. The plan was to do an EGD and colonoscopy and these were performed and found on colonoscopy mild nonbleeding diverticulosis noted in the sigmoid colon. Small internal hemorrhoids. EGD they found reflux esophagitis in the lower 3rd of the esophagus. Esophagitis was LA class A, one or more mucosal breaks less than 5 mm in maximal length. Non- small, non-bleeding angiectasia found in the gastric body. Cautery was applied. Mucosa of the stomach appeared normal. Biopsy was performed. Duodenum was normal. Biopsy was performed. The patient was feeling better and wanted to go home. Continue topical care. Dr. Williamsno suggested we give antibiotic for another 7 days. Culture did grow Staphylococcus aureus and it was resistant to oxacillin so methicillin-resistant Staphylococcus. Blackwell like he could go back on his Bactrim and so he will get Bactrim Double Strength 1 twice a day for another 7 days. FOLLOW-UP INSTRUCTIONS: Follow up with surgery. Follow up with his primary care. DISCHARGE MEDICATIONS: He will be on his DuoNeb at home. He already has home O2. He has Ventolin HFA 2 puffs q.2 hours p.r.n. He is on Eliquis I believe at 5 mg p.o. b.i.d., calcium 40 mg at bedtime, budesonide formoterol which is Symbicort 160/4.5 two puffs b.i.d., Multaq 400 mg p.o. b.i.d. he takes Everetts at home 7.5 mg as needed q.6 hours, Arava 20 mg p.o. daily, metoprolol he takes 1 tablet b.i.d., Protonix 1 tablet daily, prednisone 1 tablet p.o. t.i.d. Altace 10 mg a day. Continue his Bactrim Double Strength 1 twice a day. Lamisil 250 mg a day and Brilinta 1 tab b.i.d. cc: Bill Carmona MD
[2019-10-12] MEDS ORDERED: FERROUS SULFATE PO SCH (21:00)
--- NOTE | 2019-10-12 21:24 | GENERAL SURGERY PROGRESS NOTE ---
DATE: 10/12/2019 SUBJECTIVE: The patient denies pain in his left arm. OBJECTIVE: Vital signs: He is afebrile. Vital signs are stable. General: He is awake, alert, and oriented x3. No acute distress. Extremities: His left arm is dressed. There is no foul drainage, just some bloody drainage. It is not particularly tender. ASSESSMENT AND PLAN: A 59-year-old male with left forearm infected hematoma, status post incision and drainage. This is improving. He can be discharged home from my standpoint. He has instructions to clean it with Betadine and continue Zyvox as prescribed. cc: Angelo Williamson MD
[2019-10-13] MEDS ORDERED: PROTONIX PO SCH (09:00)
== END 2019-10-12 18:06 | disposition home or self-care (01) | DRG 191 ==
LOC: SUPCPDRO → ED 23:07 → SUATTDRO 23:08 → EDIPHOLD 23:08 → 4N 10-08 11:10
PROVIDERS: ATTEND Emergency Medicine